=== PATIENT | female | born 1935 | race Caucasian/White ===

== ENCOUNTER → 2018-05-05 09:14 | Outpatient (POV) | payer MEDICARE, BC, SELFPAY | PROVIDERS: Visit Provider Dermatology | DX: Z00.00 Encounter for general adult medical examination without abnormal findings (principal) ==

== ENCOUNTER → 2018-08-13 15:00 | Outpatient (CLI) | payer MEDICARE, BC, SELFPAY ==
[2018-08-16 11:23] LABS: Occult Blood,Stool Negative (Negative)
== END ==
PROVIDERS: PCP Emergency Medicine; Visit Provider Emergency Medicine
DX: D64.9 Anemia, unspecified (principal)
CPT/HCPCS: 82272; G0328

== ENCOUNTER → 2018-08-14 15:30 | Outpatient (CLI) | payer MEDICARE, BC, SELFPAY ==
[2018-08-16 11:23] LABS: Occult Blood,Stool Negative (Negative)
== END ==
PROVIDERS: PCP Emergency Medicine; Visit Provider Emergency Medicine
DX: D64.9 Anemia, unspecified (principal)
CPT/HCPCS: 82272; G0328

== ENCOUNTER → 2018-08-15 16:00 | Outpatient (CLI) | payer MEDICARE, BC, SELFPAY ==
[2018-08-16 11:23] LABS: Occult Blood,Stool Negative (Negative)
== END ==
PROVIDERS: PCP Emergency Medicine; Visit Provider Emergency Medicine
DX: D64.9 Anemia, unspecified (principal)
CPT/HCPCS: 82272; G0328

== ENCOUNTER → 2018-08-16 09:35 | Outpatient (CLI) | payer MEDICARE, BC, SELFPAY ==
[2018-08-16 09:42] LABS: Microscopic, Urine URINE MICROSCOPIC (MICROSCOPIC)
[2018-08-16 09:57] LABS: Appearance,Urine CLEAR (Clear); Bilirubin,Urine Negative (Negative); Blood, Urine Negative (Negative); Color,Urine YELLOW (Yellow); Glucose,Urine (UA) Negative (Negative); Ketones,Urine Negative (Negative); Leukocyte Esterase,Urine Negative (Negative); Nitrate,Urine Negative (Negative); PH,Urine 7.5 (5.0-8.5); Protein,Urine Negative (Negative); Urobilinogen,Urine 0.2 EU/dl (0.2)
[2018-08-16 10:13] LABS: Bacteria,Urine Trace /lpf
[2018-08-16 10:37] LABS: Basophils % 0.4 % (0.1-2.0); Eosinophils # 0.2 K/mm3 (0.0-0.4); Eosinophils % 4.7 % (0.1-12.0); Hematocrit 38.7 % (37.0-47.0); Hemoglobin 12.5 g/dL (12.2-16.2); Lymphocytes # 2.5 K/mm3 (0.7-4.5); Lymphocytes % 49.3 K/mm3 (10-50); Mean Corpuscular HGB Conc 32.2 g/dL (31.8-35.4); Mean Corpuscular Hemoglobin 29.3 pg (27.0-31.2); Mean Platelet Volume 6.7 fl (7.4-10.4); Monocytes # 0.3 K/mm3 (0.1-1.0); Monocytes % 5.2 % (1.7-9.3); Neutrophils % 40.3 % (37.0-80.0); Platelet Count 249 K/mm3 (142-424); Red Blood Count 4.26 M/mm3 (4.20-5.40); Red Cell Distribution Width 13.4 % (11.5-17.5); Reticulocyte % (Auto) 1.5 % (0.9-3.2)
[2018-08-17 13:56] LABS: Haptoglobin 134 mg/dL (34-200)
== END ==
PROVIDERS: PCP Emergency Medicine; Visit Provider Emergency Medicine
DX: D64.9 Anemia, unspecified (principal)
CPT/HCPCS: 36415; 81001; 83010; 85025; 85044

== ENCOUNTER → 2018-09-20 14:22 | Outpatient (CLI) | payer MEDICARE, BC, SELFPAY ==
--- NOTE | 2018-09-20 14:27 | XR_ITS ---
XR DEXA axial skeleton HISTORY: ITS.REASON: POSTMENOPAUSAL ORDERING PHYSICIAN: Yanick Fowler MD PATIENT AGE: 83 years COMPARISON: 03/16/2014 FINDINGS: The BMD measured at the Left femoral neck is 0.974 g/cm squared with a T score of -0.5. This is considered Normal according to the World Health Organization criteria. Fracture risk is low. The L1 L4 density has a T score of 0.0 which is normal. IMPRESSION: Normal bone density. Low fracture risk. Suggest follow up exam September 2020
--- NOTE | 2018-09-20 14:27 | MM_ITS ---
MM Dig screening mamm BI w/CAD ORDERING PHYSICIAN : Yanick Fowler MD PATIENT AGE: 83 years GENDER: Female COMPARISON: September 2017, August 2016, 2014, 2013 2012 . July 2011 INDICATION: ITS.REASON: SCREENING no hormones. No new complaints.. Family history maternal aunt with breast cancer in her 50s TECHNIQUE: Standard CC and MLO images were obtained. R2 CAD reviewed. Additional repeat right MLO view included FINDINGS: Lower density breast with generalized fatty replacement and minimal residual fibroglandular elements bilaterally. . No new areas of concern. No dominant mass. No suspicious calcifications. There are some scattered benign punctate calcifications some of which reflects benign skin calcifications both breast which are unchanged RIGHT BREAST:No new areas concern. Follow-up in one year LEFT BREAST:No new areas significant concern. Tiny stable area slightly more evident fibroglandular elements at the central left breast appears stable since 2010 IMPRESSION: Stable bilateral mammogram. Follow-up follow-up in one year recommended. BI-RADS Category: 1 Negative RECOMMENDED FOLLOW-UP: 1YR 1 YEAR FOLLOW-UP (A letter has been sent to the patient regarding results of the study.)
== END ==
PROVIDERS: PCP Family Medicine; Visit Provider Family Medicine
DX: Z12.31 Encounter for screening mammogram for malignant neoplasm of breast (principal); Z78.0 Asymptomatic menopausal state
CPT/HCPCS: 77067; 77080

== ENCOUNTER → 2019-04-25 14:19 | Outpatient (POV) | payer MEDICARE, BC, SELFPAY | PROVIDERS: Visit Provider Dermatology | DX: Z00.00 Encounter for general adult medical examination without abnormal findings (principal) ==

== ENCOUNTER → 2019-08-15 09:37 | Outpatient (POV) | payer MEDICARE, BC, SELFPAY | PROVIDERS: Visit Provider Dermatology | DX: Z00.00 Encounter for general adult medical examination without abnormal findings (principal) ==

== ENCOUNTER → 2019-09-12 14:42 | Outpatient (POV) | payer MEDICARE, BC, SELFPAY | PROVIDERS: Visit Provider Dermatology | DX: Z00.00 Encounter for general adult medical examination without abnormal findings (principal) ==

== ENCOUNTER → 2019-10-06 08:43 | Outpatient (CLI) | payer MEDICARE, BC, SELFPAY ==
--- NOTE | 2019-10-06 08:49 | MM_ITS ---
PROCEDURE: MM DIG SCREENING MAMM BI W/CAD CLINICAL INDICATION: SCREENING There is a history of breast cancer patient's maternal aunt. COMPARISON: [facility] DIG MAMM-SCREEN SARITA from 08/31/2016 [facility] DIG MAMM-SCREEN [facility] W/CAD from 09/03/2017 [facility] MM Dig screening mamm BI w/CAD from 09/20/2018 TECHNIQUE: Standard CC and MLO images were obtained. R2 CAD reviewed. FINDINGS: The breasts are composed primarily of fat with scattered fibroglandular densities throughout each breast. There are 2 mole markers right breast and a single mole marker left breast. There are few benign-appearing microcalcifications in each breast. There is no suspicious lesion in either breast and no suspicious microcalcifications. IMPRESSION: Fibrofatty parenchyma with no suspicious lesions seen BI-RAD Category: 2 Benign Finding(s) FOLLOW-UP: 1YR 1 Year Follow-up (A letter has been sent to the patient regarding results of the study.) Dictated by: Dr. Maynor Stahl MD 10/06/2019 14:[address] Maynor Stahl MD in [place] 10/06/2019 14:23
== END ==
PROVIDERS: PCP Family Medicine; Visit Provider Family Medicine
DX: Z12.31 Encounter for screening mammogram for malignant neoplasm of breast (principal)
CPT/HCPCS: 77067

== ENCOUNTER → 2020-04-30 08:54 | Outpatient (POV) | payer MEDICARE, BC, SELFPAY | PROVIDERS: PCP Family Medicine; Visit Provider Physician Assistant | DX: Z00.00 Encounter for general adult medical examination without abnormal findings (principal) ==

== ENCOUNTER → 2020-07-16 08:42 | Outpatient (POV) | payer MEDICARE, BC, SELFPAY | PROVIDERS: Visit Provider Dermatology | DX: Z00.00 Encounter for general adult medical examination without abnormal findings (principal) ==

== ENCOUNTER → 2020-10-10 08:42 | Outpatient (CLI) | payer MEDICARE, BC, SELFPAY ==
--- NOTE | 2020-10-10 08:49 | MM_ITS ---
PROCEDURE: MM DIG SCREENING MAMM BI W/CAD Digital Breast Tomosynthesis Included CLINICAL INDICATION: SCREENING There is a history of breast cancer in the patient's maternal aunt. COMPARISON: MG [facility] DIG MAMM-SCREEN [facility]ITA W/CAD from 09/03/2017 MG [facility] MM Dig screening mamm BI w/CAD from 09/20/2018 MG MM DIG SCREENING MAMM BI W/CAD from 10/06/2019 TECHNIQUE: Standard CC and MLO images and 3D Tomosynthesis was obtained. R2 CAD reviewed. FINDINGS: Mild scattered fibroglandular densities are seen. There is a mole marker right breast. There are few benign-appearing microcalcifications in each breast. There is no suspicious lesion and no suspicious microcalcifications. IMPRESSION: Fibrofatty parenchyma with no suspicious lesions seen BI-RAD Category: 2 Benign Finding(s) FOLLOW-UP: 1YR 1 Year Follow-up (A letter has been sent to the patient regarding results of the study.) Dictated by: Dr. Maynor Stahl MD 10/11/2020 10:04 Dr. Maynor Stahl MD in [place] 10/11/2020 10:04
== END ==
PROVIDERS: PCP Family Medicine; Visit Provider Family Medicine
DX: Z12.31 Encounter for screening mammogram for malignant neoplasm of breast (principal)
CPT/HCPCS: 77063; 77067

== ENCOUNTER → 2021-03-18 10:26 | Outpatient (CLI) | payer MEDICARE, BC, SELFPAY ==
[2021-03-18 11:02] LABS: Chloride 101 mmol/L (98-107)
[2021-03-18 11:03] LABS: Potassium 3.6 mmoL/L (3.5-5.1); Sodium 138 mmol/L (136-145)
[2021-03-18 11:05] LABS: Alanine Aminotransferase 21 U/L (12-78); Aspartate Amino Transferase 30 U/L (14-36); Blood Urea Nitrogen 23 mg/dl (7-17); Estimated Glomerular Filt Rate 68 ml/min (>60); GFR (African American) 83 ML/MIN (>60)
[2021-03-18 11:06] LABS: Albumin Level 4.2 g/dl (3.5-5.0); Albumin/Globulin Ratio 1.4 (1.1-1.8); Alkaline Phosphatase 82 U/L (38-126); Anion Gap 12.6 mEq/L (5-15); Bilirubin,Total 0.5 mg/dl (0.2-1.3); Calcium 9.3 mg/dl (8.4-10.2); Carbon Dioxide 28 mmol/L (22.0-30.0); Chol/HDL Ratio 1.9 (1-3.5); Cholesterol 113 mg/dl (140-200); Globulin 2.9 g/dL (1.3-3.2); Glucose 118 mg/dl (74-100); HDL Cholesterol 58 mg/dl (40-60); Total Protein,Serum 7.1 g/dl (6.3-8.2); Triglycerides 106 mg/dl (30-150); VLDL Cholesterol 21 mg/dL (0-40)
[2021-03-18 11:20] LABS: Direct LDL Cholesterol < 30.00 mg/dL (100-129)
[2021-03-18 11:39] LABS: Thyroid Stimulating Hormone 0.67 uIU/mL (0.465-4.68)
[2021-03-18 11:42] LABS: Hemoglobin A1C 7.4 % (4.0-6.0)
== END ==
PROVIDERS: Visit Provider Family Medicine
DX: E78.5 Hyperlipidemia, unspecified (principal); E11.9 Type 2 diabetes mellitus without complications; Z79.84 Long term (current) use of oral hypoglycemic drugs
CPT/HCPCS: 36415; 80053; 80061; 83036; 84443

== ENCOUNTER → 2021-04-29 14:47 | Outpatient (POV) | payer MEDICARE, BC, SELFPAY | PROVIDERS: Visit Provider Dermatology | DX: Z00.00 Encounter for general adult medical examination without abnormal findings (principal) ==

== ENCOUNTER → 2021-07-08 09:35 | Outpatient (POV) | payer MEDICARE, BC, SELFPAY | PROVIDERS: Visit Provider Dermatology | DX: Z00.00 Encounter for general adult medical examination without abnormal findings (principal) ==

== ENCOUNTER → 2021-09-30 14:42 | Outpatient (POV) | payer MEDICARE, BC, SELFPAY | PROVIDERS: Visit Provider Dermatology | DX: Z00.00 Encounter for general adult medical examination without abnormal findings (principal) ==

== ENCOUNTER → 2021-10-17 14:58 | Outpatient (CLI) | payer MEDICARE, BC, SELFPAY ==
--- NOTE | 2021-10-17 15:02 | MM_ITS ---
PROCEDURE INFORMATION: Exam: MG Bilateral Screening 3D Mammography Exam date and time: 10/17/2021 3:02 PM Age: 86 years old Clinical indication: Screening mammogram TECHNIQUE: Imaging protocol: Bilateral screening tomosynthesis and 2D mammography including computer-aided detection (CAD) when performed. COMPARISON: 1. MG MM DIG SCREENING MAMM BI W/CAD 10/10/2020 8:55 AM 2. MG MM DIG SCREENING MAMM BI W/CAD 10/06/2019 9:06 AM 3. MG [facility] MM Dig screening mamm BI w/CAD 09/20/2018 2:49 PM 4. MG [facility] DIG MAMM-SCREEN [facility]ITA W/CAD 09/03/2017 9:09 AM FINDINGS: MAMMOGRAPHY: Breast composition: There are scattered areas of fibroglandular density. Mass: None. Architectural distortion: No new or suspicious architectural distortion. Calcifications: No new or suspicious calcifications are present Asymmetric density: No new or suspicious asymmetric density is present Skin thickening: None. Axillary adenopathy: None. IMPRESSION: No mammographic evidence of malignancy. Recommend annual screening mammography unless otherwise clinically indicated. ASSESSMENT: BI-RADS category 1: Negative
== END ==
PROVIDERS: PCP Family Medicine; Visit Provider Family Medicine
DX: Z12.31 Encounter for screening mammogram for malignant neoplasm of breast (principal)
CPT/HCPCS: 77063; 77067

== ENCOUNTER → 2022-02-05 08:57 | Outpatient (CLI) | payer MEDICARE, BC, SELFPAY ==
--- NOTE | 2022-02-05 09:05 | XR_ITS ---
FINAL REPORT TECHNIQUE: Bone densitometry calculations of the lumbar spine and left hip were obtained. CLINICAL HISTORY: . post menopausal FINDINGS: Using L1-4, the bone mineral density of the spine is 1.122 g/cm2, corresponding to T-score of 0.7. Using the left hip, the bone mineral density of the femoral neck is 0.820 g/cm2, corresponding to a T-score of -1.0. Using the right hip, the bone mineral density of the femoral neck is 0.845 g/cm2, corresponding to a T-score of 0.0. NOTE: T-score: Standard deviation compared with peak bone mass of young adult mean. *Following the recommendations of the International Society of Bone densitometry, classification of hip BMD is based on the lower of two T-scores; total hip or femoral neck. IMPRESSION: Normal bone mineral density of the lumbar spine and hip. FRAX not recorded due to also course being above -1.0. Reviewed, Interpreted and Dictated by Yanick Collins III, MD Transcribed by Guerda Quezada Authenticated by Yanick Collins III, MD on 02/05/2022 10:51:08 AM [facility]
== END ==
PROVIDERS: PCP Family Medicine; Visit Provider Physician Assistant
DX: Z78.0 Asymptomatic menopausal state (principal)
CPT/HCPCS: 77080

== ENCOUNTER → 2022-04-14 09:18 | Outpatient (POV) | payer MEDICARE, BC, SELFPAY | PROVIDERS: Visit Provider Dermatology | DX: Z00.00 Encounter for general adult medical examination without abnormal findings (principal) ==

== ENCOUNTER → 2022-07-07 10:07 | Outpatient (POV) | payer MEDICARE, BC, SELFPAY | PROVIDERS: Visit Provider Dermatology | DX: Z00.00 Encounter for general adult medical examination without abnormal findings (principal) ==

== ENCOUNTER → 2022-10-29 07:59 | Outpatient (CLI) | payer MEDICARE, BC, SELFPAY ==
--- NOTE | 2022-10-29 08:02 | MM_ITS ---
PROCEDURE INFORMATION: Exam: MG Bilateral Screening 3D Mammography Exam date and time: 10/29/2022 7:55 AM Age: 87 years old Clinical indication: Screening examination TECHNIQUE: Imaging protocol: Bilateral Screening tomosynthesis and 2D mammography including computer-aided detection (CAD) when performed. COMPARISON: 1. MG MM DIG SCREENING MAMM BI W/CAD 10/17/2021 2:57 PM 2. MG MM DIG SCREENING MAMM BI W/CAD 10/10/2020 8:55 AM FINDINGS: MAMMOGRAPHY: Breast composition: There are scattered areas of fibroglandular density. Mass: None. Architectural distortion: None. Calcifications: No suspicious calcifications. Asymmetric density: None. Skin thickening: None. Axillary adenopathy: None. IMPRESSION: No mammographic evidence of malignancy. Annual screening is recommended unless otherwise clinically indicated. ASSESSMENT: BI-RADS Category 1: Negative
== END ==
PROVIDERS: PCP Family Medicine; Visit Provider Family Medicine
DX: Z12.31 Encounter for screening mammogram for malignant neoplasm of breast (principal)
CPT/HCPCS: 77063; 77067

== ENCOUNTER → 2022-11-17 14:54 | Outpatient (CLI) | payer MEDICARE, BC, SELFPAY ==
--- NOTE | 2022-11-17 15:02 | XR_ITS ---
FINAL REPORT CLINICAL HISTORY: PAIN FINDINGS: An AP view of the pelvis and a frog leg views of the right hip were obtained. There is no prior exam for comparison. There is no acute fracture or dislocation. 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 Remaining osseous pelvis is within normal limits. Soft tissues are within normal limits. IMPRESSION: No acute osseous abnormality of the right hip. If pain persists, consider MR. Reviewed, Interpreted and Dictated by Jazmyne Bailey MD Transcribed by Naren Ocampo Authenticated and [facility]
== END ==
PROVIDERS: PCP Nurse Practitioner Family; Visit Provider Nurse Practitioner Family
DX: M25.551 Pain in right hip (principal)
CPT/HCPCS: 73502

== ENCOUNTER → 2022-11-23 10:56 | Outpatient (CLI) | payer MEDICARE, BC, SELFPAY ==
--- NOTE | 2022-11-23 11:01 | XR_ITS ---
FINAL REPORT CLINICAL HISTORY: BACK PAIN FINDINGS: AP and lateral views of the sacrum and coccyx were obtained. There is no prior exam for comparison. There is no acute fracture or other acute osseous abnormality. There is degenerative disease of the SI joints bilaterally with mild sclerosis across the joint, left greater than right. The sacrococcygeal articulation appears within normal limits. No acute soft tissue abnormality is present. IMPRESSION: SI joint degenerative disease. Reviewed, Interpreted and Dictated by Jazmyne Bailey MD Transcribed by Naren Ocampo Authenticated and [facility]
--- NOTE | 2022-11-23 11:01 | XR_ITS ---
FINAL REPORT CLINICAL HISTORY: BACK PAIN FINDINGS: AP, lateral, and oblique views of the lumbar spine were obtained. There is grade 2-3 anterior spondylolisthesis of L5 on S1. There is mild retrolisthesis of L1 on L2 and L2 on L3. There is no acute fracture. There is multilevel degenerative disease most pronounced at L5-S1. No acute paraspinal abnormality is identified. IMPRESSION: Grade 2-3 anterior spondylolisthesis of L5 on S1. Multilevel degenerative disease. Reviewed, Interpreted and Dictated by Jazmyne Bailey MD Transcribed by Naren Ocampo Authenticated and [facility]
== END ==
PROVIDERS: PCP Family Medicine; Visit Provider Nurse Practitioner Family
DX: M54.50 Low back pain, unspecified (principal); M46.1 Sacroiliitis, not elsewhere classified
CPT/HCPCS: 72110; 72220

== ENCOUNTER → 2022-11-27 13:56 | Outpatient (CLI) | payer MEDICARE, BC, SELFPAY ==
--- NOTE | 2022-11-27 13:59 | MR_ITS ---
FINAL REPORT TECHNIQUE: Multiplanar MR without contrast CLINICAL HISTORY: CONSTANT HIP PAIN right hip pain x 1 month pt stated hip wants to give out FINDINGS: The marrow signal pattern is normal. There is no evidence of avascular necrosis. There is mild thinning of the articular cartilage compatible with mild degenerative change. Physiologic joint effusion is seen. Labrum shows a normal MR appearance. Adjacent soft tissues are unremarkable. IMPRESSION: Mild degenerative change. Reviewed, Interpreted and Dictated by Yanick Flores MD Transcribed by Guerda Quezada Authenticated and . [facility]
== END ==
PROVIDERS: PCP Family Medicine; Visit Provider Nurse Practitioner Family
DX: M25.551 Pain in right hip (principal)
CPT/HCPCS: 73721

== ENCOUNTER → 2022-12-24 11:01 | Outpatient (POV) | payer MEDICARE, BC, SELFPAY ==
[2022-12-24 11:53] VITALS: BP 149/94; PULSE 82; RESP 18; O2SAT 98; BMI 25.6
--- NOTE | 2022-12-24 12:26 | EXP.PAIN.OV ---
HPI Data of Consult Patient: new to practice Consult date: 12/24/22 Requesting Physician: Leah Llanos APRN Primary Care Provider: Leonides Haynes MD Consult Narrative Reason for consult: Right hip pain, right buttocks pain, low back pain History of present illness: Ms. Vanessa is a 87 year old female who presents today as a new patient. She is a referral from Femi Llanos's office. Today she rates her pain a 10 out of 10. Patient states that she is experiencing significant pain along her right buttocks into her right hip. Patient states this has been going on since . Patient denies any specific trauma or injury. Patient states the only thing that she can think of was that she was leaning over to get a can in her pantry and felt something pull. Patient does state that it has progressively worsened since that time. Patient does describe this as a aching sensation that is worse with increased activity. Patient has had imaging of her lumbar spine along with her hip and sacrum. Patient states she does typically use Tylenol and ibuprofen with some improvement. Patient states she will also use a heating pad and Salonpas patches for additional relief. Patient does state this helps however it is only temporary. Patient is very active and goes to the wellness center on a daily basis. Patient denies any previous injection history. Patient is currently managed with gabapentin 300 mg twice a day from Dr. Haynes's office. Patient denies any side effects from this medication. Her Ravinder is [phone]. Its been reviewed and appropriate. CC: Leah Llanos APRN [facility] Disclaimer: The information contained in this section may have been updated after the patient was seen, as this information can be updated by other users. Medical History (Updated 12/24/22 @ 12:33 by Leah Llanos APRN) Diabetes HLD (hyperlipidemia) HTN (hypertension) Neuropathy Surgical History (Updated 12/24/22 @ 11:56 by Amber Osborne RN) H/O: hysterectomy Family History (Updated 12/24/22 @ 11:55 by Amber Osborne RN) Other Cancer Diabetes Social History (Updated 12/24/22 @ 11:57 by Amber Osborne RN) Smoking Status: Smoker, status unknown alcohol intake: never current occupational status: retired Travel in the last 8 weeks: None household members: family housing: house caffeine: No Review of Systems Review of Systems Review of systems:: pertinent systems reviewed and negative unless documented below Review of systems (narrative): Review of Systems: General: No recent weight changes, no fever, no sleep disturbances Respiratory: No cough, no shortness of air, no recurring pulmonary infections Cardiovascular/peripheral vascular: No chest pain, no palpitations, no edema, no shortness of breath Gastrointestinal: No new onset incontinence, normal bowel movements reported Genitourinary: No new onset incontinence Musculoskeletal: Right buttocks pain, hip pain, low back pain Psychiatric: [Normal mood/affect] Neurological: [Denies weakness in extremities], [denies balance issues] Meds Home Medications and Allergies Home Medications Medication Instructions Recorded Confirmed Type aspirin 81 mg chewable tablet 81 mg PO DAILY thinner 12/05/18 12/24/22 History furosemide 40 mg tablet 40 mg PO DAILY Fluid 12/05/18 12/24/22 History gabapentin 300 mg capsule 300 mg PO BID neuropathy 12/05/18 12/24/22 History glipizide 5 mg tablet, extended 5 mg PO DAILY diabtes 12/05/18 12/24/22 History release 24 hr hydrochlorothiazide 25 mg tablet 25 mg PO DAILY blood pressure 12/05/18 12/24/22 History lisinopril 10 mg tablet 10 mg PO DAILY blood pressure 12/05/18 12/24/22 History metformin 1,000 mg tablet 1 tab PO BID Diabetes 12/05/18 12/24/22 History potassium chloride 20 mEq 1 tab PO DAILY Supplement 12/05/18 12/24/22 History tablet,extended release(part/cryst) simvastatin 20 mg tablet 20 mg PO DAILY Cholesterol 02
== END ==
PROVIDERS: PCP Family Medicine; Visit Provider Nurse Practitioner Family
DX: M51.16 Intervertebral disc disorders with radiculopathy, lumbar region (principal); M25.551 Pain in right hip; G57.01 Lesion of sciatic nerve, right lower limb; M46.1 Sacroiliitis, not elsewhere classified; M43.17 Spondylolisthesis, lumbosacral region; Z79.899 Other long term (current) drug therapy
CPT/HCPCS: 99202; G0463

== ENCOUNTER 2023-01-05 13:46 | Day surgery (SDC) | payer MEDICARE, BC, SELFPAY ==
[2023-01-05 14:04] VITALS: BP 183/77; PULSE 81; RESP 18; TEMP 36.6; O2SAT 97; BMI 25.6
[2023-01-05 14:08] VITALS: BP 184/88; PULSE 83; RESP 18; O2SAT 97
[2023-01-05 14:09] VITALS: BP 184/88; PULSE 83; RESP 18; O2SAT 98
[2023-01-05 14:13] VITALS: BP 188/75; PULSE 76; RESP 18; O2SAT 97
--- NOTE | 2023-01-05 14:28 | EXP.PAIN.PRO ---
Procedure Date: 01/05/23 Time: 14:28 Anesthesiologist:: Edu Gupta CRNA Complications:: None Pre-procedure Diagnosis:: Right piriformis syndrome. Post-procedure Diagnosis:: Same. Indications for Procedure:: Very pleasant 87-year-old female that comes our clinic today with extreme point tenderness over the right posterior buttock area. This is in fact over the right piriformis. Patient is very active working in the yard mowing grass etc. She rates her pain 7/10 Procedure Details:: Details of the procedure explained to the patient. The patient was taken the procedure room and placed in the prone position. Using fluoroscopy guidance a 22-gauge 3 inch spinal needle was used to access the right piriformis muscle. Needle position was confirmed in the AP and lateral view using contrast dye and a positive spread. At this time after negative aspiration 5 cc of 0.25% Marcaine +40 mg of Depo-Medrol was injected. Patient tolerated procedure without difficulty. There were complications. Plan and Disposition:: Patient was discharged without incident.
== END 2023-01-05 14:13 | disposition home or self-care (01) ==
LOC: SC.PAINP 13:47
PROVIDERS: PCP Family Medicine; Visit Provider Nurse Anesthetist, Certified Registered
DX: G57.01 Lesion of sciatic nerve, right lower limb (principal); M51.16 Intervertebral disc disorders with radiculopathy, lumbar region; M25.551 Pain in right hip
CPT/HCPCS: 20552; J1040; Q9966

== ENCOUNTER → 2023-01-25 13:12 | Outpatient (POV) | payer MEDICARE, BC, SELFPAY ==
--- NOTE | 2023-01-25 13:17 | EXP.PAIN.SOA ---
[facility] Pain Management SOAP Note Subjective:: Ms. Vanessa is a 87 year old female who presents today for follow-up of right piriformis injection on 01/05/2023.? We are currently treating the patient for degenerative disc disease of lumbar spine with lumbar radiculopathy symptoms, right hip pain, right piriformis syndrome, history of sacroiliitis, low back pain. Today she rates her pain a 4 out of 10.? She states she has had at least 70% improvement following this injection and states it still continuing to provide relief. She has had decreased pain symptoms with increased functionality and doing activities as simple as ambulation. She states she will occasionally still have some pain in her low back along the right side and into her buttocks however it is much more manageable following this injection. She states that it is tolerable. She does use a heating pad and extra strength Tylenol as needed however she states that she has not had to do this lately with the decreased pain. Patient is currently managed with gabapentin 300 mg twice a day from Dr. Haynes's office.? Patient denies any side effects from this medication.? Her Ravinder is [phone].? Its been reviewed and appropriate. Review of Systems: General: No recent weight changes, no fever, no sleep disturbances Respiratory: No cough, no shortness of air, no recurring pulmonary infections Cardiovascular/peripheral vascular: No chest pain, no palpitations, no edema, no shortness of breath Gastrointestinal: No new onset incontinence, normal bowel movements reported Genitourinary: No new onset incontinence Musculoskeletal: Buttocks pain right-sided Psychiatric: [Normal mood/affect] Neurological: [Denies weakness in extremities], [denies balance issues] Objective:: Physical Exam: General: Alert and oriented x3, no acute distress, pleasant and cooperative Lungs: Respirations even and unlabored, symmetrical chest expansion Eyes: PERRL Musculoskeletal: Flexion and extension of lumbar [spine] somewhat guarded secondary to pain, [antalgic gait noted] Neurological: Speech clear, no gross sensory deficit Assessment:: degenerative disc disease of lumbar spine with lumbar radiculopathy symptoms, right hip pain, right piriformis syndrome, history of sacroiliitis, low back pain Plan:: Patient has had significant improvement following her right piriformis injection and does not require any additional injective therapy at this time. Patient will return to clinic in 1 month for reevaluation of symptoms and plan of care. Patient has been instructed to contact the clinic with any concerns before the next appointment. Dr. Lynn has reviewed this note and agrees with this plan of care. This note was dictated using voice recognition software and make contain errors or omissions. [facility] Disclaimer: The information contained in this section may have been updated after the patient was seen, as this information can be updated by other users. Medical History Diabetes HLD (hyperlipidemia) HTN (hypertension) Neuropathy Surgical History H/O: hysterectomy Family History Other Cancer Diabetes Social History Smoking Status: Smoker, status unknown alcohol intake: never current occupational status: retired Travel in the last 8 weeks: None household members: family housing: house caffeine: No
[2023-01-25 13:44] VITALS: BP 175/81; PULSE 80; RESP 18; O2SAT 97; BMI 25.6
== END ==
PROVIDERS: PCP Family Medicine; Visit Provider Nurse Practitioner Family
DX: M51.16 Intervertebral disc disorders with radiculopathy, lumbar region (principal); G57.01 Lesion of sciatic nerve, right lower limb; M25.551 Pain in right hip
CPT/HCPCS: 99212; G0463

== ENCOUNTER → 2023-02-08 13:20 | Outpatient (POV) | payer MEDICARE, BC, SELFPAY ==
--- NOTE | 2023-02-08 13:30 | EXP.PAIN.SOA ---
[facility] Pain Management SOAP Note Subjective:: Patient is a pleasant 87-year-old female who presents today for follow-up. We are currently treating the patient for degenerative disc disease of lumbar spine with lumbar radiculopathy symptoms, right hip pain, right piriformis syndrome, history of sacroiliitis, low back pain. Today she rates her pain a 10 out of 10. Patient denies any new trauma or injury. She states she has continued to have significant pain for several months however over the last 2 weeks she has had worsening right low back/buttock/hip pain. She does describe this as a constant aching, throbbing sensation that is worse with increased activity. Patient cannot tolerate even the simplest activities such as ambulation or cooking or cleaning due to her pain. She states it is frequently aggravated by prolonged walking or standing. She states it is unbearable. Patient does use extra strength Tylenol along with a heating pad however she states this is not doing anything for the pain. Patient is also prescribed gabapentin 300 mg twice a day from Dr. Haynes's office. Her Ravinder is [phone]. Its been reviewed and appropriate. Review of Systems: General: No recent weight changes, no fever, no sleep disturbances Respiratory: No cough, no shortness of air, no recurring pulmonary infections Cardiovascular/peripheral vascular: No chest pain, no palpitations, no edema, no shortness of breath Gastrointestinal: No new onset incontinence, normal bowel movements reported Genitourinary: No new onset incontinence Musculoskeletal: Right hip pain Psychiatric: [Normal mood/affect] Neurological: [Denies weakness in extremities], [denies balance issues] Objective:: Physical Exam: General: Alert and oriented x3, no acute distress, pleasant and cooperative Lungs: Respirations even and unlabored, symmetrical chest expansion Eyes: PERRL Musculoskeletal: Flexion and extension of lumbar spine somewhat guarded secondary to pain, [antalgic gait noted] extreme point tenderness at right SI with positive right Pop's, Rusty's, Gaenslen's, compression and distraction exam Neurological: Speech clear, no gross sensory deficit Assessment:: degenerative disc disease of lumbar spine with lumbar radiculopathy symptoms, right hip pain, right piriformis syndrome, history of sacroiliitis, low back pain Plan:: Patient is experiencing significant pain in her low back/right buttocks/right hip with limited range of motion. Patient had extreme point tenderness along her right SI with positive right Pop's, Rusty's, Gaenslen's, compression and distraction exam. Patient does have a longstanding history of chronic sacroiliitis. Patient has been experiencing significant pain for months with worsening pain in the last 2 weeks in this area. I have discussed with the patient that she may benefit from a right SI injection. Risk and benefits were discussed with the patient and she would like to proceed forward with this plan of care. We will schedule her for a right SI injection. Patient has been instructed to contact the clinic with any concerns before the next appointment. Dr. Lynn has reviewed this note and agrees with this plan of care. This note was dictated using voice recognition software and make contain errors or omissions. [facility] Disclaimer: The information contained in this section may have been updated after the patient was seen, as this information can be updated by other users. Medical History Diabetes HLD (hyperlipidemia) HTN (hypertension) Neuropathy Surgical History H/O: hysterectomy Family History Other Cancer Diabetes Social History Smoking Status: Smoker, status unknown alcohol intake: never current occupation
[2023-02-08 14:26] VITALS: BP 155/89; PULSE 80; RESP 18; O2SAT 97; BMI 25.6
== END ==
PROVIDERS: Visit Provider Nurse Practitioner Family
DX: M51.16 Intervertebral disc disorders with radiculopathy, lumbar region (principal); M25.551 Pain in right hip; M46.1 Sacroiliitis, not elsewhere classified; G57.01 Lesion of sciatic nerve, right lower limb
CPT/HCPCS: 99212; G0463

== ENCOUNTER 2023-02-16 08:51 | Day surgery (SDC) | payer MEDICARE, BC, SELFPAY ==
[2023-02-16 09:13] VITALS: BP 188/79; PULSE 75; RESP 18; TEMP 36.2; O2SAT 96; BMI 25.6
[2023-02-16 09:30] VITALS: BP 191/79; PULSE 67; RESP 18; O2SAT 96
--- NOTE | 2023-02-16 09:41 | EXP.PAIN.PRO ---
Procedure Date: 02/16/23 Time: 09:15 Anesthesiologist:: Edu Gupta CRNA Complications:: None Pre-procedure Diagnosis:: Right sacroiliitis Post-procedure Diagnosis:: Same Indications for Procedure:: Very pleasant 87-year-old female comes our clinic today for repeat right sacroiliac joint injection. She has extreme point tenderness over the right sacroiliac joint. She rates her pain 7/10. Patient has difficulty transitioning from sitting to standing. Difficulty with ambulation. Procedure Details:: Procedure: Right sacroliliac joint injection under fluoroscopy Informed consent was obtained and the risk and benefits of the procedure were explained to the patient.~ The patient was taken to the procedure room and noninvasive monitors were placed including noninvasive blood pressure cuff and pulse oximeter.~ The patient was placed prone on the procedure table.~ The~ right hip was cleansed using Betadine as a cleansing solution.~ C-arm fluorosocpy was used to view the right SI joint.~ The skin and subcutaneous tissues were anesthetized using Lidocaine 1.5% and a 25-gauge needle.~ After this, a 22-gauge spinal needle was inserted under fluoroscopic guidance into the inferior aspect of the right SI joint.~ Omnipaque dye was injected and a good spread was seen throughout the joint.~ After this, approximately 5 mL of bupivacaine 0.25% and Depo-Medrol 40 mg was incrementally injected into the sacroiliac joint.~ The patient tolerated the procedure well with no complications.~ The patient was observed in the Pain Clinic, then discharged home neurologically intact.~ Plan and Disposition:: Patient was discharged without incident.
== END 2023-02-16 09:30 | disposition home or self-care (01) ==
PROVIDERS: PCP Family Medicine; Visit Provider Nurse Anesthetist, Certified Registered
DX: M46.1 Sacroiliitis, not elsewhere classified (principal)
CPT/HCPCS: 27096; G0260; J1040

== ENCOUNTER → 2023-03-04 11:29 | Outpatient (POV) | payer MEDICARE, BC, SELFPAY ==
--- NOTE | 2023-03-04 11:47 | EXP.PAIN.SOA ---
[facility] Pain Management SOAP Note Subjective:: Patient is a pleasant 87-year-old female who presents today for follow-up of right SI injection on 02/16/2023. We are currently treating the patient for degenerative disc disease of lumbar spine with lumbar radiculopathy symptoms, right hip pain, right piriformis syndrome, right sacroiliitis, low back pain. Today she rates her pain a 4 out of 10. She states she has had at least 50% improvement following this injection and feels like it still continuing to provide additional relief. Patient states she has been able to increase her activity with less pain symptoms. Patient is currently managed with gabapentin 300 mg twice a day from her primary care doctor. Patient denies any side effects from this medication. Her Ravinder is [phone]. Its been reviewed and appropriate. Review of Systems: General: No recent weight changes, no fever, no sleep disturbances Respiratory: No cough, no shortness of air, no recurring pulmonary infections Cardiovascular/peripheral vascular: No chest pain, no palpitations, no edema, no shortness of breath Gastrointestinal: No new onset incontinence, normal bowel movements reported Genitourinary: No new onset incontinence Musculoskeletal: Low back pain Psychiatric: [Normal mood/affect] Neurological: [Denies weakness in extremities], [denies balance issues] Objective:: Physical Exam: General: Alert and oriented x3, no acute distress, pleasant and cooperative Lungs: Respirations even and unlabored, symmetrical chest expansion Eyes: PERRL Musculoskeletal: Flexion and extension of lumbar [spine] somewhat guarded secondary to pain, [antalgic gait noted] Neurological: Speech clear, no gross sensory deficit Assessment:: Degenerative disc disease of lumbar spine with lumbar radiculopathy symptoms, right hip pain, right piriformis syndrome, right sacroiliitis, low back pain Plan:: Patient has had significant improvement following her right SI injection and does not require any additional injective therapy at this time. Patient will return to clinic in 1 month for reevaluation of symptoms and plan of care. Patient has been instructed to contact the clinic with any concerns before the next appointment. Dr. Lynn has reviewed this note and agrees with this plan of care. This note was dictated using voice recognition software and make contain errors or omissions. [facility] Disclaimer: The information contained in this section may have been updated after the patient was seen, as this information can be updated by other users. Medical History Diabetes HLD (hyperlipidemia) HTN (hypertension) Neuropathy Surgical History H/O: hysterectomy Family History Other Cancer Diabetes Social History Smoking Status: Smoker, status unknown alcohol intake: never current occupational status: retired Travel in the last 8 weeks: None household members: family housing: house caffeine: No
[2023-03-04 12:54] VITALS: BP 144/69; PULSE 70; RESP 18; O2SAT 98; BMI 25.9
== END ==
PROVIDERS: PCP Family Medicine; Visit Provider Nurse Practitioner Family
DX: M51.16 Intervertebral disc disorders with radiculopathy, lumbar region (principal); M46.1 Sacroiliitis, not elsewhere classified; M25.551 Pain in right hip; G57.01 Lesion of sciatic nerve, right lower limb
CPT/HCPCS: 99212; G0463

== ENCOUNTER → 2023-04-05 10:08 | Outpatient (POV) | payer MEDICARE, BC, SELFPAY ==
--- NOTE | 2023-04-05 10:44 | EXP.PAIN.SOA ---
[facility] Pain Management SOAP Note Subjective:: Patient is a pleasant 88-year-old female who presents today for follow-up. We are currently treating the patient for degenerative disc disease of the lumbar spine with lumbar radiculopathy symptoms, right hip pain, right piriformis syndrome, right sacroiliitis, low back pain. Today she rates her pain a 9 out of 10. Patient denies any new trauma or injury. Patient denies any change in location or type of pain she experiences. Patient has had multiple injections for her sacroiliitis with her last 1 back in January. She does state that the pain is still tolerable at this area however she denies have occasional soreness. She does state her pain today is worse around her lower buttocks on the right side. She does describe this as an aching, throbbing sensation that is worse with increased activity. She states that she cannot do activities of daily living such as cooking and cleaning due to the increased pain. Patient states she also has to change positions frequently due to her pain at her lower buttocks. Patient is currently managed with gabapentin 300 mg twice a day from Dr. Haynes's office. Patient denies any side effects from this medication. Her Ravinder is [id number]. It is reviewed and appropriate. Review of Systems: General: No recent weight changes, no fever, no sleep disturbances Respiratory: No cough, no shortness of air, no recurring pulmonary infections Cardiovascular/peripheral vascular: No chest pain, no palpitations, no edema, no shortness of breath Gastrointestinal: No new onset incontinence, normal bowel movements reported Genitourinary: No new onset incontinence Musculoskeletal: Right buttocks pain Psychiatric: [Normal mood/affect] Neurological: [Denies weakness in extremities], [denies balance issues] Objective:: Physical Exam: General: Alert and oriented x3, no acute distress, pleasant and cooperative Lungs: Respirations even and unlabored, symmetrical chest expansion Eyes: PERRL Musculoskeletal: Flexion and extension of lumbar [spine] somewhat guarded secondary to pain, [antalgic gait noted] extreme point tenderness noted along right piriformis muscle Neurological: Speech clear, no gross sensory deficit Assessment:: Degenerative disc disease of lumbar spine with lumbar radiculopathy symptoms, right hip pain, right piriformis syndrome, right sacroiliitis, low back pain Plan:: Patient is experiencing significant pain in her low back along her right buttocks. Patient had limited range of motion and extreme point tenderness along her right piriformis muscle. I have discussed with the patient that she may benefit from a right piriformis injection. Risk and benefits were discussed with the patient and she would like to proceed forward with this plan of care. We will schedule the patient for a right piriformis injection. Patient has been instructed to contact the clinic with any concerns before the next appointment. Dr. Lynn has reviewed this note and agrees with this plan of care. This note was dictated using voice recognition software and make contain errors or omissions. [facility] Disclaimer: The information contained in this section may have been updated after the patient was seen, as this information can be updated by other users. Medical History Diabetes HLD (hyperlipidemia) HTN (hypertension) Neuropathy Surgical History H/O: hysterectomy Family History Other Cancer Diabetes Social History Smoking Status: Smoker, status unknown alcohol intake: never current occupational status: retired Travel in the last 8 weeks: None household members: family housing: house caffeine: No
[2023-04-05 12:27] VITALS: BP 128/69; PULSE 77; RESP 17; O2SAT 97; BMI 25.6
== END ==
PROVIDERS: PCP Family Medicine; Visit Provider Nurse Practitioner Family
DX: M51.16 Intervertebral disc disorders with radiculopathy, lumbar region (principal); M25.551 Pain in right hip; G57.01 Lesion of sciatic nerve, right lower limb; M46.1 Sacroiliitis, not elsewhere classified
CPT/HCPCS: 99212; G0463

== ENCOUNTER → 2023-04-06 11:16 | Outpatient (CLI) | payer MEDICARE, BC, SELFPAY ==
[2023-04-06 12:49] LABS: Hemoglobin A1C 8.9 % (4.0-6.0)
== END ==
PROVIDERS: PCP Nurse Practitioner Family; Visit Provider Nurse Practitioner Family
DX: E11.9 Type 2 diabetes mellitus without complications (principal); Z79.84 Long term (current) use of oral hypoglycemic drugs
CPT/HCPCS: 36415; 83036

== ENCOUNTER 2023-04-13 08:03 | Day surgery (SDC) | payer MEDICARE, BC, SELFPAY ==
[2023-04-13 08:23] VITALS: BP 134/90; PULSE 66; RESP 18; TEMP 36.1; O2SAT 97; BMI 25.6
[2023-04-13 08:56] VITALS: BP 163/82; PULSE 66; RESP 18; O2SAT 97
--- NOTE | 2023-04-13 08:57 | EXP.PAIN.PRO ---
Procedure Date: 04/13/23 Time: 08:40 Anesthesiologist:: Edu Gupta CRNA Complications:: None Pre-procedure Diagnosis:: Pain right buttock. Post-procedure Diagnosis:: Same Indications for Procedure:: Very pleasant 88-year-old female that comes our clinic today with persistent right buttock pain. She describes the pain as constant, dull, aching. She rates the pain 7/10. Procedure Details:: Details of the procedure were explained to the patient. The patient was taken to procedure room placed in the prone position on the fluoroscopy table. The area over the right buttock was cleaned using chlorhexidine as a cleansing solution. Using fluoroscopy guidance a 22-gauge 3 and half inch spinal needle was used to access the right piriformis muscle. Needle position was verified using 0.5 mL of contrast dye and a lateral spread. After negative aspiration 3 cc of 0.25% Marcaine +3 cc of 1% lidocaine and 40 mg of Depo-Medrol was injected. Patient tolerated procedure without difficulty. There are no complications Plan and Disposition:: Patient tolerated procedure without difficulty. There were no complications. Patient was discharged without incident.
== END 2023-04-13 08:56 | disposition home or self-care (01) ==
PROVIDERS: PCP Nurse Practitioner Family; Visit Provider Nurse Anesthetist, Certified Registered
DX: M79.18 Myalgia, other site (principal)
CPT/HCPCS: 20552; 77002; J1040; Q9966

== ENCOUNTER → 2023-04-29 09:19 | Outpatient (POV) | payer MEDICARE, BC, SELFPAY ==
--- NOTE | 2023-04-29 09:28 | EXP.PAIN.SOA ---
[facility] Pain Management SOAP Note Subjective:: Patient is a pleasant 88-year-old female who presents today for follow-up of right piriformis injection on 04/13/2023. We are currently treating the patient for degenerative disc disease of lumbar spine with lumbar radiculopathy symptoms, right piriformis syndrome, right sacroiliitis, low back pain. Today she states she has gotten at least 95% improvement following this injection and that it is continuing to provide relief. She does state that her pain is a 2 out of 10 and really only has pain when she forgets and bends over doing certain activities. Patient states that she will occasionally still use an Aleve or Tylenol and it does take the issue away. She is currently managed with gabapentin 300 mg twice a day from Dr. Haynes's office. Her Ravinder is [id number]. Its been reviewed and appropriate. Review of Systems: General: No recent weight changes, no fever, no sleep disturbances Respiratory: No cough, no shortness of air, no recurring pulmonary infections Cardiovascular/peripheral vascular: No chest pain, no palpitations, no edema, no shortness of breath Gastrointestinal: No new onset incontinence, normal bowel movements reported Genitourinary: No new onset incontinence Musculoskeletal: Low back pain, buttocks pain Psychiatric: [Normal mood/affect] Neurological: [Denies weakness in extremities], [denies balance issues] Objective:: Physical Exam: General: Alert and oriented x3, no acute distress, pleasant and cooperative Lungs: Respirations even and unlabored, symmetrical chest expansion Eyes: PERRL Musculoskeletal: Flexion and extension of lumbar [spine] somewhat guarded secondary to pain, [antalgic gait noted] Neurological: Speech clear, no gross sensory deficit Assessment:: Degenerative disc disease of lumbar spine with lumbar radiculopathy symptoms, right piriformis syndrome, right sacroiliitis, low back pain Plan:: Patient has had significant relief following her piriformis injection and does not require any additional injective therapy. Patient will return to clinic in 1 month for reevaluation of symptoms. Patient has been instructed to contact the clinic with any concerns before the next appointment. Dr. Lynn has reviewed this note and agrees with this plan of care. This note was dictated using voice recognition software and make contain errors or omissions. [facility] Disclaimer: The information contained in this section may have been updated after the patient was seen, as this information can be updated by other users. Medical History Diabetes HLD (hyperlipidemia) HTN (hypertension) Neuropathy Surgical History H/O: hysterectomy Family History Other Cancer Diabetes Social History Smoking Status: Smoker, status unknown alcohol intake: never current occupational status: retired Travel in the last 8 weeks: None household members: family housing: house caffeine: No
[2023-04-29 09:42] VITALS: BP 119/68; PULSE 73; RESP 18; O2SAT 97; BMI 25.5
== END ==
PROVIDERS: Visit Provider Nurse Practitioner Family
DX: M51.16 Intervertebral disc disorders with radiculopathy, lumbar region (principal); G57.01 Lesion of sciatic nerve, right lower limb; M46.1 Sacroiliitis, not elsewhere classified; M54.50 Low back pain, unspecified
CPT/HCPCS: 99212; G0463

== ENCOUNTER → 2023-05-24 09:43 | Outpatient (POV) | payer MEDICARE, BC, SELFPAY ==
[2023-05-24 09:49] VITALS: BP 163/75; PULSE 71; RESP 20; BMI 25.6
--- NOTE | 2023-05-24 09:49 | A.OFFVIS_ITS ---
[facility] Pain Management SOAP Note Subjective:: Patient is a pleasant 88-year-old female who presents today for 1 month follow- up. We are currently treating the patient for degenerative disc disease of lumbar spine with lumbar radiculopathy symptoms, right piriformis syndrome, right sacroiliitis, low back pain. Today she rates her pain a 0 out of 10. Patient states she continues to have significant pain relief following her right piriformis injection that was done back in the middle of April. Patient denies any new trauma or injury. She is currently managed with gabapentin 300 mg twice a day from Dr. Haynes's office. Patient denies any side effects from this medication. Her Ravinder is [phone]. Its been reviewed and appropriate. Review of Systems: General: No recent weight changes, no fever, no sleep disturbances Respiratory: No cough, no shortness of air, no recurring pulmonary infections Cardiovascular/peripheral vascular: No chest pain, no palpitations, no edema, no shortness of breath Gastrointestinal: No new onset incontinence, normal bowel movements reported Genitourinary: No new onset incontinence Musculoskeletal: Low back pain Psychiatric: [Normal mood/affect] Neurological: [Denies weakness in extremities], [denies balance issues] Objective:: Physical Exam: General: Alert and oriented x3, no acute distress, pleasant and cooperative Lungs: Respirations even and unlabored, symmetrical chest expansion Eyes: PERRL Musculoskeletal: Flexion and extension of lumbar [spine] somewhat guarded secondary to pain, [antalgic gait noted] Neurological: Speech clear, no gross sensory deficit Assessment:: Degenerative disc disease of lumbar spine with lumbar radiculopathy symptoms, right piriformis syndrome, right sacroiliitis, low back pain Plan:: Patient continues to have significant improvement following her right piriformis injection and does not require any additional injective therapy at this time. Patient will return to clinic in 3 months for reevaluation of symptoms and plan of care. Patient has been instructed to contact the clinic with any concerns before the next appointment. Dr. Lynn has reviewed this note and agrees with this plan of care. This note was dictated using voice recognition software and make contain errors or omissions. [facility] Disclaimer: The information contained in this section may have been updated after the patient was seen, as this information can be updated by other users. Medical History Diabetes HLD (hyperlipidemia) HTN (hypertension) Neuropathy Surgical History H/O: hysterectomy Family History Other Cancer Diabetes Social History Smoking Status: Smoker, status unknown alcohol intake: never current occupational status: other Travel in the last 8 weeks: None household members: family housing: house caffeine: No
== END ==
PROVIDERS: PCP Family Medicine; Visit Provider Nurse Practitioner Family
DX: M51.16 Intervertebral disc disorders with radiculopathy, lumbar region (principal); G57.01 Lesion of sciatic nerve, right lower limb; M46.1 Sacroiliitis, not elsewhere classified; M54.50 Low back pain, unspecified
CPT/HCPCS: 99212; G0463

== ENCOUNTER → 2023-08-23 09:07 | Outpatient (POV) | payer MEDICARE, BC, SELFPAY ==
[2023-08-23 10:32] VITALS: BP 171/81; PULSE 67; RESP 18; O2SAT 96; BMI 25.2
--- NOTE | 2023-09-10 12:21 | EXP.PAIN.SOA ---
[facility] Pain Management SOAP Note Subjective:: This patient is a very pleasant 88-year-old female that comes to our clinic today for follow-up visit. We have been treating the patient for chronic low back pain as well as bilateral hip and leg radicular symptoms secondary to degenerative disc disease lumbar spine multiple levels. Bilateral sacroiliitis. She rates her pain today 2/10. Patient is currently being managed with gabapentin 300 mg 1 p.o. twice daily from her PCP. Patient denies any side effects from the medication. Patient reports medication does help especially at night with sleep. Patient's Ravinder and UDS have been appropriate. Objective:: Patient is awake alert [place] x3. In no acute distress. Flexion-extension cervical lumbar spine guarded secondary to pain. Deep tendon reflexes upper and lower extremities normal. Motor strength upper lower extremities normal. There is no gross sensory deficit. Gait is normal. Assessment:: Degenerative disc lumbar spine multilevels. Lumbar radiculopathy. Right piriformis syndrome. Right sacroiliitis. Plan:: Patient will return to see us in 2 months. [facility] Disclaimer: The information contained in this section may have been updated after the patient was seen, as this information can be updated by other users. Medical History Diabetes HLD (hyperlipidemia) HTN (hypertension) Neuropathy Surgical History H/O: hysterectomy Family History Other Cancer Diabetes Social History Smoking Status: Smoker, status unknown alcohol intake: never substance use type: denies use current occupational status: retired Travel in the last 8 weeks: None household members: family housing: house caffeine: No
== END ==
PROVIDERS: PCP Family Medicine; Visit Provider Nurse Anesthetist, Certified Registered
DX: M51.16 Intervertebral disc disorders with radiculopathy, lumbar region (principal); G57.01 Lesion of sciatic nerve, right lower limb; M46.1 Sacroiliitis, not elsewhere classified
CPT/HCPCS: 99212; G0463

== ENCOUNTER → 2023-08-31 10:43 | Outpatient (POV) | payer MEDICARE, BC, SELFPAY | PROVIDERS: Visit Provider Dermatology | DX: Z00.00 Encounter for general adult medical examination without abnormal findings (principal) ==

== ENCOUNTER 2023-11-08 09:53 | Outpatient (CLI) | payer MEDICARE, BC, SELFPAY ==
--- NOTE | 2023-11-08 09:57 | MM_ITS ---
PROCEDURE INFORMATION: Exam: MG Bilateral Screening 3D Mammography Exam date and time: 11/08/2023 9:52 AM Age: 88 years old Clinical indication: Screening examination. Her maternal aunt had breast cancer. TECHNIQUE: Imaging protocol: Bilateral Screening tomosynthesis and 2D mammography including computer-aided detection (CAD) when performed. COMPARISON: 1. MG MM DIG SCREENING MAMM BI W/CAD 10/29/2022 7:55 AM 2. MG MM DIG SCREENING MAMM BI W/CAD 10/17/2021 2:57 PM 3. MG MM DIG SCREENING MAMM BI W/CAD 10/10/2020 8:55 AM 4. MG MM DIG SCREENING MAMM BI W/CAD 10/06/2019 9:06 AM FINDINGS: MAMMOGRAPHY: Breast composition: There are scattered areas of fibroglandular density. Mass: No suspicious mass. Architectural distortion: None. Calcifications: No suspicious calcifications. Asymmetric density: None. Skin thickening: None. Axillary adenopathy: None. IMPRESSION: No mammographic evidence of malignancy. Annual screening is recommended unless otherwise clinically indicated. ASSESSMENT: BI-RADS Category 1: Negative
== END 2023-11-08 23:59 ==
LOC: RAD 09:53
PROVIDERS: PCP Family Medicine; Visit Provider Family Medicine
DX: Z12.31 Encounter for screening mammogram for malignant neoplasm of breast (principal)
CPT/HCPCS: 77063; 77067

== ENCOUNTER 2024-10-03 14:50 | Outpatient (POV) | payer MEDICARE, BC, SELFPAY | END 2024-10-03 23:59 | disposition home or self-care (01) | LOC: SC 10-04 07:08 | PROVIDERS: Visit Provider Dermatology | DX: Z00.00 Encounter for general adult medical examination without abnormal findings (principal) ==

== ENCOUNTER 2024-11-16 10:08 | Outpatient (CLI) | payer MEDICARE, BC, SELFPAY ==
--- NOTE | 2024-11-16 10:16 | MM_ITS ---
PROCEDURE INFORMATION: Exam: MG Bilateral Screening 3D Mammography Exam date and time: 11/16/2024 10:01 AM Age: 89 years old Clinical indication: Screening examination TECHNIQUE: Imaging protocol: Bilateral Screening tomosynthesis and 2D mammography including computer-aided detection (CAD) when performed. COMPARISON: 1. MG MM DIG SCREENING MAMM BI W/CAD 11/08/2023 9:52 AM 2. MG MM DIG SCREENING MAMM BI W/CAD 10/29/2022 7:55 AM FINDINGS: MAMMOGRAPHY: Breast composition: There are scattered areas of fibroglandular density. Mass: None. Architectural distortion: None. Calcifications: No suspicious calcifications. Asymmetric density: None. Skin thickening: None. Axillary adenopathy: None. IMPRESSION: No mammographic evidence of malignancy. Annual screening is recommended unless otherwise clinically indicated. ASSESSMENT: BI-RADS Category 1: Negative.
== END 2024-11-16 23:59 | disposition home or self-care (01) ==
LOC: RAD 10:10
PROVIDERS: PCP Family Medicine; Visit Provider Family Medicine
DX: Z12.31 Encounter for screening mammogram for malignant neoplasm of breast (principal)
CPT/HCPCS: 77063; 77067

== ENCOUNTER 2025-03-13 13:35 | Observation (INO) | payer MEDICARE, BC, SELFPAY ==
[2025-03-13] VITALS (10 sets, daily range): BP systolic 147–221; BP diastolic 75–111; PULSE 59–78; RESP 14–20; TEMP 36.4–37; O2SAT 93–98; BMI 27.4
--- NOTE | 2025-03-13 13:45 | ECG_ITS ---
APPROVED REPORT Exam: Resting ECG HR:71 bpm ECG Measurements Heart Rate 71 AXES KS 156 P 46 QRSd 117 QRS -1 QT 423 T 63 QTc 446 Conclusion Sinus rhythm No acute ischemic change Electronically signed by : MAYRA BURT, 03/15/2025 11:42:37
--- NOTE | 2025-03-13 13:48 | CT_ITS ---
PROCEDURE INFORMATION: Exam: CTA Neck With Contrast Exam date and time: 03/13/2025 1:59 PM Age: 89 years old Clinical indication: Stroke-like symptoms; Altered mental status/memory loss; RT upper extremity weakness; Additional info: Falliing to right, rue drift, head trauma TECHNIQUE: Imaging protocol: Computed tomographic angiography of the neck with contrast. Exam focused on the cervical segments of the vasculature. 3D rendering (Not supervised by radiologist): MIP and/or 3D reconstructed images were created by the technologist. Radiation optimization: All CT scans at this facility use at least one of these dose optimization techniques: automated exposure control; mA and/or kV adjustment per patient size (includes targeted exams where dose is matched to clinical indication); or iterative reconstruction. Contrast material: ISOVUE 370; Contrast volume: 80 ml; Contrast route: INTRAVENOUS (IV); COMPARISON: CT CERVICAL SPINE WO CON 03/13/2025 1:57 PM FINDINGS: Right common carotid artery: No stenosis. No dissection or occlusion. Right internal carotid artery: No stenosis of the extracranial segment. No dissection or occlusion. Right external carotid artery: No occlusion or stenosis of the origin. Left common carotid artery: No stenosis. No dissection or occlusion. Left internal carotid artery: No stenosis of the extracranial segment. No dissection or occlusion. Left external carotid artery: No occlusion or stenosis of the origin. Right vertebral artery: No stenosis. No dissection or occlusion. Left vertebral artery: No stenosis. No dissection or occlusion. Thyroid: Multiple thyroid masses bilaterally the largest of which is in the isthmus measuring 26 x 17 mm. Soft tissues: Normal. No significant soft tissue swelling. Bones/joints: No acute fracture. Lungs: Slight heterogeneously the lung sosa. IMPRESSION: 1. No stenosis or occlusion. 2. Thyroid masses. COMMENTS: Consistent with the [employer]'s Incidental Findings Committee white paper (J Am Inessa Radiol 2015): In patients aged 35 years and older with an incidental thyroid nodule equal to or greater than 1.[address], MRI or extrathyroidal US, further evaluation with dedicated thyroid US is recommended for patients with normal life expectancy and without comorbidities. For smaller nodules without suspicious features, no further evaluation or follow up is recommended. REFERENCES: NASCET CRITERIA. The degree of stenosis in the cervical segment of the internal carotid artery is based on NASCET criteria. Normal is no stenosis. Mild is less than 50% stenosis. Moderate is 50-69% stenosis. Severe is 70% to 99% stenosis. Total occlusion is no detectable patent lumen.
--- NOTE | 2025-03-13 13:48 | CT_ITS ---
PROCEDURE INFORMATION: Exam: CT Head Without Contrast Exam date and time: 03/13/2025 1:52 PM Age: 89 years old Clinical indication: Injury or trauma; Fall; Additional info: Falliing to right, rue drift, head trauma TECHNIQUE: Imaging protocol: Computed tomography of the head without contrast. Radiation optimization: All CT scans at this facility use at least one of these dose optimization techniques: automated exposure control; mA and/or kV adjustment per patient size (includes targeted exams where dose is matched to clinical indication); or iterative reconstruction. COMPARISON: No relevant prior studies available. FINDINGS: Brain: Moderate chronic microvascular ischemic changes are noted in the periventricular areas. Moderate diffuse cerebral atrophy is seen. Cerebral ventricles: No ventriculomegaly. Paranasal sinuses: Visualized sinuses are unremarkable. No fluid levels. Mastoid air cells: Visualized mastoid air cells are well aerated. Bones: Unremarkable. No acute fracture. Soft tissues: Soft tissue hematoma measuring 1 cm in the posterior parietal soft tissues. IMPRESSION: No acute findings. Moderate chronic microvascular ischemic changes with moderate diffuse cerebral atrophy. Soft tissue hematoma measuring 1 cm in the posterior parietal soft tissues.
--- NOTE | 2025-03-13 13:48 | CT_ITS ---
PROCEDURE INFORMATION: Exam: CT Cervical Spine Without Contrast Exam date and time: 03/13/2025 1:57 PM Age: 89 years old Clinical indication: Injury or trauma; Fall; Sprain or strain, cervical ligaments; Additional info: Falliing to right, rue drift, head trauma TECHNIQUE: Imaging protocol: Computed tomography of the cervical spine without contrast. Radiation optimization: All CT scans at this facility use at least one of these dose optimization techniques: automated exposure control; mA and/or kV adjustment per patient size (includes targeted exams where dose is matched to clinical indication); or iterative reconstruction. COMPARISON: CT HEAD/BRAIN WO CON 03/13/2025 1:52 PM FINDINGS: Bones/joints: Mild anterolisthesis of C7 over T1. Mild anterolisthesis of C2 over C3 and C3 over C4. C2-C3: No significant disc bulge or herniation. No severe spinal canal stenosis. Multilevel neural foraminal narrowing. Thyroid: Nodule measuring 8 mm in the right thyroid gland. Large nodule with coarse calcifications measuring 3 cm is seen in the left lobe of the thyroid gland. Lungs: Lung apices are normal. Soft tissues: Unremarkable. IMPRESSION: No acute findings. Mild anterolisthesis of C7 over T1. Mild anterolisthesis of C2 over C3 and C3 over C4. Nodule measuring 8 mm in the right thyroid gland. Large nodule with coarse calcifications measuring 3 cm is seen in the left lobe of the thyroid gland. Ultrasound is recommended for further evaluation. COMMENTS: Consistent with the [employer]'s Incidental Findings Committee white paper (J Am Inessa Radiol 2015): In patients aged 35 years and older with an incidental thyroid nodule equal to or greater than 1.[address], MRI or extrathyroidal US, further evaluation with dedicated thyroid US is recommended for patients with normal life expectancy and without comorbidities. For smaller nodules without suspicious features, no further evaluation or follow up is recommended.
--- NOTE | 2025-03-13 13:48 | CT_ITS ---
PROCEDURE INFORMATION: Exam: CTA Head With Contrast, Arteriography Exam date and time: 03/13/2025 1:59 PM Age: 89 years old Clinical indication: Stroke-like symptoms; Altered mental status/memory loss and headache and vomiting; RT upper extremity weakness; Additional info: Falliing to right, rue drift, head trauma TECHNIQUE: Imaging protocol: Computed tomographic angiography of the head with contrast. Exam focused on the arteries. 3D rendering (Not supervised by radiologist): MIP and/or 3D reconstructed images were created by the technologist. Radiation optimization: All CT scans at this facility use at least one of these dose optimization techniques: automated exposure control; mA and/or kV adjustment per patient size (includes targeted exams where dose is matched to clinical indication); or iterative reconstruction. Contrast material: ISOVUE 370; Contrast volume: 80 ml; Contrast route: INTRAVENOUS (IV); COMPARISON: CT HEAD/BRAIN WO CON 03/13/2025 1:52 PM FINDINGS: ANTERIOR CIRCULATION: Right internal carotid artery: Intracranial segment is patent with no significant stenosis. No aneurysm. Right middle cerebral artery: No occlusion or significant stenosis. No aneurysm. Right anterior cerebral artery: No occlusion or significant stenosis. No aneurysm. Left internal carotid artery: Intracranial segment is patent with no significant stenosis. No aneurysm. Left middle cerebral artery: No occlusion or significant stenosis. No aneurysm. Left anterior cerebral artery: No occlusion or significant stenosis. No aneurysm. POSTERIOR CIRCULATION: Right vertebral artery: No occlusion or significant stenosis. No aneurysm. Left vertebral artery: No occlusion or significant stenosis. No aneurysm. Basilar artery: No occlusion or significant stenosis. No aneurysm. Right posterior cerebral artery: No occlusion or significant stenosis. No aneurysm. Left posterior cerebral artery: No occlusion or significant stenosis. No aneurysm. Brain: Please see the head CT. Cerebral ventricles: No ventriculomegaly. Bones/joints: Unremarkable. No acute fracture. Soft tissues: Posterior scalp hematoma. Other findings: Thin section images are in the CT angiography head folder. IMPRESSION: No large vessel stenosis or occlusion.
--- NOTE | 2025-03-13 13:48 | XR_ITS ---
PROCEDURE INFORMATION: Exam: XR Chest Exam date and time: 03/13/2025 2:32 PM Age: 89 years old Clinical indication: Injury or trauma; Fall; Blunt trauma (contusions or hematomas); Additional info: Fall, stroke symptoms TECHNIQUE: Imaging protocol: Radiologic exam of the chest. Views: 1 view. COMPARISON: CT ANGIO NECK 03/13/2025 1:59 PM FINDINGS: Lungs: Unremarkable. No consolidation. Pleural spaces: Unremarkable. No pleural effusion. No pneumothorax. Heart/Mediastinum: Unremarkable. No cardiomegaly. Bones/joints: Unremarkable. IMPRESSION: No acute findings.
--- NOTE | 2025-03-13 13:51 | PC.NURSE ---
Patients FSBS is 223.
--- NOTE | 2025-03-13 13:53 | HMH.EDGENADL ---
Discharge Plan Disposition Patient Disposition: Home, Self-Care Chief Complaint: Fall Prescriptions Prescriptions: No Action furosemide 40 MG tablet 40 mg PO DAILY glipizide 5 MG tablet extended release 24hr 5 mg PO DAILY potassium chloride 20 MEQ tablet 1 tab PO DAILY simvastatin 20 MG tablet 20 mg PO DAILY metformin 1,000 MG tablet 1 tab PO BID lisinopril 10 MG tablet 10 mg PO DAILY Patient Comments: take 1 tablet by mouth once daily gabapentin 300 MG capsule 300 mg PO BID aspirin 81 MG tablet,chewable 81 mg PO DAILY hydrochlorothiazide 25 MG tablet 25 mg PO DAILY Referrals Follow up/Referrals: Provider,Referral, MD [Referring] - See instructions Clinical Impressions Clinical Impression: Hematoma of occipital region of scalp, Concussion Fall Qualifiers: Encounter type: initial encounter Qualified Code(s): W19.XXXA - Unspecified fall, initial encounter Print Language Print Language: Albanian Discharge ED Provider: Farhad Jones General Adult HPI General Chief complaint: Fall Stated complaint: A0 fall hit back of head nausea confussion Time Seen by Provider: 03/13/25 13:40 History of Present Illness HPI narrative: Please note that above description of symptoms, in this electronic medical record under categorization of recalled from ER triage doctor by RN are reflective of an initial nursing assessment, however, is not reflective of my full history and physical exam that was personally taken and clarified. Consequentially, this preceding description of symptoms, which may include the patient's categorized chief complaint in the EMR, do not reflect my personal clinical impression, and the ultimate description of history of present illness and patient stated complaints should be deferred to this section of the note. Unless stated otherwise or congruent with this section of the note, additional signs, symptoms, or incongruence should be interpreted as inaccurate with my clinical impression. Related Data Home Medications ?Medication ?Instructions ?Recorded ?Confirmed aspirin 81 mg chewable tablet 81 mg PO DAILY thinner 12/05/18 08/23/23 furosemide 40 mg tablet 40 mg PO DAILY Fluid 12/05/18 08/23/23 gabapentin 300 mg capsule 300 mg PO BID neuropathy 12/05/18 08/23/23 glipizide 5 mg tablet, extended 5 mg PO DAILY diabtes 12/05/18 08/23/23 release 24 hr hydrochlorothiazide 25 mg tablet 25 mg PO DAILY blood pressure 12/05/18 08/23/23 lisinopril 10 mg tablet 10 mg PO DAILY blood pressure 12/05/18 08/23/23 metformin 1,000 mg tablet 1 tab PO BID Diabetes 12/05/18 08/23/23 potassium chloride 20 mEq 1 tab PO DAILY Supplement 12/05/18 08/23/23 tablet,extended release(part/cryst) simvastatin 20 mg tablet 20 mg PO DAILY Cholesterol 12/05/18 08/23/23 Allergies Allergy/AdvReac Type Severity Reaction Status Date / Time No Known Allergies Allergy Verified 04/13/23 08:24 [facility] Disclaimer: The information contained in this section may have been updated after the patient was seen, as this information can be updated by other users. Medical History (Updated 03/13/25 @ 15:04 by Farhad Jones MD) HLD (hyperlipidemia) HTN (hypertension) Diabetes Neuropathy Surgical History H/O: hysterectomy Family History Other Cancer Diabetes Social History (Updated 09/10/23 @ 12:23 by Edu Gupta CRNA) Smoking Status: Never smoker alcohol intake: never substance use type: denies use current occupational status: retired Travel in the last 8 weeks?: None household members: family housing: house caffeine: No Have you lived/traveled outside [place] in past 30 days?: No Contact w/someone who lives/traveled outside US past 30 days?: No Exposure to someone with infectious disease in past 14 days?: No Do you have a fever (greater than 100.4 F or 38 C)?: No Have you tested positive for COVID-19?: No Exposed to someone with COVID-19 in past 14 days?: No Do you have a sore throat?: No Do you have a cough?: No Do you have any weakness?: No Do you have any diarrhea?: No Are you experiencing any unusual bleeding?: No Do you have any muscle aches/pain?: No Do you have any abdominal pain?: No Are you experiencing loss of taste or smell?: No Other Medical History Have you received the Flu Vaccine for this season: Yes Have you received the Pneumonia Vaccine: Yes ROS Obtained: Yes All systems reviewed & no additional complaints except as documented Physical Exam General General appearance: alert Head Head exam: normocephalic and other (Large hematoma on occiput) Eye Eye exam: Present normal appearance, PERRL and EOMI Neck Neck exam: Present normal inspection, full ROM and trachea midline Respiratory Respiratory exam: Absent respiratory distress, wheezes, stridor, accessory muscle use or prolonged expiratory phase Cardiovascular Cardiovascular exam: Present regular rate, normal rhythm and other (Pulses equal symmetric in upper and lower extremities) Abdominal Exam Abdominal exam: Present soft; Absent distention, tenderness or pulsatile mass Extremities Exam Extremities exam: Absent edema Neurological Exam Neurological exam: Present alert, oriented X3 and CN II-XII intact; Absent motor sensory deficit Skin Skin exam: Present warm and dry; Absent diaphoresis or erythema Medical Decision Making Medical Records Medical records reviewed: Yes I reviewed the patient's medical records. Screening: Per USPSTF and CDC recommendations, given the prevalence of disease in our region, it is our hospital?s policy to screen for HIV and viral Hepatitis for all patients aged 18 and over and those with ongoing risk factors. Ravinder Inquiry Pt receiving controlled substance: No Ravinder was queried for this patient: No Vital Signs: 03/13/25 13:55 03/13/25 14:23 03/13/25 14:31 Temperature 97.9 F Temperature Source Oral Pulse Rate 62 59 L Pulse Rate [Left Radial] 68 Respiratory Rate 19 14 Blood Pressure 192/83 H 192/75 H Blood Pressure [Right Arm] 221/111 H Blood Pressure Mean [Right Arm] 147 02 Sat by Pulse Oximetry 95 98 97 Oxygen Delivery Method Room Air Nasal Cannula Nasal Cannula Oxygen Flow Rate (LPM) 3 3 Lab Data Lab Results 03/13/25 13:50: WBC 6.5, RBC 4.24, Hgb 12.5, Hct 37.1, MCV 87.5, MCH 29.5, MCHC 33.7, RDW 13.0, Plt Count 240, MPV 9.4, Neut % (Auto) 44.7, Lymph % (Auto) 45.6, [place] % (Auto) 6.3, Eos % (Auto) 2.6, Baso % (Auto) 0.6, Neut # (Auto) 2.9, Lymph # (Auto) 3.0, [place] # (Auto) 0.4, Eos # (Auto) 0.2, Baso # (Auto) 0.0, PT 10.9, INR 0.97, APTT 21.1 L, Sodium 135 L, Potassium 2.9 L*, Chloride 100, Carbon Dioxide 27, Anion Gap 10.9, BUN 11, Creatinine 0.70, Estimated Creat Clear 46, Estimated GFR 79, Est GFR ( Amer) 96, Glucose 264 H, Calcium 8.8, Total Bilirubin 0.2, AST 28, ALT 22, Alkaline Phosphatase 97, Troponin I < 0.01, Total Protein 7.3, Albumin 4.3, Globulin 3.0, Albumin/Globulin Ratio 1.4 03/13/25 13:50 03/13/25 13:50 Orders (Tests/Meds): ED MEDICATIONS Generic Name Dose Route Start Last Admin Trade Name Freq PRN Reason Stop Dose Admin Potassium Chloride/Water 100 mls @ 50 mls/hr 03/13/25 14:18 03/13/25 14:53 Potassium Chloride 20meq/100ml Ivpb IV 03/13/25 20:17 50 mls/hr Q2H ALIYA Administration Sodium Chloride 1,000 mls @ 999 mls/hr 03/13/25 14:48 03/13/25 14:53 Sod Chlor 0.9% 1000ml Bag IV 03/13/25 15:48 999 mls/hr .Q1H1M ONE Administration Discontinued Medications Generic Name Dose Route Start Last Admin Trade Name Freq PRN Reason Stop Dose Admin Acetaminophen 1,000 mg 03/13/25 14:19 03/13/25 14:23 Acetaminophen 1,000mg/100ml Vial IV 03/13/25 14:20 1,000 mg ONCE ONE Administration Droperidol 2.5 mg 03/13/25 14:42 03/13/25 14:53 Droperidol 5mg/2ml Vial IV 03/13/25 14:43 2.5 mg ONCE ONE Administration Iopamidol 80 ml 03/13/25 14:05 03/13/25 14:06 Iopamidol-370 (76%);100ml Bottle IV 03/13/25 14:06 80 ml ONCE ONE Administration Ondansetron HCl 4 mg 03/13/25 13:47 03/13/25 13:59 Ondansetron 4mg/2ml Vial IV 03/13/25 13:48 4 mg ONCE ONE Administration Promethazine HCl 12.5 mg 03/13/25 14:06 03/13/25 14:12 Promethazine Hcl 25mg/Ml 1ml Vial IV 03/13/25 14:07 12.5 mg ONCE ONE Administration Sodium Chloride 50 ml 03/13/25 14:05 03/13/25 14:06 0.9 % Sodium Chloride 50 Ml Vial IV 03/13/25 14:06 50 ml ONCE ONE Administration Sodium Chloride 10 ml 03/13/25 14:05 03/13/25 14:06 Sodium Chloride 0.9% 10ml Syr (Rad Only) IV 03/13/25 14:06 10 ml ONCE ONE Administration Sodium Chloride 25 ml 03/13/25 14:06 03/13/25 14:12 Sodium Chloride 0.9% 25ml Bag IV 03/13/25 14:07 25 ml ONCE ONE Administration ORDERS Category Date Time Status CT angio head Stat Cat Scan 03/13/25 13:[address] angio neck Stat Cat Scan 03/13/25 13:[address] cervical spine wo con Stat Cat Scan 03/13/25 13:[address] head/brain wo con Stat Cat Scan 03/13/25 13:48 Completed XR chest portable Stat Exams 03/13/25 13:48 Taken Complete Blood Count Auto Diff Stat Lab 03/13/25 13:50 Completed Comprehensive Metabolic Panel Stat Lab 03/13/25 13:50 Completed HIV Combo Stat Lab 03/13/25 13:50 Received Hepatitis C Ab Qual. W/ RFX Stat Lab 03/13/25 13:50 Received PT INR [Prothrombin Time INR] Stat Lab 03/13/25 13:50 Completed PTT [Activated Partial Thrombo Time] Stat Lab 03/13/25 13:50 Completed Troponin I Q3H Lab 03/13/25 17:00 Ordered Troponin I Q3H Lab 03/13/25 20:00 Ordered Troponin I Stat Lab 03/13/25 13:50 Completed HEART Score History (anamnesis): Slightly suspicious ECG: Normal Age: >65 years Risk factors: 3 or more risk factors Troponin: </= normal limit HEART Score: 4 Medical Decision Narrative: 89-year-old female presenting with fall. Family was with her when she had this fall. They state that she started leaning toward her right, falling toward her right and tried to catch herself on the dresser. Unable to support her self, so she fell backward and hit the back of her head. Loss of consciousness. She was unconscious for just a few seconds, reportedly. Patient complained of headache, was brought to the emergency department by family shortly thereafter. Patient not on any anticoagulation. Patient does not remember the fall, states that her head hurts, but has no other complaints including neck pain, back pain, vision changes. On arrival, she is vomiting, nonbloody, nonbilious emesis. History was obtained via conversation with patient. On arrival, patient hemodynamically stable, alert, oriented to person and place, situation appropriate, GCS 15, moving all extremities spontaneously, pupils equal and reactive to light. Full physical exam performed and significant for large hematoma on occiput. She does have right upper extremity drift without hitting bed, right lower extremity weakness as compared to the left. No evidence of facial droop or cranial nerve deficits. Lungs are clear, cardiac exam without murmurs gallops or rubs. Differential includes ischemic stroke, hemorrhagic stroke, subarachnoid hemorrhage, concussion, neurologic abnormality, endocrinologic abnormality, metabolic abnormality, ACS, VT, among others Patient placed on continuous cardiac monitoring and continuous pulse ox with initial blood pressure 221/111, heart rate 59, saturation 97% on room air. Patient was given Zofran for symptomatic management and correction of underlying abnormalities. Workup independently interpreted and significant for nonactionable CBC. Chemistry with hypokalemia 2.9, this was repleted IV. On independent interpretation of imaging, no acute intracranial hemorrhage. No large vessel occlusion on CTA's. See radiology read for full review of final results. Heart score 4. On reevaluation, patient cannot stop vomiting. Given 2.5 droperidol as well as IV potassium. I talked patient's primary care provider for admission for concussion and intractable nausea and vomiting. He stated he would need to call back. Called back and agreeable to admission. Because patient high risk for clinical decompensation, deemed appropriate for inpatient admission. Results were relayed to patient who voiced understanding and patient was agreeable to inpatient admission and management. Patient was admitted to the hospital for further definitive management. Maxillofacial Prosthodontist disclaimer Much of this encounter note is an electronic facing baster jumpbasting spoken language to printed text. Electronic facing baster jumpbasting of the spoken language may permit errors. Although I have reviewed the note, some errors may still exist. Critical Care Critical Care Time Critical Care Time: No
[2025-03-13 13:58] LABS: Basophils % 0.6 % (0.1-2.0); Eosinophils # 0.2 Kmm3 (0.0-0.4); Eosinophils % 2.6 % (0.1-12.0); Hematocrit 37.1 % (37.0-47.0); Hemoglobin 12.5 g/dL (12.2-16.2); Immature Granulocytes # 0.01 10^3uL; Immature Granulocytes % 0.2 %; Lymphocytes % 45.6 % (10-50); Mean Corpuscular HGB Conc 33.7 g/dL (31.8-35.4); Mean Corpuscular Hemoglobin 29.5 pg (27.0-31.2); Mean Corpuscular Volume 87.5 fl (81-99); Mean Platelet Volume 9.4 fl (7.4-10.4); Monocytes # 0.4 K/mm3 (0.1-1.0); Monocytes % 6.3 % (1.7-9.3); Neutrophils # 2.9 K/mm3 (1.8-7.8); Neutrophils % 44.7 % (37.0-80.0); Nucleated Red Blood Cells # 0 10^3/uL; Nucleated Red Blood Cells % 0 %; Platelet Count 240 K/mm3 (142-424); Red Blood Count 4.24 M/mm3 (4.20-5.40); Red Cell Distribution Width-SD 41.6 fL; White Blood Count 6.5 K/mm3 (4.8-10.8)
[2025-03-13] MEDS: ONDANSETRON 4MG/2ML VIAL 4 MG IV (13:59)
[2025-03-13 14:06] LABS: Albumin Level 4.3 g/dl (3.5-5.0); Chloride 100 mmol/L (98-107); Sodium 135 mmol/L (136-145)
[2025-03-13] MEDS: 0.9 % SODIUM CHLORIDE 50 ML VIAL IV (14:06)
[2025-03-13] MEDS: SODIUM CHLORIDE 0.9% 10ML SYR (RAD ONLY) 10 ML IV (14:06)
[2025-03-13] MEDS: IOPAMIDOL-370 (76%);100ML BOTTLE 80 ML IV (14:06)
[2025-03-13 14:09] LABS: Alanine Aminotransferase 22 U/L (12-78); Albumin/Globulin Ratio 1.4 (1.1-1.8); Alkaline Phosphatase 97 U/L (38-126); Anion Gap 10.9 mEq/L (5-15); Aspartate Amino Transferase 28 U/L (14-36); Bilirubin,Total 0.2 mg/dl (0.2-1.3); Blood Urea Nitrogen 11 mg/dl (7-17); Calcium 8.8 mg/dl (8.4-10.2); Carbon Dioxide 27 mmol/L (22.0-30.0); Creatinine Clearance Estimated 46 mL/min (50-200); Estimated Glomerular Filt Rate 79 ml/min (>60); GFR (African American) 96 ML/MIN (>60); Glucose 264 mg/dl (74-100); Total Protein,Serum 7.3 g/dl (6.3-8.2)
[2025-03-13 14:12] LABS: Potassium 2.9 mmoL/L (3.5-5.1)
[2025-03-13] MEDS: SODIUM CHLORIDE 0.9% 25ML BAG 25 ML IV (14:12)
[2025-03-13] MEDS: PROMETHAZINE HCL 25MG/ML 1ML VIAL 12.5 MG IV (14:12)
[2025-03-13 14:22] LABS: Troponin I < 0.01 ng/ml (0.00-0.034)
[2025-03-13 14:23] LABS: Activated Partial Thrombo Time 21.1 seconds (22.8-30.6); INR 0.97 (0.9-1.1); Prothrombin Time 10.9 seconds (10.1-12.5)
[2025-03-13] MEDS: ACETAMINOPHEN 1,000MG/100ML VIAL 1000 MG IV (14:23)
--- NOTE | 2025-03-13 14:25 | PC.NURSE ---
family at bedside
[2025-03-13] MEDS: KCl 20mEq/100ml 100 ML 50 MEQ IV (14:53)
[2025-03-13] MEDS: droPERidol 5MG/2ML VIAL 2.5 MG IV (14:53)
[2025-03-13] MEDS: 0.9 % SODIUM CHLORIDE 1000ML 1,000 ML 999 ML IV (14:53)
--- NOTE | 2025-03-13 14:54 | PC.NURSE ---
on the phone with AMY
[2025-03-13 15:09] LABS: HIV Combo NEGATIVE (Negative)
--- NOTE | 2025-03-13 15:12 | PC.NURSE ---
spoke with hospitality housekeeper for bed placement
[2025-03-13 15:17] LABS: Hepatitis C Ab Qual. W/ RFX NEGATIVE (Negative)
--- NOTE | 2025-03-13 15:38 | PC.NURSE ---
report called to jared on second floor
[2025-03-13] MEDS: LORazepam 2MG/ML VIAL 1 MG IV (16:15)
--- NOTE | 2025-03-13 16:37 | EXP.HP ---
History of Present Illness *Admission Date: 03/13/25 *Reason for visit:: fell and hit her head; vomiting *History of present illness: Medical Decision Narrative: 89-year-old female presenting with fall. Family was with her when she had this fall. They state that she started leaning toward her right, falling toward her right and tried to catch herself on the dresser. Unable to support her self, so she fell backward and hit the back of her head. Loss of consciousness. She was unconscious for just a few seconds, reportedly. Patient complained of headache, was brought to the emergency department by family shortly thereafter. Patient not on any anticoagulation. Patient does not remember the fall, states that her head hurts, but has no other complaints including neck pain, back pain, vision changes. On arrival, she is vomiting, nonbloody, nonbilious emesis. History was obtained via conversation with patient. On arrival, patient hemodynamically stable, alert, oriented to person and place, situation appropriate, GCS 15, moving all extremities spontaneously, pupils equal and reactive to light. Full physical exam performed and significant for large hematoma on occiput. She does have right upper extremity drift without hitting bed, right lower extremity weakness as compared to the left. No evidence of facial droop or cranial nerve deficits. Lungs are clear, cardiac exam without murmurs gallops or rubs. Differential includes ischemic stroke, hemorrhagic stroke, subarachnoid hemorrhage, concussion, neurologic abnormality, endocrinologic abnormality, metabolic abnormality, ACS, IA, among others Patient placed on continuous cardiac monitoring and continuous pulse ox with initial blood pressure 221/111, heart rate 59, saturation 97% on room air. Patient was given Zofran for symptomatic management and correction of underlying abnormalities. Workup independently interpreted and significant for nonactionable CBC. Chemistry with hypokalemia 2.9, this was repleted IV. On independent interpretation of imaging, no acute intracranial hemorrhage. No large vessel occlusion on CTA's. See radiology read for full review of final results. Heart score 4. On reevaluation, patient cannot stop vomiting. Given 2.5 droperidol as well as IV potassium. I talked patient's primary care provider for admission for concussion and intractable nausea and vomiting. He stated he would need to call back. Called back and agreeable to admission. Because patient high risk for clinical decompensation, deemed appropriate for inpatient admission. Results were relayed to patient who voiced understanding and patient was agreeable to inpatient admission and management. Patient was admitted to the hospital for further definitive management. The above as per [facility] ER note. Ms. Vanessa is an 85-year-old female with a history of COPD, back pain, insomnia, GERD, who presented to [facility] emergency room after a fall. Her daughter is present and gives the history. Her witnessed the fall and states she experienced dizziness and then fell landing flat on her back hitting her head. The above is the ER note after arrival. Initially patient was alert and then she became nauseated and was vomiting. She was given IV Zofran, promethazine, and droperidol for her nausea and vomiting in the ER. She became very restless and confused and was given 2 doses of Ativan as well. After arrival to the [facility] floor she continued to be confused and insisted on being up to the bedside commode because she felt like she needed to void. Nursing did assist her. She then began to relax and at present is lying and sleeping in the bed. Information is obtained from the daughter who states she had been doing very well. She is very active. She had been gardening. She had a democrat and went to congregational on Wednesday. She was cleaning the bathroom today when she became dizzy. She has been eating and drinking without issues. She has had no fever or upper respiratory issues. [facility] Disclaimer: The information contained in this section may have been updated after the patient was seen, as this information can be updated by other users. Medical History (Updated 03/13/25 @ 17:23 by Guerda Sosa APRN) HLD (hyperlipidemia) HTN (hypertension) Diabetes Neuropathy Surgical History H/O: hysterectomy Family History Diabetes Cancer Social History (Updated 03/13/25 @ 17:07 by Lia Batista RN) Smoking Status: Never smoker alcohol intake: never substance use type: denies use current occupational status: retired Travel in the last 8 weeks?: None household members: family housing: house caffeine: No Have you lived/traveled outside US in past 30 days?: No Contact w/someone who lives/traveled outside US past 30 days?: No Exposure to someone with infectious disease in past 14 days?: No Do you have a fever (greater than 100.4 F or 38 C)?: No Have you tested positive for COVID-19?: No Exposed to someone with COVID-19 in past 14 days?: No Do you have a sore throat?: No Do you have a cough?: No Do you have any weakness?: No Do you have any diarrhea?: No Are you experiencing any unusual bleeding?: No Do you have any muscle aches/pain?: No Do you have any abdominal pain?: No Are you experiencing loss of taste or smell?: No Other Medical History Have you received the Flu Vaccine for this season: Yes Have you received the Pneumonia Vaccine: Yes Review of Systems Constitutional Constitutional: Denies fever(s), Denies frequent falls and Denies headache(s) Eyes Comments: Patient would not open her eyes for evaluation ENT Ears, Nose, Mouth, and Throat: Reports dizziness (She does have periodic dizzy spells) and Denies headache(s) Comments: No upper respiratory signs or symptoms *Cardiovascular Cardiovascular: Denies chest pain and Denies dyspnea *Respiratory Respiratory: Denies cough and Denies dyspnea *Gastrointestinal Gastrointestinal: Denies loose stools and Reports vomiting *Genitourinary Genitourinary: Denies difficulty voiding *Musculoskeletal Comments: She normally ambulates without difficulty *Neurologic Neurologic: Reports dizziness (She does have periodic dizzy spells), Denies frequent falls and Denies headache(s) Meds Home Medications and Allergies Home Medications ?Medication ?Instructions ?Recorded ?Confirmed ?Type aspirin 81 mg chewable tablet 81 mg PO DAILY thinner 12/05/18 03/13/25 History furosemide 40 mg tablet 40 mg PO DAILY Fluid 12/05/18 03/13/25 History gabapentin 300 mg capsule 300 mg PO BID neuropathy 12/05/18 03/13/25 History glipizide 5 mg tablet, extended 5 mg PO DAILY diabtes 12/05/18 03/13/25 History release 24 hr hydrochlorothiazide 25 mg tablet 25 mg PO DAILY blood pressure 12/05/18 03/13/25 History lisinopril 10 mg tablet 10 mg PO DAILY blood pressure 12/05/18 03/13/25 History metformin 1,000 mg tablet 1 tab PO BID Diabetes 12/05/18 03/13/25 History potassium chloride 20 mEq 1 tab PO DAILY Supplement 12/05/18 03/13/25 History tablet,extended release(part/cryst) simvastatin 20 mg tablet 20 mg PO DAILY Cholesterol 12/05/18 03/13/25 History calcium carbonate-vitamin D3 500 1 tab PO DAILY 03/13/25 03/13/25 History mg(1,250 mg)-600 unit chewable tablet cyanocobalamin (vitamin B-12) 500 500 mcg PO DAILY 03/13/25 03/13/25 History mcg tablet hydralazine 25 mg tablet 25 mg PO DAILY 03/13/25 03/13/25 History aksnidzcbeud-gfzqyyup-hsovma tablet 1 tab PO DAILY 03/13/25 03/13/25 History zinc 50 mg capsule 50 mg PO DAILY 03/13/25 03/13/25 History New Prescriptions to Start Prescriptions: Allergies Allergy/AdvReac Type Severity Reaction Status Date / Time No Known Allergies Allergy Verified 04/13/23 08:24 Exam Data for Last 24 hours Vital signs and Labs for Last 24 Hours: Temp Pulse Resp BP Pulse Ox O2 Del Method O2 Flow Rate 98.2 F 70 20 194/81 H 94 L Room Air 3 03/13/25 16:28 03/13/25 16:28 03/13/25 16:28 03/13/25 16:28 03/13/25 15:02 03/13/25 16:28 03/13/25 14:31 Laboratory Results - last 24 hr 03/13/25 13:50: WBC 6.5, RBC 4.24, Hgb 12.5, Hct 37.1, MCV 87.5, MCH 29.5, MCHC 33.7, RDW 13.0, Plt Count 240, MPV 9.4, Neut % (Auto) 44.7, Lymph % (Auto) 45.6, [place] % (Auto) 6.3, Eos % (Auto) 2.6, Baso % (Auto) 0.6, Neut # (Auto) 2.9, Lymph # (Auto) 3.0, [place] # (Auto) 0.4, Eos # (Auto) 0.2, Baso # (Auto) 0.0, PT 10.9, INR 0.97, APTT 21.1 L, Sodium 135 L, Potassium 2.9 L*, Chloride 100, Carbon Dioxide 27, Anion Gap 10.9, BUN 11, Creatinine 0.70, Estimated Creat Clear 46, Estimated GFR 79, Est GFR ( Amer) 96, Glucose 264 H, Calcium 8.8, Total Bilirubin 0.2, AST 28, ALT 22, Alkaline Phosphatase 97, Troponin I < 0.01, Total Protein 7.3, Albumin 4.3, Globulin 3.0, Albumin/Globulin Ratio 1.4, HCV Ab HANNA w/Rflx PCR Qn Negative, HIV Ag/Ab Combo Qual Negative I & O for Last 24 hours: Intake & Output 03/11/25 03/12/25 03/13/25 03/14/25 11:59 11:59 11:59 11:59 Weight 165 lb Constitutional Constitutional: no acute distress Comments: Nursing was able to assist patient in the bed and she is now relaxed and appears most comfortable and is sleeping. *Routine HEENT Exam Head: Present normocephalic; Absent atraumatic (Exercise hematoma on the back of her head.) Eye: Present other (Unable to get patient to open her eyes for evaluation) ENT: Present mucous membranes moist *Routine Neck Exam Neck: Absent carotid bruit, lymphadenopathy or thyromegaly *Routine Respiratory Exam Respiratory: Present CTA bilaterally (Anteriorly and posteriorly) *Routine Cardiovascular Exam Cardiovascular: Present RRR Comments: Monitor has shown sinus bradycardia *Routine Abdominal Exam Abdominal: Present soft and normoactive bowel sounds; Absent tenderness *Routine Rectal Exam Rectal:: deferred *Routine Genitalia Exam Genitalia:: deferred *Routine Extremities Exam Extremities: Present clubbing and full ROM; Absent edema *Routine Neurological Exam Neurological: Present altered mental status Assessment and Plan *Assessment and plan (1) Concussion: Status: Acute Category: Medical Code(s): S06.0XAA - Concussion with loss of consciousness status unknown, initial encounter (2) Hematoma of occipital region of scalp: Status: Acute Category: Medical Code(s): S00.03XA - Contusion of scalp, initial encounter (3) Spondylolisthesis at L5-S1 level: Status: Acute Category: Medical Code(s): M43.17 - Spondylolisthesis, lumbosacral region (4) Degenerative joint disease of sacroiliac joint: Status: Acute Category: Medical Code(s): M46.1 - Sacroiliitis, not elsewhere classified (5) Fall: Status: Acute Qualifiers: Encounter type: initial encounter Qualified Code(s): W19.XXXA - Unspecified fall, initial encounter Category: Medical Code(s): W19.XXXA - Unspecified fall, initial encounter (6) Hypokalemia: Status: Acute Category: Medical Code(s): E87.6 - Hypokalemia (7) Altered mental status: Status: Acute Category: Medical Code(s): R41.82 - Altered mental status, unspecified Plan Blood pressure is elevated will need to be monitored. Will restart meds when patient becomes coherent. Currently she is not vomiting. CTA of the neck showed no stenosis or occlusion. 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 CTA of the head revealed no large vessel stenosis or occlusion. head CT revealed no acute findings. CT of the cervical spine revealed no acute findings. To consider MRI. She was given IV potassium in the emergency room.
--- NOTE | 2025-03-13 17:19 | PC.NURSE ---
Ebonie beltran will be sitting with patient and will be placing pt on tele monitor.
--- NOTE | 2025-03-13 17:37 | PC.NURSE ---
Product Safety Head called and asked to page Dr. Fowler who they said was on calld.
[2025-03-13] MEDS: 0.45% NaCl w/20mEq KCL 1,000 ML 100 ML IV (17:53)
[2025-03-13 19:10] LABS: Chloride 98 mmol/L (98-107); Potassium 3.2 mmoL/L (3.5-5.1); Sodium 132 mmol/L (136-145)
[2025-03-13 19:13] LABS: Anion Gap 9.2 mEq/L (5-15); Blood Urea Nitrogen 10 mg/dl (7-17); Calcium 8.3 mg/dl (8.4-10.2); Carbon Dioxide 28 mmol/L (22.0-30.0); Creatinine Clearance Estimated 46 mL/min (50-200); Estimated Glomerular Filt Rate 94 ml/min (>60); GFR (African American) 114 ML/MIN (>60); Glucose 274 mg/dl (74-100)
[2025-03-13 19:28] LABS: Troponin I < 0.01 ng/ml (0.00-0.034)
[2025-03-13 22:58] LABS: Troponin I < 0.01 ng/ml (0.00-0.034)
[2025-03-14] VITALS: BP 150/72; PULSE 70; PULSE 72; RESP 18; TEMP 36.8; O2SAT 88
[2025-03-14 03:47] VITALS: BP 136/61; PULSE 67; RESP 18; TEMP 36.8; O2SAT 96
[2025-03-14 04:00] VITALS: PULSE 65; BMI 25.3
--- NOTE | 2025-03-14 06:26 | PC.NURSE ---
Patient has been sleeping most of the shift. She will respond minimally when spoken to. When patient is ask name, patient mumbles some words but unsure of what she is saying. Family remained at the bedside throughout the night. Patient did get up to the bedside commode. Hematoma in back of head. No bleeding noted. Patient will open eyes when ask to, reactive to light. Room air. Abdomen soft and nontender. Bed alarm on. Call light in reach.
[2025-03-14 06:48] LABS: Basophils % 0.4 % (0.1-2.0); Eosinophils % 0.1 % (0.1-12.0); Hematocrit 34.2 % (37.0-47.0); Hemoglobin 11.5 g/dL (12.2-16.2); Immature Granulocytes # 0.01 10^3uL; Immature Granulocytes % 0.1 %; Lymphocytes # 2.3 K/mm3 (0.7-4.5); Lymphocytes % 32.3 % (10-50); Mean Corpuscular HGB Conc 33.6 g/dL (31.8-35.4); Mean Corpuscular Hemoglobin 29.4 pg (27.0-31.2); Mean Corpuscular Volume 87.5 fl (81-99); Mean Platelet Volume 9.2 fl (7.4-10.4); Monocytes # 0.5 K/mm3 (0.1-1.0); Monocytes % 7.3 % (1.7-9.3); Neutrophils # 4.3 K/mm3 (1.8-7.8); Neutrophils % 59.8 % (37.0-80.0); Nucleated Red Blood Cells # 0 10^3/uL; Nucleated Red Blood Cells % 0 %; Platelet Count 207 K/mm3 (142-424); Red Blood Count 3.91 M/mm3 (4.20-5.40); Red Cell Distribution Width-SD 41.3 fL; White Blood Count 7.2 K/mm3 (4.8-10.8)
[2025-03-14 07:06] LABS: Anion Gap 5.5 mEq/L (5-15); Blood Urea Nitrogen 13 mg/dl (7-17); Calcium 8.3 mg/dl (8.4-10.2); Carbon Dioxide 30 mmol/L (22.0-30.0); Chloride 101 mmol/L (98-107); Creatinine Clearance Estimated 37 mL/min (50-200); Estimated Glomerular Filt Rate 79 ml/min (>60); GFR (African American) 96 ML/MIN (>60); Glucose 188 mg/dl (74-100); Potassium 3.5 mmoL/L (3.5-5.1); Sodium 133 mmol/L (136-145)
[2025-03-14 08:00] VITALS: BP 137/61; PULSE 60; PULSE 67; RESP 16; TEMP 36.7; O2SAT 92
--- NOTE | 2025-03-14 08:08 | P.PN_ITS ---
Subjective *Date: 03/14/25 *Time: 08:08 Interval history: Patient has a headache this am. Still with a little dizziness. She was able to sleep last night. Denies any other pain. Medical Exam Vital signs and Labs for Last 24 Hours: Vital Signs Temp Pulse Pulse Resp BP BP Pulse Ox 03/14/25 07:41 03/14/25 06:55 03/14/25 05:00 03/14/25 04:00 65 03/14/25 03:47 98.3 F 67 18 136/61 96 03/14/25 03:00 03/14/25 01:00 03/14/25 00:00 70 03/14/25 00:00 98.2 F 72 18 150/72 H 88 L 03/13/25 23:00 03/13/25 21:00 03/13/25 20:00 60 03/13/25 20:00 03/13/25 19:27 97.5 F L 68 17 147/82 H 93 L 03/13/25 17:55 03/13/25 16:28 98.2 F 70 20 194/81 H 03/13/25 16:00 98.6 F 78 20 194/81 H 93 L 03/13/25 15:47 14 194/81 H 03/13/25 15:42 03/13/25 15:31 17 195/94 H 03/13/25 15:30 03/13/25 15:02 66 16 180/84 H 94 L 03/13/25 14:31 59 L 14 192/75 H 97 03/13/25 14:23 62 192/83 H 98 03/13/25 13:55 97.9 F 68 19 221/111 H 95 O2 Del Method O2 Flow Rate 03/14/25 07:41 Room Air 03/14/25 06:55 Room Air 03/14/25 05:00 Room Air 03/14/25 04:00 03/14/25 03:47 Room Air 03/14/25 03:00 Room Air 03/14/25 01:00 Room Air 03/14/25 00:00 03/14/25 00:00 Room Air 03/13/25 23:00 Room Air 03/13/25 21:00 Room Air 03/13/25 20:00 03/13/25 20:00 Room Air 03/13/25 19:27 Room Air 03/13/25 17:55 Room Air 03/13/25 16:28 Room Air 03/13/25 16:00 Room Air 03/13/25 15:47 03/13/25 15:42 Room Air 03/13/25 15:31 03/13/25 15:30 Room Air 03/13/25 15:02 03/13/25 14:31 Nasal Cannula 3 03/13/25 14:23 Nasal Cannula 3 03/13/25 13:55 Room Air Intake and Output 03/13/25 03/14/25 03/14/25 19:59 03:59 11:59 Intake Total 253 / 253 Output Total 0 / 850 600 / 850 250 / 850 Balance 0 / -597 -600 / -597 3 / -597 Intake: Intake, Total IV Amount 253 / 253 0.45% NaCl w/20mEq KCL 1,000 ml 253 / 253 @ 75 mls/hr IV .[id number] [facility] Rx #:[id number] Output: Output, Urine Amount 0 / 850 600 / 850 250 / 850 Other: Number of Unmeasured Voids 1 Weight 165 lb 134 lb Patient Weight 03/14/25 11:59 Weight 134 lb Laboratory Results - last 24 hr 03/13/25 13:50: WBC 6.5, RBC 4.24, Hgb 12.5, Hct 37.1, MCV 87.5, MCH 29.5, MCHC 33.7, RDW 13.0, Plt Count 240, MPV 9.4, Neut % (Auto) 44.7, Lymph % (Auto) 45.6, [place] % (Auto) 6.3, Eos % (Auto) 2.6, Baso % (Auto) 0.6, Neut # (Auto) 2.9, Lymph # (Auto) 3.0, [place] # (Auto) 0.4, Eos # (Auto) 0.2, Baso # (Auto) 0.0, PT 10.9, INR 0.97, APTT 21.1 L, Sodium 135 L, Potassium 2.9 L*, Chloride 100, Carbon Dioxide 27, Anion Gap 10.9, BUN 11, Creatinine 0.70, Estimated Creat Clear 46, Estimated GFR 79, Est GFR ( Amer) 96, Glucose 264 H, Calcium 8.8, Total Bilirubin 0.2, AST 28, ALT 22, Alkaline Phosphatase 97, Troponin I < 0.01, Total Protein 7.3, Albumin 4.3, Globulin 3.0, Albumin/Globulin Ratio 1.4, HCV Ab HANNA w/Rflx PCR Qn Negative, HIV Ag/Ab Combo Qual Negative 03/13/25 18:55: Sodium 132 L, Potassium 3.2 L, Chloride 98, Carbon Dioxide 28, Anion Gap 9.2, BUN 10, Creatinine 0.60, Estimated Creat Clear 46, Estimated GFR 94, Est GFR ( Amer) 114, Glucose 274 H, Calcium 8.3 L, Troponin I < 0.01 03/13/25 22:07: Troponin I < 0.01 03/14/25 06:31: WBC 7.2, RBC 3.91 L, Hgb 11.5 L, Hct 34.2 L, MCV 87.5, MCH 29.4, MCHC 33.6, RDW 13.0, Plt Count 207, MPV 9.2, Neut % (Auto) 59.8, Lymph % (Auto) 32.3, [place] % (Auto) 7.3, Eos % (Auto) 0.1, Baso % (Auto) 0.4, Neut # (Auto) 4.3, Lymph # (Auto) 2.3, [place] # (Auto) 0.5, Eos # (Auto) 0.0, Baso # (Auto) 0.0, Sodium 133 L, Potassium 3.5, Chloride 101, Carbon Dioxide 30, Anion Gap 5.5, BUN 13 D, Creatinine 0.70, Estimated Creat Clear 37, Estimated GFR 79, Est GFR ( Amer) 96, Glucose 188 H D, Calcium 8.3 L I & O for Labs for Last 24 Hours: Intake & Output 03/11/25 03/12/25 03/13/25 03/14/25 11:59 11:59 11:59 11:59 Intake Total 253 / 253 Output Total 850 / 850 Balance -597 / -597 Weight 134 lb Constitutional: Present no acute distress Respiratory: Present CTA bilaterally Cardiac: Present Reg Rate and Rhythm GI: Present soft; Absent distention or tenderness Extremities: Absent edema Skin: Present intact Neuro: Present Motor Function Intact, alert, awake and oriented x 3 Assessment and Plan *Assessment and plan (1) Concussion: Status: Acute Category: Medical Code(s): S06.0XAA - Concussion with loss of consciousness status unknown, initial encounter (2) Hematoma of occipital region of scalp: Status: Acute Category: Medical Code(s): S00.03XA - Contusion of scalp, initial encounter (3) Spondylolisthesis at L5-S1 level: Status: Acute Category: Medical Code(s): M43.17 - Spondylolisthesis, lumbosacral region (4) Degenerative joint disease of sacroiliac joint: Status: Acute Category: Medical Code(s): M46.1 - Sacroiliitis, not elsewhere classified (5) Fall: Status: Acute Qualifiers: Encounter type: initial encounter Qualified Code(s): W19.XXXA - Unspecified fall, initial encounter Category: Medical Code(s): W19.XXXA - Unspecified fall, initial encounter (6) Hypokalemia: Status: Acute Category: Medical Code(s): E87.6 - Hypokalemia (7) Altered mental status: Status: Acute Category: Medical Code(s): R41.82 - Altered mental status, unspecified Plan BP has improved and potassium has normalized. Will order tylenol for headache. Will discuss further care with Dr. Fowler.
--- NOTE | 2025-03-14 08:17 | HMH.PHAINT1 ---
Pharmacy Intervention Comments: HOME MEDICATION LIST COMPLETED USING LIST FROM OUTPATIENT PHARMACY AND PT INTERVIEW WITH GRANDDAUGHTER
[2025-03-14] MEDS: ACETAMINOPHEN 325MG TAB 650 MG PO (08:26)
--- NOTE | 2025-03-14 10:10 | SW/DCPLANNER ---
I spoke w/ patient regarding plans once medically stable for discharge. PT evaluated patient and recommended outpatient PT services. Patient is agreeable to outpatient PT at [facility] at time of discharge. Services will be set up. Patient voiced she has all appropriate DME at home. I will continue to follow up w/ patient until medically stable for discharge.
--- NOTE | 2025-03-14 11:06 | HMH.PTEV ---
Physical Therapy Evaluation Rehab PT IP Evaluation Start: 03/13/25 16:48 Freq: .once Status: Active Protocol: Document 03/14/25 08:20 PHOJERROD (Rec: 03/14/25 11:05 PHORNE [id number]) Subjective/History History History Ms. Vanessa is an 85-year- old female with a history of COPD, back pain, insomnia, GERD, who presented to [facility] emergency room after a fall. They state that she started leaning toward her right, falling toward her right and tried to catch herself on the dresser. She was unconscious for just a few seconds, reportedly. On arrival, she is vomiting, nonbloody, nonbilious emesis. Patient currently lives alone and is independent with all ADLs and mobility at baseline, with 1 step to enter her home. Pt does not currently use an AD. Pt's family member was in the room and stated that she has granddaughters who live close and can help her as needed. Subjective Subjective Patient presents in bed and is alert and oriented x4. Patient states that her headache has improved since last night. Pt is willing to participate with PT this morning and walk to the bathroom. Pt appears nervous to walk due to her recent fall . She returned safely to bedside chair to eat breakfast with call light in reach. [facility] How much help from another person do you currently need... Turning from your back to your side None while in a flat bed without using bedrails? Moving from lying on back to sitting on None the side of a flat bed without using bedrails? Moving to and from a bed to a chair ( None including a wheelchair)? Standing up from a chair using your arms None ? (e.g., wheelchair, bedside chair) Walking in hospital room? None Climbing 3-5 steps with a railing? A little Mobility Score 23 Mobility Level [facility] Mobility Calculator Mobility 7 Walk 25 feet or more Rehab PT IP Eval Objective Appearance Patient Behavior Appropriate,Cooperative Patient Orientation Person,Place,Time Difficulty following instructions none Speech Pattern Clear,Appropriate,Coherent Ambulation Patient Able to Ambulate Yes Ambulation Observation IP General Gait Pattern Observation Shuffling Step,Hips Posterior to JUAN Ambulation Distance (feet) 25 Ambulation Assistive Device None Ambulation Ability Contact Guard/Hand Hold Balance Ability to Arise Able, uses arms to help Sitting Balance Steady, safe Standing Balance Steady, wide stance Dynamic Sitting Balance Ability Normal Dynamic Standing Balance Ability Normal Transfers Bed Transfer Ability Independent Chair Transfer Ability Contact Guard/Hand Hold Sit to Stand Bed Transfer Ability Contact Guard/Hand Hold Sit to Stand Chair Transfer Ability Contact Guard/Hand Hold Rehab PT IP prob,goals,plan Problems Date of Evaluation: 03/14/25 Discharge Plan PT Discharge Plan Patient is currently most appropriate to return home once medically stable for d/c. Recommend outpatient physical therapy to improve LE strength, endurance, and balance to decrease fall risk and improve ability to transfer and ambulate. Pt required [facility] during ambulation , likely due to nervousness of falling. Skilled acute therapy is not currently indicated as patient is near her baseline ability to ambulate and transfer. Eval Complexity Eval Charge Codes 14627 - High Complexity PHYSICIAN CERTIFICATION: I certify the specified therapy services for Joellen Vanessa are required, authorized, and reviewed every 30 days.
--- NOTE | 2025-03-14 11:34 | HMH.OTEV ---
OT Inpatient Evaluation Rehab OT IP Evaluation Start: 03/13/25 17:13 Freq: ONCE Status: Active Protocol: Document 03/14/25 11:31 CHRISTINE (Rec: 03/14/25 11:34 [facility] [id number]) Rehab OT IP Assessment Subjective History Ms. Vanessa is an 85-year- old female with a history of COPD, back pain, insomnia, GERD, who presented to [facility] emergency room after a fall. They state that she started leaning toward her right, falling toward her right and tried to catch herself on the dresser. She was unconscious for just a few seconds, reportedly. On arrival, she is vomiting, nonbloody, nonbilious emesis. Patient currently lives alone and is independent with all ADLs and functional transfers at baseline, with 1 step to enter her home. Pt does not currently use an AD. Pt's family member was in the room and stated that she has granddaughters who live close and can help her as needed. Pt also still drives and is very active overall. Subjective Patient presents in chair and is alert and oriented x4. Patient states that her headache has improved since last night. Pt is willing to participate with OT this morning and walk to the bathroom. Pt appears nervous to walk due to her recent fall . Objective Patient Orientation Person,Place,Birthday Right Upper Extremity Gross ROM WFL Left Upper Extremity Gross ROM WFL Transfer Training Sit/Stand Transfer Assist Level Contact Guard/Hand Hold Chair Transfer Ability Contact Guard/Hand Hold Chair Transfer Technique Sit to/from Ambulatory Lower Body Dressing Ability Standby Assistance Performing Toilet Hygiene Ability Standby Assistance Overall Commode/Toilet Transfer Ability Contact Guard Commode/Toilet Transfer Technique Sit to/from Ambulatory Commode/Toilet Transfer Assistive Grab Bars Devices Rehab OT IP prob,goals,plan Problems Date of Evaluation: 03/14/25 Rehab Potential Rehab Potential Innapropriate for Skilled Therapy Discharge Plan OT Discharge Plan Pt appears to be at her baseline with functional transfers and ADL independence . Pt can return home with family assistance once she is medically stable per physician . Therapist does recommend outpatient PT evaluation to continue addressing balance and safety. Pt agreeable with this plan. Eval Complexity Eval Charge Codes 38857 - Moderate Complexity PHYSICIAN CERTIFICATION: I certify the specified therapy services for Joellen Vanessa are required, authorized, and reviewed every 30 days.
[2025-03-14 12:00] VITALS: BP 146/79; PULSE 67; PULSE 70; RESP 18; TEMP 36.6; O2SAT 96
--- NOTE | 2025-03-15 10:11 | SW/DCPLANNER ---
Spoke with patient on the phone. Patient stated that she is doing well. Patient stated that she is aware of her upcoming appointments. Patient stated that she was not prescribed any new medicine. Patient stated that she has no concerns or questions at this time. Patient stated that the staff treated her very good. Charisma Brooks
--- NOTE | 2025-03-18 23:41 | EXP.DC.SUM ---
General Admission date:: 03/13/25 Discharge date: 03/14/25 HPI HPI HPI: Medical Decision Narrative: 89-year-old female presenting with fall. Family was with her when she had this fall. They state that she started leaning toward her right, falling toward her right and tried to catch herself on the dresser. Unable to support her self, so she fell backward and hit the back of her head. Loss of consciousness. She was unconscious for just a few seconds, reportedly. Patient complained of headache, was brought to the emergency department by family shortly thereafter. Patient not on any anticoagulation. Patient does not remember the fall, states that her head hurts, but has no other complaints including neck pain, back pain, vision changes. On arrival, she is vomiting, nonbloody, nonbilious emesis. History was obtained via conversation with patient. On arrival, patient hemodynamically stable, alert, oriented to person and place, situation appropriate, GCS 15, moving all extremities spontaneously, pupils equal and reactive to light. Full physical exam performed and significant for large hematoma on occiput. She does have right upper extremity drift without hitting bed, right lower extremity weakness as compared to the left. No evidence of facial droop or cranial nerve deficits. Lungs are clear, cardiac exam without murmurs gallops or rubs. Differential includes ischemic stroke, hemorrhagic stroke, subarachnoid hemorrhage, concussion, neurologic abnormality, endocrinologic abnormality, metabolic abnormality, ACS, AR, among others Patient placed on continuous cardiac monitoring and continuous pulse ox with initial blood pressure 221/111, heart rate 59, saturation 97% on room air. Patient was given Zofran for symptomatic management and correction of underlying abnormalities. Workup independently interpreted and significant for nonactionable CBC. Chemistry with hypokalemia 2.9, this was repleted IV. On independent interpretation of imaging, no acute intracranial hemorrhage. No large vessel occlusion on CTA's. See radiology read for full review of final results. Heart score 4. On reevaluation, patient cannot stop vomiting. Given 2.5 droperidol as well as IV potassium. I talked patient's primary care provider for admission for concussion and intractable nausea and vomiting. He stated he would need to call back. Called back and agreeable to admission. Because patient high risk for clinical decompensation, deemed appropriate for inpatient admission. Results were relayed to patient who voiced understanding and patient was agreeable to inpatient admission and management. Patient was admitted to the hospital for further definitive management. The above as per [facility] ER note. Ms. Vanessa is an 85-year-old female with a history of COPD, back pain, insomnia, GERD, who presented to [facility] emergency room after a fall. Her daughter is present and gives the history. Her witnessed the fall and states she experienced dizziness and then fell landing flat on her back hitting her head. The above is the ER note after arrival. Initially patient was alert and then she became nauseated and was vomiting. She was given IV Zofran, promethazine, and droperidol for her nausea and vomiting in the ER. She became very restless and confused and was given 2 doses of Ativan as well. After arrival to the [facility] floor she continued to be confused and insisted on being up to the bedside commode because she felt like she needed to void. Nursing did assist her. She then began to relax and at present is lying and sleeping in the bed. Information is obtained from the daughter who states she had been doing very well. She is very active. She had been gardening. She had a green party and went to [employer] on Wednesday. She was cleaning the bathroom today when she became dizzy. She has been eating and drinking without issues. She has had no fever or upper respiratory issues. Hospital Course Hospital Course Hospital Course: The patient's blood pressure was elevated and was monitored. The CTA of the neck showed no stenosis or occlusion. She did have thyroid masses. The CTA of the head revealed no large vessel stenosis or occlusion. Her head CT revealed no acute findings the CT of her cervical spine revealed nothing acute. She was given IV potassium in the emergency room due to the hypokalemia. by 03/14/2025, she was feeling much better and was awake and alert. She still had a headache and some light dizziness. Her blood pressure and potassium had improved. Tylenol was ordered for her headache a diet was also ordered. She was stable to be discharged home with a Holter monitor Exam Data for Last 24 hours Vital signs and Labs for Last 24 Hours: Temp Pulse Resp BP Pulse Ox O2 Del Method O2 Flow Rate 97.8 F 67 18 146/79 H 96 Room Air 3 03/14/25 12:00 03/14/25 12:00 03/14/25 12:00 03/14/25 12:00 03/14/25 12:00 03/14/25 13:00 03/13/25 14:31 Narrative: Constitutional Constitutional: no acute distress Comments: Nursing was able to assist patient in the bed and she is now relaxed and appears most comfortable and is sleeping. *Routine HEENT Exam Head: Present normocephalic; Absent atraumatic (Exercise hematoma on the back of her head.) Eye: Present other (Unable to get patient to open her eyes for evaluation) ENT: Present mucous membranes moist *Routine Neck Exam Neck: Absent carotid bruit, lymphadenopathy or thyromegaly *Routine Respiratory Exam Respiratory: Present CTA bilaterally (Anteriorly and posteriorly) *Routine Cardiovascular Exam Cardiovascular: Present RRR Comments: Monitor has shown sinus bradycardia *Routine Abdominal Exam Abdominal: Present soft and normoactive bowel sounds; Absent tenderness *Routine Rectal Exam Rectal:: deferred *Routine Genitalia Exam Genitalia:: deferred *Routine Extremities Exam Extremities: Present clubbing and full ROM; Absent edema *Routine Neurological Exam Neurological: Present altered mental status DS: Diagnosis Discharge Diagnosis (1) Concussion: Status: Acute Code(s): S06.0XAA - Concussion with loss of consciousness status unknown, initial encounter (2) Hematoma of occipital region of scalp: Status: Acute Code(s): S00.03XA - Contusion of scalp, initial encounter (3) Spondylolisthesis at L5-S1 level: Status: Acute Code(s): M43.17 - Spondylolisthesis, lumbosacral region (4) Degenerative joint disease of sacroiliac joint: Status: Acute Code(s): M46.1 - Sacroiliitis, not elsewhere classified (5) Fall: Status: Acute Code(s): W19.XXXA - Unspecified fall, initial encounter Qualifiers: Encounter type: initial encounter Qualified Code(s): W19.XXXA - Unspecified fall, initial encounter (6) Hypokalemia: Status: Acute Code(s): E87.6 - Hypokalemia (7) Altered mental status: Status: Acute Code(s): R41.82 - Altered mental status, unspecified Meds Home Medications and Allergies Home Medications ?Medication ?Instructions ?Recorded ?Confirmed ?Type aspirin 81 mg chewable tablet 81 mg PO DAILY 12/05/18 03/13/25 History gabapentin 300 mg capsule 300 mg PO BID 12/05/18 03/13/25 History glipizide 5 mg tablet, extended 5 mg PO BID 12/05/18 03/14/25 History release 24 hr hydrochlorothiazide 25 mg tablet 25 mg PO DAILY 12/05/18 03/13/25 History lisinopril 10 mg tablet 10 mg PO DAILY 12/05/18 03/13/25 History metformin 1,000 mg tablet 1,000 mg PO BID 12/05/18 03/14/25 History potassium chloride 20 mEq 20 meq PO DAILY 12/05/18 03/14/25 History tablet,extended release(part/cryst) simvastatin 20 mg tablet 20 mg PO HS 12/05/18 03/14/25 History calcium carbonate-vitamin D3 500 1 tab PO DAILY 03/13/25 03/13/25 History mg(1,250 mg)-600 unit chewable tablet cyanocobalamin (vitamin B-12) 500 500 mcg PO DAILY 03/13/25 03/13/25 History mcg tablet hydralazine 25 mg tablet 25 mg PO DAILY 03/13/25 03/13/25 History ipiccxfweamh-ccqqckyp-izgecv tablet 1 tab PO DAILY 03/13/25 03/13/25 History zinc 50 mg capsule 50 mg PO DAILY 03/13/25 03/13/25 History furosemide 20 mg tablet 20 mg PO Q48H 03/14/25 03/14/25 History New Prescriptions to Start Prescriptions: Allergies Allergy/AdvReac Type Severity Reaction Status Date / Time No Known Allergies Allergy Verified 04/13/23 08:24 Discharge Plan Disposition Patient Disposition: Home, Self-Care Follow up Plan Follow up with: Seema Lau, BASILIO [Physical Therapist] - 03/27/25 3:00 pm Staci Kunz PA [Physician Accounting Administrative Assistant] - 03/21/25 10:30 am Prescriptions/Medication Reconciliation: Continued hydralazine 25 mg Tablet 25 mg PO DAILY cyanocobalamin (vitamin B-12) 500 mcg Tablet 500 mcg PO DAILY pztftwntwyum-ajfhoisz-txqkok Tablet 1 tab PO DAILY zinc 50 mg Capsule 50 mg PO DAILY calcium carbonate-vitamin D3 500 mg(1,250mg) -600 unit Tablet,Chewable 1 tab PO DAILY furosemide 20 mg tablet 20 mg PO Q48H glipizide 5 MG tablet extended release 24hr 5 mg PO BID potassium chloride 20 MEQ tablet 20 meq PO DAILY simvastatin 20 MG tablet 20 mg PO HS metformin 1,000 MG tablet 1,000 mg PO BID lisinopril 10 MG tablet 10 mg PO DAILY Patient Comments: take 1 tablet by mouth once daily gabapentin 300 MG capsule 300 mg PO BID aspirin 81 MG tablet,chewable 81 mg PO DAILY hydrochlorothiazide 25 MG tablet 25 mg PO DAILY Problem Reconciliation Problems Reviewed?: Yes Patient Discharge Instructions ACTIVITY: Continue current activity DIET: continue same diet Patient Instructions: DI for Concussion, DI for Hypokalemia, DI for Hematoma (Bruise), DI for Altered Mental Status Print Language: Icelandic Providers Primary Care Provider: Leonides Haynes Admit Provider: Yanick Fowler Attending Provider: Yanick Fowler
== END 2025-03-14 14:05 | disposition home or self-care (01) ==
LOC: ER 15:04 → 2ND 15:29
PROVIDERS: Admitting Provider Family Medicine; Emergency Provider Emergency Medicine; PCP Family Medicine; Visit Provider Family Medicine
DX: S06.0X1A Concussion with loss of consciousness of 30 minutes or less, initial encounter (principal); S00.03XA Contusion of scalp, initial encounter; E11.40 Type 2 diabetes mellitus with diabetic neuropathy, unspecified; K21.9 Gastro-esophageal reflux disease without esophagitis; E87.6 Hypokalemia; R11.2 Nausea with vomiting, unspecified; R41.82 Altered mental status, unspecified; R42 Dizziness and giddiness; E78.5 Hyperlipidemia, unspecified; R00.1 Bradycardia, unspecified; W18.39XA Other fall on same level, initial encounter; R45.1 Restlessness and agitation; E04.2 Nontoxic multinodular goiter; I10 Essential (primary) hypertension; Y92.89 Other specified places as the place of occurrence of the external cause; Z79.82 Long term (current) use of aspirin; Z79.84 Long term (current) use of oral hypoglycemic drugs; Z79.899 Other long term (current) drug therapy; Z83.3 Family history of diabetes mellitus; Z80.9 Family history of malignant neoplasm, unspecified
CPT/HCPCS: 36415; 70450; 70496; 70498; 71045; 72125; 80048; 80053; 84484; 85025; 85610; 85730; 86803; 87389; 93005; 93225; 93227; 97163; 97166; 99285; G0378; J0131; J1790; J2060; J2405; J2550; J7030; Q9967

== ENCOUNTER 2025-03-27 13:51 | Outpatient (RCR) | payer MEDICARE, BC, SELFPAY ==
--- NOTE | 2025-03-28 07:45 | HMH.PTOPEV ---
PT Outpatient Evaluation Rehab PT Outpatient Evaluation Start: 03/27/25 14:00 Freq: Status: Active Protocol: Document 03/27/25 14:00 CHAPIN (Rec: 03/27/25 14:45 CHAPIN [id number]) E-signed By Seema Lau, PT Outpatient Therapy Subjective History Subjective History This is an initial PT evaluation for 89 y/o Joellen Vanessa who presents to PT with referral for ?weakness?. Pt recently admitted into [facility] for syncope and fall on 03/13. Pt reports she was about to work on her barn bathroom and she got dizzy, hot, and passed out. Pt remained confused for ~ 24 hours. Pt reports she has returned to her baseline and her PCP is not sure of what caused this syncope. Pt plans to get a cardiac work up soon. Pt had a Holter monitor on for 48 hours and pt reports no significant findings on that or the EKG. Pt's goal is to get back on the treadmill. Pt denies any weakness or difficulty performing daily tasks. Pt is on medication for the dizziness now and reports no episodes since. Pt reports she isn't sure why she is referred to PT but really wishes to get back on the treadmill. Pt reports she has returned to her PLOF. New diagnosis of cancer in past 12 No months? Prior Functional Limitations None Current Functional Limitations None Hip/Knee Eval MMT bilateral Hip Flexion Strength Grade 5 Normal Hip Abduction Strength Grade 5 Normal Hip Adduction Strength Grade 5 Normal Hip Extension Strength Grade 5 Normal Knee Extension Strength Grade 5 Normal Knee Flexion Strength Grade 5 Normal Lower Extremity Functional Index Activities Today, do you or would you have any difficulty at all with: a.Any of your usual work, housework or No difficulty school activities b. Your usual hobbies, recreational or No difficulty sporting activities c. Getting into or out of the bath No difficulty d. Walking between rooms No difficulty e. Putting on your shoes or socks No difficulty f. Squatting No difficulty g. Lifting an object, like a bag of No difficulty groceries from the floor h. Performing light activities around No difficulty your home i. Performing heavy activities around No difficulty your home j. Getting into or out of a car No difficulty k. Walking 2 blocks No difficulty l. Walking a mile No difficulty m. Going up or down 10 stairs (about 1 No difficulty flight of stairs) n. Standing for 1 hour No difficulty o. Sitting for 1 hour No difficulty p. Running on even ground No difficulty q. Running on uneven ground No difficulty r. Making sharp turns while running fast No difficulty s. Hopping No difficulty t. Rolling over in bed No difficulty LEFI Score Lower Extremity Functional Index Score 80 Miscellaneous Dx PT Eval Objective Objective 6 minute walk test: 390 meters Outpatient Therapy Assessment Clinical Impression Additional details: Pt does not report a concern with her daily functioning, mobility, or strength. Pt does not demo any measurable weakness or impaired endurance. PT educated pt on HEP to target general BLE strengthening. PT educated pt to follow up with the science interpreter as planned prior to returning to moderate-high intensity cardiopulmonary exercises. Pt verbalized understanding to all educational topics. Pt not appropriate for skilled OP PT at this time d/t minimal-no strength deficits and no subjective complaints. Outpatient Therapy Plan of Care Addendums This patient is a candidate for social No or vocational rehab? Patient/Guardian verbally acknowledges Yes understanding of treatment program and consents to further treatment? Patient/Guardian verbally acknowledges Yes understanding of diagnosis, prognosis and goals for treatment? Eval Complexity PT Charges 44538 - Moderate Complexity Shoulder/Elbow Eval Shoulder Objective Measurements Elbow Objective Measurements PHYSICIAN CERTIFICATION: I certify the specified therapy services for Joellen Farhana Otf are required, authorized, and reviewed every 30 days.
== END 2025-03-27 23:59 | disposition home or self-care (01) ==
LOC: PT 13:51
PROVIDERS: PCP Family Medicine; Visit Provider Family Medicine
DX: R53.1 Weakness (principal)
CPT/HCPCS: 97163

== ENCOUNTER 2025-03-31 10:08 | Outpatient (CLI) | payer MEDICARE, BC, SELFPAY | END 2025-03-31 23:59 | disposition home or self-care (01) | LOC: LAB.DROPOF 04-02 10:08 | PROVIDERS: PCP Nurse Practitioner; Visit Provider Nurse Practitioner | DX: N39.0 Urinary tract infection, site not specified (principal) | CPT/HCPCS: 87086 ==

== ENCOUNTER 2025-04-09 13:19 | Outpatient (CLI) | payer MEDICARE, BC, SELFPAY ==
--- OUTSIDE RECORDS SUMMARY | 2025-01-01 11:30 | XMS_ITS ---
[facility] Address [address] [facility] [address] [place] [id number] Care Team Providers Care Infrastructure Analyst Name Role Phone Maicol Haynes Primary Care Provider Pipo Fowler Unavailable [phone] Allergies No Known Allergies REASON FOR VISIT Discuss Possible Procedure to Remove Skin Cancer Medications Medication SIG (Take, Route, Frequency, Duration) Notes Start Date End Date Status Gabapentin 300 MG 1 cap(s) orally 2 times a day for 30 days 10/31/2024 Active Potassium Chloride Camille ER 2 0 MEQ 1 tab(s) Orally Once a day for 90 days Active Furosemide 20 MG TAKE 1 TABLET BY MOUTH EVERY OTHER DAY for 90 Active metFORMIN HCl 1000 MG TAKE 1 TABLET BY MOUTH TWICE DAILY for 90 Active hydroCHLOROthiazide 25 MG TAKE 1 TABLET BY MOUTH DAILY for 90 Active Simvastatin 20 MG 1 tab(s) orally once a day (at bedtime) for 90 days Active Lisinopril 10 MG TAKE 1 TABLET BY MOUTH EVERY DAY for 90 Active glipiZIDE 5 MG TAKE 1 TABLET BY MOUTH TWICE DAILY for 90 days Active Valsartan-hydroCHLOROthiazid e 320-25 MG 1 tab(s) orally once a day for 30 days Active Blood Glucose Test Strips 333 - 1 strip In Vitro once a day or as directed 07/18/2024 Active Aspirin 81 MG 1 tablet Orally Once a day for 30 day(s) Active Os-Barron Calcium + D3 500-5 MG-MCG 1 tablet with meals Orally once a day Active OneTouch Ultra DIRECTED ONCE A DAY OR DIRECTED 02/13/2013 Active Meclizine HCl 25 MG 1 tab(s) orally ac and hs prn for inner ear Active Vital Signs Blood pressure systolic 180 mm Hg 01/02/20 25 Blood pressure diastolic 80 mm Hg 025 Heart Rate 62 /min 01/01/2025 Height 62 in 01/01/2025 Weight 135.6 lbs 01/01/2025 BMI 24.80 kg/m2 01/01/2025 Encounters Encounter Location Date Provider Diagnosis [facility] [address] [place], [place] [id number] 01/01/2025 Pipo Fowler Actinic keratoses L57.0 Assessments Encounter Date Diagnosis (ICD Code) Assessment Notes Treatment Notes Treatment Clinical Notes Section Notes 01/01/2025 Actinic keratoses (ICD-10 - L57.0) Plan Of Treatment Next Appt Details Follow Up: prn, Reason: Provider Name:Staci walls, 05/10/2025 09:30:00 AM, [address], [address], [place], [id number], Procedure Notes * Category Sub-Category Detail Notes Cryotherapy Actinic Keratosis Number of lesions treated: 2, chest, hand Method: Ella LL-100 used to freeze and refreeze the lesions, The patient tolerated the procedure well. Post Op instruction: Wash with vinegar w ater twice a day, Apply Vaseline twice a day Progress Notes * MARILYN MCMULLENDOB:[birth year] (89 yo F)Acc No.[id number]:01/01/2025 Progress Notes Patient: MARILYN SLADE Provider: Pipo Fowler M.D. :1935 A ge:89 Y S ex:Female Date:01/01/2025 Address:[address] [place] [address], [id number] Pcp:Maicol Haynes Subjective: * Chief Complaints: * 1 . Discuss Possible Procedure to Remove Skin Cancer. * HPI: D ermatology: The patient is here today with c/o suspicious skin lesion of the chest. Pt states the lesion is sore to touch. 89 year old female presents with c/o skin lesion. * ROS: C ARDIOLOGY: no C hest pain. n o S hortness of breath. ? G ASTROENTEROLOGY: no N ausea. n o V omiting. n o D iarrhea.? U ROLOGY: no D ifficulty urinating. n o B lood in urine. * Medical History: D iabetes mellitis, Hypertension. * Family History: F ather: . M other: . 2 son(s) , 1 daughter(s) . . no female or colon cancer. * Social History: C URRENT TOBACCO USE S moking Status: Patient does NOT smoke. M arital Status: Single, 2006. Past smoking status: no. Alcohol: no. * Medications: T aking Os-Barron Calcium + D3 500-5 MG-MCG Tablet 1 tablet with meals Orally once a day , Taking Aspirin 81 MG Tablet Delayed Release 1 tablet Orally Once a day , Taking Meclizine HCl 25 MG Tablet 1 tab(s) orally ac and hs prn for inner ear , Taking OneTouch Ultra DIRECTED ONCE A DAY OR DIRECTED , Taking Valsartan-hydroCHLOROthiazide 320-25 MG Tablet 1 tab(s) orally once a day , Taking glipiZIDE 5 MG Tablet TAKE 1 TABLET BY MOUTH TWICE DAILY , Taking Blood Glucose Test Strips 333 - Strip 1 strip In Vitro once a day or as directed , Taking Lisinopril 10 MG Tablet TAKE 1 TABLET BY MOUTH EVERY DAY , Taking Simvastatin 20 MG Tablet 1 tab(s) orally once a day (at bedtime) , Taking Potassium Chloride Camille ER 20 MEQ Tablet Extended Release 1 tab(s) Orally Once a day , Taking Gabapentin 300 MG Capsule 1 cap(s) orally 2 times a day , Taking metFORMIN HCl 1000 MG Tablet TAKE 1 TABLET BY MOUTH TWICE DAILY , Taking Furosemide 20 MG Tablet TAKE 1 TABLET BY MOUTH EVERY OTHER DAY , Taking hydroCHLOROthiazide 25 MG Tablet TAKE 1 TABLET BY MOUTH DAILY , Medication List reviewed and reconciled with the patient * Allergies: N .K.D.A. Objective: * Vitals: W t:135.6, Temp:97.8, BP:180/80, HR:62, Nurse:MARTINE, Ht: 62, BMI:24.80. * Examination: G eneral Examination: Chest: raised 7mm lesion of the midchest with a small eschar. . Extremities: dorsum of left hand at 4th MP joint, small cutaneous horn . Assessment: * Assessment: 1. A ctinic keratoses - L57.0 (Primary) Plan: * Treatment: * Procedures: C ryotherapy Actinic Keratosis: Number of lesions treated: 2 , chest, hand. M ethod:?Ella LL-100 used to freeze and refreeze the lesions, The patient tolerated the procedure well.. P ost Op instruction: W smita with vinegar water twice a day, Apply Vaseline twice a day.? * Procedure Codes: 1 7000 DESTRUCTION BENIGN LESION, CRYOSURGERY,ELECTROSURGERY FIRST LESION, 83365 DESTRUCTION BENIGN LESION,CRYO, ELECTRO, 2-14 LESIONS * Follow Up: p rn * Billing Information: * Visit Code: 90481 Office Visit, Est Pt., Level 3. Modifiers: 25 * Procedure Codes: 63353 DESTRUCTION BENIGN LESION, CRYOSURGERY,ELECTROSURGERY FIRST LESION. 95627 DESTRUCTION BENIGN LESION,CRYO, ELECTRO, 2-14 LESIONS. * Electronic signature of Pipo Fowler MD on 04/09/2025 at 01:44 PM EDT Sign off status: Pending * Provider: Pipo Fowler M.D. Date: 0 01/01/2025 Generated for Leroy guzman/Marisa/Ignacioitting on: 0 04/09/2025 01:44 PM EDT History and Physical Notes * HPI (History of Present Illness) Category Sub-Category Detail Notes Category Not es Dermatology skin lesion Examination Category Sub-Category Detail Notes Category Not es General Examination Extremities: dorsum of le ft hand at 4th MP joint, small cutaneous horn Chest: raised 7mm lesion of the midchest with a small eschar.
--- OUTSIDE RECORDS SUMMARY | 2025-01-26 06:15 | XMS_ITS ---
Author Organization [facility] Address 1210 [facility] [address] [place] [id number] Care Team Providers Care Tower Truck Driver Name Role Phone Maicol Haynes Primary Care Provider Carlos AlbertoRyan arguelloa Unavailable [phone] Allergies No Known Allergies Results Component Value [...] 120 Performing Lab: Notes/Report: Test performed by [facility] [address] [place] [address] , [address], [place] [address] Aristeo Reddy MD, Travel Agency Manager CLIA: [id number] Sodium 141 135-145 mmol/L Potassium 3.5 3.5-5.3 [...] Normal Performing Lab: Notes/Report: Test performed by [facility] [address] [place] [address] , [address], [place] [address] Aristeo Reddy MD, Travel Agency Manager CLIA: [id number] Cholesterol 106 <200 mg/dL Triglycerides 108 <150 [...] Normal Performing Lab: Notes/Report: Test performed by [facility] [address] [place] [address] [place] [address] Aristeo Reddy MD, Travel Agency Manager CLIA: [id number] TSH reflex to FT4 1.03 0.43-5.25 mU/L P-Microalbumin/Creatinine, R andom Urine Sample Reviewed date:02/01/2025 02:38:31 PM Interpretation: Normal Performing Lab: Notes/Report: Test performed by [facility] [address] [place] [address] , [place] [address] Aristeo Reddy MD, Travel Agency Manager CLIA: [id number] Albumin/Creatinine Ratio, Urine 9 0-30 ug/m g [...] TWICE DAILY for 90 Active Vital Signs Blood pressure systolic 150 mm Hg 01/27/20 25 Blood pressure diastolic 66 mm Hg 025 Heart Rate 67 /min 01/26/2025 Height 62 in 01/26/2025 Weight 136.0 lbs 01/26/2025 BMI 24.87 kg/m2 01/26/2025 Encounters Encounter Location Date Provider Diagnosis [facility] [address] [facility] [address] [place], [place] [id number] 01/26/2025 Staci Kunz Essential hypertensi on I10 [...] [address], [address] , [place], [place], [id number], Progress Notes * MARILYN MCMULLENDOB:[birth year] (89 yo F)Acc No.[id number]:01/26/2025 Progress Notes Patient: NATAN SLADETIE Provider: CORNELIUS Liz :1935 A ge:89 Y S ex:Female Date:01/26/2025 Address:[address] [place], [place] [id number] Pcp:Maicol Haynes Subjective: * Chief Complaints: * [...] G 2211 Complex e/[place], [address] GLYCATED HEMOGLOBIN TEST, Modifiers: QW , 86415 CBC WITH AUTO DIFF, 61013 Urinalysis, no micro, 3052F HG A1C>EQUAL 8.0%<EQUAL 9.0%, G8752 MOST RECENT SYSTOLIC BP < 140MM HG, G8754 MOST RECENT DIASTOLIC BP < 90MM HG * Follow Up: v ia phone to report test results * Billing Information: * Visit Code: 81421 Office Visit, Est Pt., Level 4. * Procedure Codes: G2211 Complex e/[place]. [address] GLYCATED HEMOGLOBIN TEST. Modifiers: QW 13477 CBC WITH AUTO DIFF. 49012 Urinalysis, no micro. 3052F HG A1C>EQUAL 8.0%<EQUAL 9.0%. G8752 MOST RECENT SYSTOLIC BP < 140MM HG. G8754 MOST RECENT DIASTOLIC BP < 90MM HG. * Electronic signature of CORNELIUS Chery on 04/09/2025 at 01:43 PM EDT Sign off status: Pending * Provider: CORNELIUS Liz Date: 0 01/26/2025 Generated for Leroy guzman/Marisa/eTransmitting on: 0 04/09/2025 01:43 PM EDT History and Physical Notes * [...]
--- OUTSIDE RECORDS SUMMARY | 2025-03-21 11:15 | XMS_ITS ---
Author Organization [facility] Address [address] [facility] [address] [place], [place] [id number] Care Team Providers Care Scrap Stripper Hand Name Role Phone Maicol Haynes Primary Care Provider Carlos AlbertoRyan arguelloa Unavailable [phone] Allergies No Known Allergies Results Component Value [...] 123 Performing Lab: Notes/Report: Test performed by [facility]0 [facility] , [address], [place] [address] Aristeo Reddy MD, Dump Truck Operator CLIA: [id number] Sodium 137 135-145 mmol/L Potassium 4.2 3.5-5.3 [...] Interpretation: Performing Lab: Notes/Report: Test performed by [employer] [address] , [facility], [place] [address] Aristeo Reddy MD, Dump Truck Operator CLIA: [id number] TSH reflex to FT4 0.90 0.43-5.25 mU/L Reason For Referral Diagnosis 1 Injury of head, subs equent encounter (S09.90XD) Diagnosis 2 Dizziness (R42) Diagnosis 3 Post concussion synd fadi (F07.81) [facility] Referring Provider First Name Staci Referring Provider Last Name Ze Referring Provider Speciality Physician Aerospace Mechanic Referred Provider Specialty Neurology General Notes Staci Kunz 03:33:05 PM >Pt needs an appt with Dr. Allen in [place] 03/21/2025 3:51:42 PM > faxed all documents to Dr. Newsome's office Referral Priority Routine REASON FOR VISIT F/U [facility] Medications Medication SIG (Take, Route, Frequency, Duration) [...] Problem Status W/U Status Risk Notes Problem [id number] Post concussion syndrome (F07.81) Active confirmed Vital Signs Blood pressure systolic 120 mm Hg 03/21/20 25 Blood pressure diastolic 76 mm Hg 025 Heart Rate 70 /min 03/21/2025 Height 62 in 03/21/2025 Weight 132.6 lbs 03/21/2025 BMI 24.25 kg/m2 03/21/2025 Encounters Encounter Location Date Provider Diagnosis [facility] [address] [phone] 03/21/2025 Staci Kunz Dizziness R42 ; Inju [...] calling to make a cardiology appt at [facility]. They would also like a neurology appt. [...] calling to make a cardiology appt at [facility]. They would also like a neurology appt. [...] [address], [address], [place], [place], [id number], Progress Notes * MARILYN MCMULLENDOB:[birth year] (89 yo F)Acc No.[id number]:03/21/2025 Patient: Kamilah MARILYN BRADSHAW Provider: CORNELIUS Liz :1935 A ge:89 Y S ex:Female Date:03/21/2025 Address:[address] [place] [address], [facility] Pcp:Maicol Haynes Subjective: * Chief Complaints: * 1 . F/U [facility]. * HPI: H PI: Patient is here today for a Transition of Care Visit. Discharge from the following Facility: [facility],Discharge date: 03/14/2025,Date of phone contact following [...] Temp: 97.7, BP: 120/76, HR: 70, Nurse: LYIDA, Ht: 62, BMI:24.25. * Examination: G eneral [...] ssential hypertension - I10 6 . B WV 24.0-24.9, adult - Z68.24 Plan: * Treatment: Value Reference Range T SH reflex to FT4 0.90 0.43-5.25 - mU/L * Makayla Brown 03/28/2025 03: 21:54 PM > See phone encounter Notes: Holter monitor results still pending. Patient's granddaughter is calling to make a cardiology appt at [facility]. They would also like a neurology appt.? [...] MERGE, G2211 Complex e/[place] [address] CBC WITH AUTO DIFF, G8420 BMI<30 AND >=22 CALC & DOCU, G8752 MOST RECENT SYSTOLIC BP < 140MM HG, G8754 MOST RECENT DIASTOLIC BP < 90MM HG * Follow Up: v ia phone to report test results * Billing Information: * Visit Code: 54724 Office Visit, Est Pt., Level 4. * Procedure Codes: 73474 TRANS CARE MGMT 14 DAY DISCH. 1111F DSCHR MED/CURENT MED MERGE. G2211 Complex e/[place]. [address] CBC WITH AUTO DIFF. G8420 BMI<30 AND >=22 CALC & DOCU. G8752 MOST RECENT SYSTOLIC BP < 140MM HG. G8754 MOST RECENT DIASTOLIC BP < 90MM HG. * Electronic signature of CORNELIUS Chery on 04/09/2025 at 01:44 PM EDT Sign off status: Pending * Provider: CORNELIUS Liz Date: 0 03/21/2025 Generated for Leroy guzman/Fafransiscag/eTransmitting on: 0 04/09/2025 01:44 PM EDT History and Physical Notes * HPI (History of Present Illness) Category Sub-Category Detail Notes Category Not es HPI Patient is here today for a [facility] sition of Care Visit. Discharge from the following Facility: [facility],Discharge date: 03/14/2025,Date of phone contact following [...]
--- NOTE | 2025-04-09 13:30 | US_ITS ---
FINAL REPORT TECHNIQUE: Real-time grayscale and color ultrasound of the thyroid was performed. CLINICAL HISTORY: abn ekg, htn, syncope COMPARISON: None FINDINGS: The thyroid gland measures 4.4 x 2.0 x 1.7 cm on the right and 5.2 x 1.8 x 1.8 cm on the left. The isthmus measures 1.6 cm. Nodules: There is a multitude of nodules identified throughout both lobes of the thyroid and the isthmus. There is a dominant lesion within the isthmus measuring 3.8 x 2.8 cm, cystic and solid, consistent with a TR 3 nodule. IMPRESSION: Dominant TR 3 nodule in the isthmus measuring up to 3.8 cm. FNA recommended per TI-RADS criteria. Reviewed, Interpreted and Dictated by Paul Padilla MD Transcribed by Vanessa Doe Authenticated and [facility]
--- OUTSIDE RECORDS SUMMARY | 2025-04-09 13:43 | XMS_ITS ---
Author Organization Unknown TREATMENT PLAN Planned [facility] Start Date Provider Encounter for Check-up [phone] [facility]
--- OUTSIDE RECORDS SUMMARY | 2025-04-09 13:44 | XMS_ITS | Data Portability ---
Author Organization [place] - LINDA Mercado [facility] Address [address] [place] [address] Assessment Encounter Date Assessment Date Assessment LastModified by Organization Details LastModified Time 12/02/2021 12/02/2021 Follow up yearly [email or web address] Not available 12/02/2021 07:33:30 12/08/2022 12/08/2022 Follow up yearly [email or web address] Not available 12/08/2022 07:13:39 12/07/2023 12/07/2023 Follow up yearly [email or web address] Not available 12/07/2023 07:09:11 08/29/2024 08/29/2024 Follow up as scheduled [email or web address] Not available 08/29/2024 13:51:09 12/11/2024 12/11/2024 Follow up in 6 months Not available 12/11/2024 10:37:20 Plan of Treatment Reminders Order Date Submit Date Provider Last Modified By Organization Details Last Modified Time Details Appointments DERMATOLO GY VISIT 2025 09:45A Sofia FLORES MD Not available Not available Not available Lab None recorded. Referral None recorded. Procedures None recorded. Surgeries None recorded. Imaging None recorded. Medication Orders None recorded. Patient TargetsNo targets recorded. Patient Instructions Encounter Date Encounter Id Patient Instructions Last Modified By Organization Details Last Modified Time 12/02/2021 [id number] Education: We discussed the potential diagnostic options, options for further evaluation and treatments, and the risks and benefits of each. [email or web address] Not available 12/02/2021 07:33:30 12/08/2022 [id number] Education: We discussed the potential diagnostic options, options for further evaluation and treatments, and the risks and benefits of each. [email or web address] Not available 12/08/2022 07:13:44 12/07/2023 [id number] Education: We discussed the potential diagnostic options, options for further evaluation and treatments, and the risks and benefits of each. [email or web address] Not available 12/07/2023 07:09:16 08/29/2024 [id number] Education: We discussed the potential diagnostic options, options for further evaluation and treatments, and the risks and benefits of each. [email or web address] Not available 08/29/2024 13:31:36 12/11/2024 [id number] Education: We discussed the potential diagnostic options, options for further evaluation and treatments, and the risks and benefits of each. [email or web address] Not available 12/11/2024 10:12:47 Reason for Referral None Reported. Results Created Date Observation Date Name Description Value Unit Range Abnormal Flag Note LastModifiedBy Organization Detail LastModifiedTime Result Notes None recorded. 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 Procedures Surgical History Date Name Laterality Status Provider Name and Address Organization Details Recorded Time 12/11/19 25 Destruction Premalignant Lesion(s) completed [facility] 12/11/2024 10:36:13 12/11/19 25 Destruction BN Lesions completed [facility] 12/11/2024 10:36:11 08/29/20 24 Destruction Premalignant Lesion(s) completed [facility] 08/29/2024 13:50:53 12/07/19 24 Destruction Premalignant Lesion(s) completed Neelima Simpson [facility] 12/07/2023 10:22:35 12/08/19 23 Destruction Premalignant Lesion(s) completed Paola Sullivan [facility] 12/08/2022 10:16:21 12/02/19 22 Destruction Premalignant Lesion(s) completed [facility] 12/02/2021 10:21:10 12/02/19 22 Destruction BN Lesions completed [facility] 12/02/2021 10:21:20 12/03/19 21 Destruction Premalignant Lesion(s) completed [facility] 12/03/2020 09:29:19 12/05/19 20 Destruction Premalignant Lesion(s) completed [facility] 12/05/2019 09:38:23 12/05/19 20 Destruction BN Lesions completed [facility] 12/05/2019 09:37:59 11/29/19 19 Destruction Premalignant Lesion(s) completed [facility] 11/29/2018 09:46:50 11/23/19 18 Destruction Premalignant Lesion(s) completed [facility] 11/23/2017 09:25:47 11/17/19 17 Destruction Premalignant Lesion(s) completed Paola NorahSuleiman [facility] 11/17/2016 09:32:41 Imaging Results None recorded. Procedure Notes None recorded. Medical Equipment None Reported. Allergies No known drug allergies Medications Name Sig Start Date Stop Date Status Note LastModified by Organization Details LastModified Time Multiple Vitamin capsule Daily active Duration: 30 days;Freque ncy: daily;Medic ation Description : multivitami n; Dosage:1; Route:oral; refills:3; Quantity:10 0 capsule Not Available Not Available Not Available glipizide ER 5 mg tablet, extended release 24 hr active Duration: 10 days;Medica tion Description : glipizide; Route:oral; refills:0; Quantity:30 tablet, extended release Not Available Not Available Not Available aspirin 81 mg tablet Daily active Duration: 30 days;Freque ncy: daily;Medic ation Description : aspirin; Dosage:1; Route:oral; refills:0; Quantity:30 Not Available Not Available Not Available Os-Barron 500 + D3 500 mg-5 mcg (200 unit) tablet active Medication Description : calcium and vitamin D combination ; Route:oral; refills:0 Not Available Not Available Not Available metformin active Medication Description : metformin; Route:oral; refills:0 Not Available Not Available Not Available Vitals None Recorded Social History Question Answer Notes LastModified by Organizat ion Details LastModified Time Tobacco Smoking Status Never Smoker Paola Laurie [facility] 11/17/2016 09:10:58 What Was The Date Of Your Most Recent Tobacco Screening? 11/29/2018 Information n ot available 12/19/2019 Sex: Unknown Functional Status None recorded. Mental Status None recorded. Family History Nothing Reported. Medical History No medical history recorded. Gynecological HistoryNo gynecological history recorded. Obstetrics History GPAL:G 0 P 0 0 0 0 Past Encounters Encounter ID Performer Location Encounter Start Date Encounter Closed Date Diagnosis/Indication Diagnosis SNOMED-CT Code Diagnosis ICD10 Code Diagnosis Note [id number] MD ASPEN JIMENEZ [facility] [address] [place], [place] [id number] 11/17/2016 08:45:41 11/17/2016 09:41:24 Actinic keratosis 542335473 L57.0 Education, then cryodestru ction with liquid nitrogen (LN) x 8 on face, chest, and arms. Senile hyperkeratosis 39 6840009 L82.1 Reassuranc e and education regarding the disorder and options. Epidermoid cyst 18837649 6 L72.0 Reassuranc e and education regarding the disorder and options. [id number] MD ASPEN JIMENEZ [facility] [address] [place] [address] 11/23/2017 09:16:16 11/25/2017 09:13:58 Actinic keratosis 240849605 L57.0 LN x 7 Senile hyperkeratosis 39 7783463 L82.1 Reassuranc e [place] 925195764 L81.4 reassuranc e Epidermoid cyst of skin 804452936 L72.0 reassuranc e [id number] MD ASPEN JIMENEZ [facility] [address] [place] [address] 11/29/2018 09:08:32 11/30/2018 08:17:01 Actinic keratosis 502387016 L57.0 LN x 9 Senile hyperkeratosis 39 3138041 L82.1 Reassuranc e [place]ent[place] 201110946 L81.4 reassuranc e Epidermoid cyst of skin 801524754 L72.0 reassuranc e [id number] MD ASPEN JIMENEZ [place] [place] [address] [place] [address] 7 12/05/2019 09:02:00 12/05/2019 13:39:54 Epidermoid cyst of skin 038566811 L72.0 reassuranc e Senile hyperkeratosis 39 7180710 L82.1 Reassuranc e [place] 706345064 L81.4 reassuranc e Actinic keratosis [address] x 17 Inflamed s eborrheic keratosis 576199887 L82.0 LN x 1 [id number] MD ASPEN JIMENEZ [place] [address] [place] [id number] 12/03/2020 08:52:54 12/03/2020 12:31:00 Epidermoid cyst of skin 417086420 L72.0 reassuranc e Senile hyperkeratosis 39 5320346 L82.1 Reassuranc e [place]ent[place] 591698784 L81.4 reassuranc e Actinic keratosis [address] x 14 efudex discussed- -pt declines [id number] MD ASPEN JIMENEZ [place] [address] [place] [address] 7 12/02/2021 09:51:20 12/02/2021 10:32:01 Epidermoid cyst of skin 089760660 L72.0 reassuranc e Senile hyperkeratosis 39 3473311 L82.1 Reassuranc e [place]entigo 570684956 L81.4 reassuranc eRecommend ed Equate Ultra Sunscreen 30+ and sun protecting hats/cloth ing Actinic keratosis [address] x 4 efudex discussed- -pt declines Inflamed s eborrheic keratosis 092892078 L82.0 LN x 9 [id number] MD ASPEN JIMENEZ [facility] [address] [place] [address] 12/08/2022 09:59:47 12/08/2022 10:19:02 Epidermoid cyst of skin 773354210 L72.0 reassuranc e Senile hyperkeratosis 39 5957527 L82.1 Reassuranc e Lentigo 197039139 L81.4 reassuranc eRecommend ed Equate Ultra Sunscreen 30+ and sun protecting hats/cloth ing Actinic keratosis 205902 [address] x 22 [id number] MD ASPEN JIMENEZ [facility] [address] [place] [address] 12/07/2023 09:46:21 12/07/2023 11:08:36 Epidermoid cyst of skin 909279770 L72.0 Reassuranc e Lentigo 926525443 L81.4 Reassuranc eRecommend ed Equate Ultra Sunscreen 30+ and sun protecting hats/cloth ing Actinic keratosis 306887 [address] x 7 Raised avtar orrheic keratosis 0461970406 95834 L82.1 Reassuranc e [id number] MD ASPEN JIMENEZ [facility] [address] [place] [address] 08/29/2024 13:07:15 08/29/2024 14:31:17 Actinic keratosis 644099254 L57.0 LN x 25 History of squamous cell carcinoma of skin 068700851 Z85.828 Lt neck, Lt cheekRevie wed outside path reportNo obvious tumor noted todayDiscu ssed tx optionsWil l proceed w/ close observatio n todayPhoto s todayF/u in 3-4 months for recheck Lentiginosis 960846962 L 81.4 Reassuranc eRecommend ed Equate Ultra Sunscreen 30+ and sun protecting hats/cloth ing Raised avtar orrheic keratosis 4573283532 92249 L82.1 Reassuranc e [id number] MD ASPEN JIMENEZ [facility] [address] [place] [address] 12/11/2024 09:24:42 12/11/2024 10:41:55 History of squamous cell carcinoma of skin 548717122 Z85.828 Lt neck, Lt cheek - untreated, no obvious signs of tumor, photos 08/2024, doing well Lentiginosis 063619130 L 81.4 Reassuranc eRecommend ed Equate Ultra Sunscreen 30+ and sun protecting hats/cloth ing Raised avtar orrheic keratosis 4759201495 82188 L82.1 Reassuranc e Actinic keratosis [address] x 8 Inflamed s eborrheic keratosis 526324760 L82.0 LN x 2 Epidermoid cyst of skin 223344229 L72.0 Reassuranc eDiscussed tx options including observatio n, I&D, excisionPt elects to proceed w/ observatio n d/t not being bothersome at this time Health Concerns Section Related Observation LastModified by Organization Detai ls LastModified Time None Recorded Concern Status LastModified by Organization Details LastModified Time None Recorded Advance Directives Directive None Recorded Payers Insurance Date Sequence Insurance Name Policy Number Policy Shaw Covered Member ID Shaw Member ID Guarantor Name 12/08/2024 2 [place] [id number] Joellen Vanessa [id number] Joellen Vanessa 08/29/2024 1 [place] Joellen Vanessa [id number] Joellen Vanessa 12/11/2024 1 [place] Joellen Vanessa [id number] Joellen Vanessa Notes Date Note Type Note Provider Name and Address Organization Details Recorded Time 12/02/2021 text/html Established lilia ent LOCATION: left lat thigh, hairline, hands, neckDURATION: x monthsSYMPTOMS: rough raisedTREATMENTS: none no issues with scarring, or healingPatient is on ASA Denies any other new, changing, or bleeding lesions, or other rashes, feels well , in a good mood and has no family history of melanoma. ORA FLORES MD [address] [place], [phone], [facility] 12/02/2021 11:07:09 12/08/2022 text/html Established [facility] ent LOCATION: trunkDURATION: x yearsSYMPTOMS: itch roughTREATMENTS: none no issues with scarring, or healingPatient is on ASA Denies any other new, changing, or bleeding lesions, or other rashes, feels well , in a good mood and has no family history of melanoma. ORA FLORES MD [address] [place] [address], [phone], [facility] 12/08/2022 12:14:48 12/07/2023 text/html Established [facility] ent Patient it presents today for annual waist up skin exam. no issues with scarring, or healingPatient is on ASA Denies any other new, changing, or bleeding lesions, or other rashes, feels well , in a good mood and has no family history of melanoma. ORA FLORES MD [address] [place] [address], [phone], [facility] 12/07/2023 11:22:54 08/29/2024 text/html Established [facility] ent - presents for evaluation of bx proven SCC on Lt neck and Lt cheek performed by Dr Amish Fowler in [place]. Pt reports bx sites are healing well, no concerns. LOCATION: Forehead, scalp, hands, arms DURATION: Few months SYMPTOMS: Rough patches TREATMENTS: None, would like cryo today. Patient is on ASANo issues with scarring, or healing Denies any other new, changing, or bleeding lesions, or other rashes, feels well , in a good mood and has no family history of melanoma. ORA FLORES MD [address] [place] [address], [phone], [facility] 08/29/2024 17:40:31 12/11/2024 text/html Established [facility] ent - presents for recheck of bx proven SCC on Lt neck and Lt cheek performed by Dr Amish Fowler in [place] - no obvious tumor noted at previous visit. Pt reports sites healed well, no concerns. LOCATION: Chest DURATION: 2 months SYMPTOMS: Tender to touch TREATMENTS: None Pt presents for annual waist up exam today. Check face, scalp. Patient is on ASANo issues with scarring, or healing Denies any other new, changing, or bleeding lesions, or other rashes, feels well , in a good mood and has no family history of melanoma. ORA FLORES MD [address] [place], [phone], [facility] 12/11/2024 13:01:52 OBGyn Episode No OBEpisode recorded.
--- OUTSIDE RECORDS SUMMARY | 2025-04-09 13:44 | XMS_ITS | Patient Health Record ---
Author Organization [facility] [place] Address [address] [facility] [address] [place] [id number] Care Team Providers Care System Admin Name Role Phone Maicol Haynes Primary Care Provider Pipo Fowler Unavailable [phone] Vikash Victoria Unavailable [phone] Winifred Sosa Unavailable [phone] Staci Kunz Unavailable [phone] Allergies No Known Allergies Results Component Value Reference Range Notes H-BMP Reviewed date:03/16/2025 12:43:50 PM Interpretation: Performing Lab: Notes/Report: HELD OFF ON LAST TROPONIN PER ROLAND, PT WAS DISORIENTED NA 132 136-145 mmol/L K 3.2 3.5-5.1 mmoL/L CL 98 98-107 mmol/L CO2 28 22.0-30.0 mmol/L GAP 9.2 5-15 mEq/L BUN 10 7-17 mg/dl CREATT 0.60 0.52-1.04 mg/dl CRCLE 46 50-200 mL/min GFRAA 114 >60 ML/MIN EGFR 94 >60 ml/min GLU 274 74-100 mg/dl CA 8.3 8.4-10.2 mg/dl H-CBC Reviewed date:03/16/2025 12:43:50 PM Interpretation: Performing Lab: Notes/Report: WBC 7.2 4.8-10.8 K/mm3 RBC 3.91 4.20-5.40 M/mm3 HGB 11.5 12.2-16.2 g/dL HCT 34.2 37.0-47.0 % MCV 87.5 81-99 fl MCH 29.4 27.0-31.2 pg MCHC 33.6 31.8-35.4 g/dL RDW-SD 41.3 RDW 13.0 11.5-17.5 % PLT 207 142-424 K/mm3 MPV 9.2 7.4-10.4 fl NE% 59.8 37.0-80.0 % LY% 32.3 10-50 % MO% 7.3 1.7-9.3 % EO% 0.1 0.1-12.0 % BA% 0.4 0.1-2.0 % NRBC% 0 IG% 0.1 NE# 4.3 1.8-7.8 K/mm3 LY# 2.3 0.7-4.5 K/mm3 MO# 0.5 0.1-1.0 K/mm3 EO# 0.0 0.0-0.4 Kmm3 BA# 0.0 0-0.2 K/mm3 NRBC# 0 IG# 0.01 H-BMP Reviewed date:03/16/2025 12:43:50 PM Interpretation: Performing Lab: Notes/Report: NA 133 136-145 mmol/L K 3.5 3.5-5.1 mmoL/L CL 101 98-107 mmol/L CO2 30 22.0-30.0 mmol/L GAP 5.5 5-15 mEq/L BUN 13 7-17 mg/dl Delta: 10 on 03/13/25-1854 CREATT 0.70 0.52-1.04 mg/dl CRCLE 37 50-200 mL/min GFRAA 96 >60 ML/MIN EGFR 79 >60 ml/min GLU 188 74-100 mg/dl Delta: 274 on 03/13/25-1854 CA 8.3 8.4-10.2 mg/dl P-Microalbumin/Creatinine, R andom Urine Sample Reviewed date:02/01/2025 02:38:31 PM Interpretation: Normal Performing Lab: Notes/Report: Test performed by [facility] [place] , [address], [place] [address] Aristeo Reddy MD, Vice President Of Communications CLIA: [id number] Albumin/Creatinine Ratio, Urine 9 0-30 ug/mg Microalbumin, Urine, Random 0.3 Creatinine, Urine 32.6 P-TSH reflex to FT4 Reviewed date:02/01/2025 02:38:31 PM Interpretation: Normal Performing Lab: Notes/Report: Test performed by [facility] [address] [place] [address] , [address], [place] [address] Aristeo Reddy MD, Vice President Of Communications CLIA: [id number] TSH reflex to FT4 1.03 0.43-5.25 mU/L P-Lipid Panel Reviewed date:02/01/2025 02:38:30 PM Interpretation: Normal Performing Lab: Notes/Report: Test performed by [facility], [address] , [address], [place] [address] Aristeo Reddy MD, Vice President Of Communications CLIA: [id number] Cholesterol 106 <200 mg/dL Triglycerides 108 <150 [...] ATPIII guidelines LDL/HDL Ratio 0.5 <3.3 Ratio _ LDL Cholesterol Patient History _ Test Date: 11/03/2023 LDL Results: 37 Units: mg/dL % Change: - - Test Date: 01/26/2025 LDL Results: 29 Units: mg/dL % Change: -21% _ P-Comprehensive Metabolic Pa geovanny (CMP) Reviewed date:02/01/2025 02:38:30 PM Interpretation:gluc 120 Performing Lab: Notes/Report: Test performed by [facility] [address] [place] [address] , [address], [place] [address] Aristeo Reddy MD, Vice President Of Communications CLIA: [id number] Sodium 141 135-145 mmol/L Potassium 3.5 3.5-5.3 [...] 0.4 <0.2-1.2 mg/dL A/G Ratio 1.4 1.1-2.5 Glycohemoglobin A1c (in hous e) Reviewed date:02/01/2025 02:38:31 PM Interpretation:8.2% Performing Lab: Notes/Report: 8.2% glycohemoglobin 8.2% 5 - 6.5 % CBC Venipuncture (in house) Reviewed date:01/26/2025 01:50:32 [...] - 38 platlet 211 100 - 400 Urinalysis - Inhouse Reviewed date:01/26/2025 01:50:25 PM Interpretation: Performing Lab: Notes/Report: Color/Clarity clear Leuk neg Nitrite neg Urobili 3.2 Protein neg pH 7.0 Blood neg Sp. Gr. 1.010 Ketone neg Bili neg Gluc neg P-Comprehensive Metabolic Pa geovanny (CMP) Reviewed date:07/07/2024 12:20:52 PM Interpretation:gluc 108, satisfactory Performing Lab: Notes/Report: Test performed by [facility] [address] [place] [address] , [address], [place] [address] Aristeo Reddy MD, Vice President Of Communications CLIA: [id number] Sodium 138 135-145 mmol/L Potassium 3.9 3.5-5.3 mmol/L Chloride 101 97-108 mmol/L CO2 29 22-32 mmol/L Glucose 108 65-99 mg/dL BUN 15 8-23 mg/dL Creatinine 0.68 0.50-1.00 mg/dL Calcium 9.6 8.6-10.4 mg/dL eGFR by Creatinine 84 >59 mL/min/1.73m2 Protein 6.6 6.0-8.3 g/dL Albumin 4.0 3.5-5.3 g/dL Alkaline Phosphatase 83 35-121 IU/L ALT (SGPT) 15 <5-47 IU/L AST (SGOT) 18 <5-40 IU/L Bilirubin, Total 0.2 <0.2-1.2 mg/dL A/G Ratio 1.5 1.1-2.5 Glycohemoglobin A1c (in hous e) Reviewed date:06/26/2024 01:32:41 PM Interpretation: Performing Lab: Notes/Report: glycohemoglobin 7.2% 5 - 6.5 % Urinalysis - Inhouse Reviewed date:06/26/2024 01:32:32 PM Interpretation: Performing Lab: Notes/Report: Color/Clarity yellow/cloudy Leuk Neg Nitrite Neg Urobili 3.2 Protein Neg pH 8.5 Blood Neg Sp. Gr. 1.020 Ketone Neg Bili Neg Gluc Neg P-TSH reflex to FT4 Reviewed date:03/28/2025 03:22:01 PM Interpretation: Performing Lab: Notes/Report: Test performed by [facility] [address] [place] [address] , [place] [id number] Aristeo Reddy MD, Vice President Of Communications CLIA: [id number] TSH reflex to FT4 0.90 0.43-5.25 mU/L P-Comprehensive Metabolic Pa geovanny (CMP) Reviewed date:03/28/2025 03:22:01 PM Interpretation:glu 123 Performing Lab: Notes/Report: Test performed by [facility] [address] [place] [address] , [place] [address] Aristeo Reddy MD, Vice President Of Communications CLIA: [id number] Sodium 137 135-145 mmol/L Potassium 4.2 3.5-5.3 [...] 0.3 <0.2-1.2 mg/dL A/G Ratio 1.3 1.1-2.5 CBC Venipuncture (in house) Reviewed date:03/21/2025 10:23:00 [...] - 38 platlet 287 100 - 400 P-Surgical Pathology Reviewed date:07/11/2024 11:19:48 AM Interpretation:Squamous cell carcinoma, well differentiated, acantholytic,Squamous cell carcinoma, 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 Skin, left neck, shave biopsy: Squamous cell carcinoma, well differentiated, acantholytic. 2. 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 Vanessa Soto MD electronically signed 07/10/2024 10:00 AM Gross Description: 1. Received in formalin labeled Nicki Melchor neck and consists of a pale fernandes skin shave measuring 1.2 x 0.7 x 0.2 cm. Eccentrically located on the skin surface is a white-fernandes raised lesion measuring 0.6 cm in greatest dimension. The lesion is at the margin. The base is inked blue. The specimen is sectioned and totally submitted in cassette 1A, 01/30. 2. Received in formalin labeled Nicki Melchor cheek and consists of a white-fernandes skin shave measuring 0.8 x 0.7 x 0.1 cm. Eccentrically located on the skin surface is a fernandes-yellow raised lesion measuring 0.4 x 0.4 cm and extending to 0.2 cm from the skin surface. The lesion is less than 0.1 cm from the nearest margin. The base is inked blue. The specimen is sectioned and totally submitted in cassette 2A, 12/02. (MARCUS,KAR,rosa maria) Grossing services provided by [facility] [address] [place], [address] Donte Norman MD, Vice President Of Communications. Microscopic Description: 1. There are nests of atypical squamous epithelium which arise from the epidermis and extend into the underlying dermis. There is surrounding inflammation and fibrosis present. The lesion has an acantholytic growth pattern which can be associated with more aggressive behavior. The lesion is 2.2 mm thick. No definitive perineural or lymphovascular invasion are identified. 2. The shave biopsy specimen shows full-thickness squamous dysplasia with extension around adnexal structures. The features are those of at least squamous cell carcinoma in-situ, but an associated invasive carcinoma cannot be excluded as the lesion is transected above its base. Clinical History: Neoplasm of uncertain behavior, unspecified (D48.9); suspicious lesions of the left neck and left cheek Time of Collection of Tissue: 08:50 Time of Immersion of Tissue in Fixative: 08:50 Specimen List: 1. Suspicious lesion left neck 2. Suspicious lesion left cheek Unless specified otherwise above, the quality of the H and E and any other stains performed is satisfactory, and any internal or external positive and negative controls react appropriately. End of Report Technical services provided by [facility], [facility], d/b/a [address] , [place] [address] Donte Norman MD, Vice President Of Communications. Case reviewed and diagnosis rendered at [facility], [facility], d/b/a [address] , [place] [address] Donte Norman MD, Vice President Of Communications. CONFIDENTIAL Mammogram Reviewed date:11/20/2024 05:05:43 PM Interpretation:Negative, annual f/u Performing Lab: Notes/Report: Negative, annual f/u result Negative, annual f/u Medications Medication SIG (Take, Route, Frequency, Duration) Notes Start Date End Date Status Aspirin 81 MG 1 tablet Orally Once a day for 30 day(s) Active Lisinopril 10 MG TAKE 1 TABLET BY MOUTH EVERY DAY for 90 Active glipiZIDE 5 MG TAKE 1 TABLET BY MOUTH TWICE DAILY for 90 Active Blood Glucose Test Strips 333 - 1 strip In Vitro once a day or as directed 07/18/2024 Active Ondansetron HCl 4 MG 1 tablet Orally abilio ry 8 hours as needed 03/16/2025 Active Furosemide 20 MG TAKE 1 TABLET BY MOUTH EVERY OTHER DAY for 90 Active OneTouch Ultra DIRECTED ONCE A DAY OR DIRECTED 02/13/2013 Active Meclizine HCl 25 MG 1 tablet as needed Orally every 8 hrs 03/16/2025 Active hydroCHLOROthiazide 25 MG TAKE 1 TABLET BY MOUTH DAILY for 90 Active Gabapentin 300 MG 1 cap(s) orally 2 times a day for 30 days 10/31/2024 Active Potassium Chloride Camille ER 2 0 MEQ 1 tab(s) Orally Once a day for 90 days Active metFORMIN HCl 1000 MG TAKE 1 TABLET BY MOUTH TWICE DAILY for 90 Active Meclizine HCl 25 MG 1 tab(s) orally thre e times a day as needed Active Omeprazole 20 MG TAKE 1 CAPSULE BY MOUTH DAILY 30 MINUTES BEFORE BREAKFAST for 30 Active Os-Barron Calcium + D3 500-5 MG-MCG 1 tablet with meals Orally once a day Active Simvastatin 20 MG TAKE 1 TABLET BY MOUTH DAILY AT BEDTIME for 90 Active Immunizations Vaccine Route Administration Date Status Comme nts COVID 19 Moderna Unknown 11/06/2020 Administered COVID 19 Moderna Unknown 12/06/2020 Administered COVID 19 Moderna Unknown 09/02/2021 Administered COVID 19 Moderna Unknown 02/27/2022 Administered Fluzone High Dose (65yr and older) Unknown 06/28/2019 Administered Fluzone High Dose (65yr and older) IM Intramuscular 07/26/2020 Administered Fluzone High Dose (65yr and older) IM Intramuscular 08/18/2021 Administered Fluzone High Dose (65yr and older) IM Intramuscular 08/18/2022 Administered Fluzone High Dose (65yr and older) IM Intramuscular 08/23/2023 Administered Fluzone High Dose (65yr and older) IM Intramuscular 08/18/2024 Administered PNEUMOVAX 23 VACCINE Unknown 04/28/2008 Administered PNEUMOVAX 23 VACCINE Unknown 10/12/2008 Administered Prevnar (PCV13) Unknown 06/27/2014 Administered Prevnar (PCV20) IM Intramuscular 08/28/2024 Administered Shingrix Unknown 05/19/2018 Administered Shingrix Unknown 07/13/2018 Administered Tetanus Dtap-Daptacel (under 7yrs) IM Intramuscular 11/23/2006 Administered Tetanus Tdap-Adacel (over 7yrs) IM Intramuscular 09/29/2017 Administered Zostavax Unknown 04/02/2009 Administered Problems Problem Type SNOMED Code ICD Code Onset Dates Problem Status W/U Status Risk Notes Problem Essential hypertension (10581949) Essential hypertension (I10) Active confirmed Problem Type 2 diabetes mellitus with other specified complication (E11.69) Active confirmed Problem 059947073 Mixed hyperlipidemia (E78.2) Active confirmed Problem 7380974 Goiter (E04.9) Active confirmed Problem 30576908 Lumbar degenerat breezy disc disease (M51.36) Active confirmed Problem 78459087 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) Active confirmed Problem 93945489 Chronic fatigue (R53.82) Active confirmed Problem 685761719 Actinic keratose s (L57.0) Active confirmed Problem T2DM (type 2 diabetes mellitus) (E11.9) Active confirmed Problem 476064046 Squamous cell carcinoma of skin (C44.92) Active confirmed Problem DM - Diabetes mellitus (60807094) DM (diabetes mellitus) (E11.9) Active confirmed Problem 125416672 Altered mental status, unspecified altered mental status type (R41.82) Active confirmed Problem 916877521 Dyslipidemia (E78.5) Active confirmed Problem 340006597 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 Problem 67312162 Postmenopausal (Z78.0) Active confirmed Problem 75313094 Post concussion syndrome (F07.81) Active confirmed Problem 715860672 Seasonal allergi c rhinitis, unspecified trigger (J30.2) Active confirmed Problem 728782439 Squamous cell carcinoma of skin of hand (C44.621) Active confirmed Vital Signs Heart Rate 70 /min 03/21/2025 Blood pressure diastolic 76 mm Hg 03/21/2025 Height 62 in 03/21/2025 Blood pressure systolic 120 mm Hg 03/21/2025 Weight 132.6 lbs 03/21/2025 BMI 24.25 kg/m2 03/21/2025 Encounters Encounter Location Date Provider Diagnosis [facility] [address] [place], [place] [id number] 06/20/2024 Winifred Sosa Toe pain, right M79. 674 [facility] [address] [place], [place] [id number] 06/26/2024 Pipo Fowler T2DM (type 2 diabete s mellitus) E11.9 ; Essential hypertension I10 ; Actinic keratoses L57.0 and ASCVD (arteriosclerotic cardiovascular disease) I25.10 [facility] [address] [place], [place] [id number] 07/06/2024 Staci Kunz Neoplasm of uncertai n behavior of neck D48.7 [facility] [address] [place], [place] [id number] 07/07/2024 Pipo Fowler Squamous cell carcin ariana of skin C44.92 [facility] [address] [place], [place] [id number] 08/18/2024 Pipo Fowler Squamous cell carcin ariana of skin C44.92 ; 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 ; Essential hypertension I10 and Encounter for immunization Z23 [facility] [address] [place], [place] [id number] 08/28/2024 Staci Kunz Encounter for immunization Z23 [facility] [address] [place], [place] [id number] 01/01/2025 Pipo Fowler Actinic keratoses L5 7.0 [facility] [address] [place], [place] [id number] 01/26/2025 Staci Kunz Essential hypertensi on I10 ; DM (diabetes mellitus) E11.9 ; Lumbar degenerative disc disease M51.36 ; Mixed hyperlipidemia E78.2 ; 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 ; Seasonal allergic rhinitis, unspecified trigger J30.2 and Dysuria R30.0 [facility] [address] [place], [place] [id number] 03/21/2025 Staci Kunz Dizziness R42 ; Inju ry of head, subsequent encounter S09.90XD ; Post concussion syndrome F07.81 ; Hypokalemia E87.6 ; Essential hypertension I10 and BMI 24.0-24.9, adult Z68.24 [facility] [address] [place], [place] [id number] 04/02/2025 Maicol Haynes [facility] [address] [place] [id number] 07/11/2024 Pipo Fowler [facility] [address] [place] [id number] 07/18/2024 R Chaim Ivy [facility] [address] [place] [id number] 08/24/2024 R Chaim Ivy [facility] [address] [place] [id number] 10/31/2024 R Chaim Ivy Right hip pain M25.5 51 [facility] [address] [place], [place] [id number] 02/01/2025 Staci Kunz [facility] [address] [place] [id number] 02/02/2025 R Chaim Ivy [facility] [address] [place] [id number] 03/14/2025 R Chaim Ivy [facility] [address] [place] [id number] 03/16/2025 Vikash Hardy [facility] [address] [place] [id number] 03/28/2025 Staci Kunz Assessments Encounter Date Diagnosis (ICD Code) Assessment Notes Treatment Notes Treatment Clinical Notes Section Notes 06/20/2024 Toe pain, right (ICD-10 - M79.674) no pain with filing; will continue with socks with shoes; bandaide for padding prn 06/26/2024 Essential hypertension (ICD-10 - I10) 06/26/2024 T2DM (type 2 diabetes mellitus) (ICD-10 - E11.9) 07/06/2024 Neoplasm of uncertain behavior of neck (ICD-10 - D48.7) Will discuss moving up her procedure with Dr. Fowler. 07/07/2024 Squamous cell carcinoma of skin (ICD-10 - C44.92) 08/18/2024 Arteriosclerotic cardiovascular disease (ASCVD) (ICD-10 - I25.10) 08/18/2024 Squamous cell carcinoma of skin (ICD-10 - C44.92) She should notify us if lesions try to recur prior to her dermatology appointment. 08/28/2024 Encounter for immunization (ICD-10 - Z23) 10/31/2024 Right hip pain (ICD-10 - M25.551) 01/01/2025 Actinic keratoses (ICD-10 - L57.0) 01/26/2025 Essential hypertension (ICD-10 - I10) 01/26/2025 DM (diabetes mellitus) (ICD-10 - E11.9) 03/21/2025 Dizziness (ICD-10 - R42) Holter monitor results still pending. Patient's granddaughter is calling to make a cardiology appt at [facility]. They would also like a neurology appt. 03/21/2025 Injury of head, subsequent encounter (ICD-10 - S09.90XD) Patient continues to have symptoms of post concussive syndrome. Will make neurology referral. She needs continued mental and physical rest. 03/21/2025 Post concussion syndrome (ICD-10 - F07.81) 01/26/2025 Lumbar degenerative disc disease (ICD-10 - M51.36) 08/18/2024 Essential hypertension (ICD-10 - I10) 06/26/2024 Actinic keratoses (ICD-10 - L57.0) 06/26/2024 ASCVD (arteriosclerotic cardiovascular disease) (ICD-10 - I25.10) 08/18/2024 Encounter for immunization (ICD-10 - Z23) 01/26/2025 Mixed hyperlipidemia (ICD-10 - E78.2) 03/21/2025 Hypokalemia (ICD-10 - E87.6) 03/21/2025 Essential hypertension (ICD-10 - I10) 01/26/2025 Arteriosclerotic cardiovascular disease (ASCVD) (ICD-10 - I25.10) 01/26/2025 Seasonal allergic rhinitis, unspecified trigger (ICD-10 - J30.2) 03/21/2025 BMI 24.0-24.9, adult (ICD-10 - Z68.24) 01/26/2025 Dysuria (ICD-10 - R30.0) 03/21/2025 Other Discharge summary with available lab/diagnostic imaging results obtained and reviewed. Discharge medication list reconciled. Appropriate counseling provided. Moderate Complexity Plan Of Treatment Next Appt Details Provider Name:Staci Moise Carlos Albertosoraya kavita, 05/10/2025 09:30:00 AM, [address], [address], [place], [id number], Insurance Providers Payer Name Payer Address Payer Phone Subscriber Number Group Number Insured Name Patient Relationship to Insured Coverage Start Date Coverage End Date MEDICARE PART B [address] [address] [place] [address] [id number] MARILYN MCMULLEN Self - patient is the insured [facility] [address] [place] [address] [id number] MARILYN MCMULLEN Self - patient is the insured Medications Administered Medication Instructions Date of Administration Dosage Notes Depo- Medrol 40 mg/ml 05/31/2008 1 mL Depo- Medrol 40 mg/ml 06/16/2014 1.5 mL Dexamethasone 06/04/2009 1CC Dexamethasone 06/14/2013 Dexamethasone 06/29/2013 Dexamethasone 04/10/2016 1 mL Dexamethasone 02/13/2019 1 mL Dexamethasone 11/17/2022 1 mL Medical (General) History Medical History History ICD Code diabetes mellitis hypertension Surgical History Surgery Date(Month/Year)
--- NOTE | 2025-04-09 14:30 | CA_ITS ---
APPROVED REPORT EXAM: Comprehensive 2D, Doppler, and color-flow Echocardiogram Shower Enclosure Installer: Tavia Reynolds CRT Ht: 5 ft 2 in Wt: 133lbs BSA: 1.61 BP: 171/71 mmHg Indications: ABN EKG Hypertension/HDD 2D Dimensions LA Volume 34.20 mL LA Volume Index 20.70 mL/m2 (M/F) 16-34 M-Mode Dimensions RVDd 1.48 cm (0.9-2.6) LA Diam 3.30 cm (1.9-4.0) LVDd 4.52 cm (3.5-5.7) LVDs 2.70 cm (3.5-5.7) IVSd 1.45 cm (0.6-1.1) PWd 0.70 cm (0.6-1.1) EF (Teich) 71.10% FS 40.30% EDV (Teich) 93.40 mL TAPSE 2.98 (<1.7) ESV (Teich) 27.00 mL LV Diastology E Decel Time 230 (160-240 msec) E/A Ratio 0.70 MED A' 14.30 cm/s LAT A' 13.60 cm/s Aortic Valve AO Peak GR. 9.50 mmHg Mitral Valve MV E Max Bla. 76.0 (40-130 cm/s) MV A Velocity 109.0 (40-130 cm/s) E/A Ratio 0.70 MV PHT 67.0 ms Pulmonary Valve PV Peak Velocity 162.0 (50-150 cm/s) Tricuspid Valve TR P. Velocity 394.00 cm/s RAP Estimate 10.00 mmHg RVSP 72.00 mmHg Left Ventricle The left ventricle is normal size. The left ventricular systolic function is normal. The left ventricular ejection fraction is within the normal range. Proximal septal thickening is present. There is normal LV segmental wall motion. The left ventricular diastolic function is normal. LVEF is 55%. Right Ventricle The right ventricle is normal size. The right ventricular systolic function is normal. Atria The left atrium size is normal. The right atrium size is normal. There is no Doppler evidence of interatrial shunt. Aortic Valve The aortic valve is mildly thickened. There is no aortic valvular stenosis. Trace aortic regurgitation. Mitral Valve The mitral valve is normal in structure. No evidence of mitral valve stenosis. Mild mitral regurgitation. Tricuspid Valve Tricuspid valve is grossly normal in structure and function. Mild tricuspid regurgitation. RVSP is 20-25 mmHg. Pulmonic Valve The pulmonary valve is normal in structure. Trace pulmonic regurgitation. Great Vessels The aortic root is normal in size. IVC is normal in size and collapses >50% with inspiration. Pericardium There is no pericardial effusion. Other Information Study Quality: Fair Conclusion Normal biventricular systolic function. Mild MR, mild TR. Electronically signed by : Noris Singh MD 04/19/2025 00:05:44
== END 2025-04-09 23:59 | disposition home or self-care (01) ==
LOC: RAD 13:20
PROVIDERS: PCP Family Medicine; Visit Provider Physician Assistant
DX: I08.1 Rheumatic disorders of both mitral and tricuspid valves (principal); E04.1 Nontoxic single thyroid nodule; E87.6 Hypokalemia; I10 Essential (primary) hypertension; R94.31 Abnormal electrocardiogram [ECG] [EKG]; R55 Syncope and collapse
CPT/HCPCS: 76536; 93306

== ENCOUNTER 2025-04-10 06:54 | Outpatient (CLI) | payer MEDICARE, BC, SELFPAY ==
--- OUTSIDE RECORDS SUMMARY | 2025-01-01 11:30 | XMS_ITS ---
Author Organization [facility] Address [address] [facility] [address] [place] [id number] Care Team Providers Care Compacting Machine Operator/Tender Name Role Phone Maicol Haynes Primary Care Provider Pipo Fowler Unavailable [phone] Allergies No Known Allergies REASON FOR VISIT [...] prn for inner ear Active Vital Signs Weight 135.6 lbs 01/01/2025 Blood pressure systolic 180 mm Hg 01/02/20 25 Blood pressure diastolic 80 mm Hg 025 Heart Rate 62 /min 01/01/2025 Height 62 in 01/01/2025 BMI 24.80 kg/m2 01/01/2025 Encounters Encounter Location Date Provider Diagnosis [facility] [address] [place], [place] [id number] 01/01/2025 Pipo Fowler Actinic keratoses L57.0 Assessments Encounter Date Diagnosis (ICD Code) Assessment Notes Treatment Notes Treatment Clinical Notes Section Notes 01/01/2025 Actinic keratoses (ICD-10 - L57.0) Plan Of Treatment Next Appt Details Follow Up: prn, Reason: Provider Name:Staci walls, 05/10/2025 09:30:00 AM, [address], [address], [place], [id number], Procedure Notes * Category Sub-Category Detail Notes [...] :1935 A ge:89 Y S ex:Female Date:01/01/2025 Address:[address] [place] [address], [id number] Pcp:Maicol Haynes Subjective: * Chief Complaints: * [...] 7000 DESTRUCTION BENIGN LESION, CRYOSURGERY,ELECTROSURGERY FIRST LESION, 48819 DESTRUCTION BENIGN LESION,CRYO, ELECTRO, 2-14 LESIONS * Follow Up: p rn * Billing Information: * Visit Code: 71739 Office Visit, Est Pt., Level 3. Modifiers: 25 * Procedure Codes: 36579 DESTRUCTION BENIGN LESION, CRYOSURGERY,ELECTROSURGERY FIRST LESION. 13365 DESTRUCTION BENIGN LESION,CRYO, ELECTRO, 2-14 LESIONS. * Electronic signature of Pipo Fowler MD on 04/10/2025 at 06:57 AM EDT Sign off status: Pending * Provider: Pipo Fowler M.D. Date: 0 01/01/2025 Generated for Leroy guzman/Marisa/Ignacioitting on: 0 04/10/2025 06:57 AM EDT History and Physical Notes * HPI (History of Present Illness) Category Sub-Category Detail Notes Category Not es Dermatology skin lesion Examination Category Sub-Category Detail Notes Category Not es General Examination Extremities: dorsum of le ft hand at 4th MP joint, small cutaneous horn Chest: raised 7mm lesion of the midchest with a small eschar.
--- OUTSIDE RECORDS SUMMARY | 2025-01-26 06:15 | XMS_ITS ---
Author Organization [facility] Address 1210 [facility] [address] [place] [id number] Care Team Providers Care Braiding Machine Tender Name Role Phone Maicol Haynes Primary Care Provider Carlos AlbertoRyan arguelloa Unavailable [phone] Allergies No Known Allergies Results Component Value [...] 120 Performing Lab: Notes/Report: Test performed by [facility] [address] [place] [address] , [address], [place] [address] Aristeo Reddy MD, Media Liaison Officer CLIA: [id number] Sodium 141 135-145 mmol/L Potassium 3.5 3.5-5.3 [...] Normal Performing Lab: Notes/Report: Test performed by [facility] [address] [place] [address] , [address], [place] [address] Aristeo Reddy MD, Media Liaison Officer CLIA: [id number] Cholesterol 106 <200 mg/dL Triglycerides 108 <150 [...] Normal Performing Lab: Notes/Report: Test performed by [facility] [address] [place] [address] [place] [address] Aristeo Reddy MD, Media Liaison Officer CLIA: [id number] TSH reflex to FT4 1.03 0.43-5.25 mU/L P-Microalbumin/Creatinine, R andom Urine Sample Reviewed date:02/01/2025 02:38:31 PM Interpretation: Normal Performing Lab: Notes/Report: Test performed by [facility] [address] [place] [address] , [place] [address] Aristeo Reddy MD, Media Liaison Officer CLIA: [id number] Albumin/Creatinine Ratio, Urine 9 0-30 ug/m g [...] once a day for 30 days Active glipiZIDE 5 MG TAKE 1 TABLET BY MOUTH TWICE DAILY for 90 days Active OneTouch Ultra DIRECTED ONCE A DAY OR DIRECTED 02/13/2013 Active Meclizine HCl 25 MG 1 tab(s) orally ac and hs prn for inner ear Active Omeprazole 20 MG TAKE 1 CAPSULE BY MOUTH DAILY 30 MINUTES BEFORE BREAKFAST for 30 Active Os-Barron Calcium + D3 500-5 MG-MCG 1 tablet with meals Orally once a day Active Aspirin 81 MG 1 tablet Orally Once a day for 30 day(s) Active Furosemide 20 MG TAKE 1 TABLET BY MOUTH EVERY OTHER DAY for 90 Active hydroCHLOROthiazide 25 MG TAKE 1 TABLET BY MOUTH DAILY for 90 Active Lisinopril 10 MG TAKE 1 TABLET BY MOUTH EVERY DAY for 90 Active Simvastatin 20 MG 1 tab(s) orally once a day (at bedtime) for 90 days Active Potassium Chloride Camille ER 2 0 MEQ 1 tab(s) Orally Once a day for 90 days Active Gabapentin 300 MG 1 cap(s) orally 2 times a day for 30 days 10/31/2024 Active metFORMIN HCl 1000 MG TAKE 1 TABLET BY MOUTH TWICE DAILY for 90 Active Vital Signs Weight 136.0 lbs 01/26/2025 Blood pressure systolic 150 mm Hg 01/27/20 25 Blood pressure diastolic 66 mm Hg 025 Heart Rate 67 /min 01/26/2025 Height 62 in 01/26/2025 BMI 24.87 kg/m2 01/26/2025 Encounters Encounter Location Date Provider Diagnosis [facility] [address] [facility] [address] [place], [place] [id number] 01/26/2025 Staci Kunz Essential hypertensi on I10 [...] phone to repo rt test results, Reason: Provider Name:Staci walls, 05/10/2025 09:30:00 AM, [address], [address] , [place], [place], [id number], Progress Notes * MARILYN MCMULLENDOB:[birth year] (89 yo F)Acc No.[id number]:01/26/2025 Progress Notes Patient: NATAN SLADETIE Provider: CORNELIUS Liz :1935 A ge:89 Y S ex:Female Date:01/26/2025 Address:[address] [place], [place] [id number] Pcp:Maicol Haynes Subjective: * Chief Complaints: * [...] G eneral Examination: General Appearance: N AD. HEENT: u nremarkable. Oral cavity: n o lesions, mucosa moist and WNL, no erythema. Neck: s upple, no lymphadenopathy. Chest: n ormal shape and expansion. Heart: R SR. Lungs: c lear to auscultation. Abdomen: bowel sounds present, soft and nontender, no organomegaly or masses, no guarding or rigidity. Neurologic Exam: I ntact, gait normal. Skin: n ormal, no rash. Peripheral pulses: n ormal (2+) bilaterally. Extremities: n o leg edema. Assessment: * Assessment: [...] G 2211 Complex e/[place], [address] GLYCATED HEMOGLOBIN TEST, Modifiers: QW , [address]34 CBC WITH AUTO DIFF, 79820 Urinalysis, no micro, 3052F HG A1C>EQUAL 8.0%<EQUAL 9.0%, G8752 MOST RECENT SYSTOLIC BP < 140MM HG, G8754 MOST RECENT DIASTOLIC BP < 90MM HG * Follow Up: v ia phone to report test results * Billing Information: * Visit Code: 85879 Office Visit, Est Pt., Level 4. * Procedure Codes: G2211 Complex e/[place]. [address] GLYCATED HEMOGLOBIN TEST. Modifiers: QW 21364 CBC WITH AUTO DIFF. 30334 Urinalysis, no micro. 3052F HG A1C>EQUAL 8.0%<EQUAL 9.0%. G8752 MOST RECENT SYSTOLIC BP < 140MM HG. G8754 MOST RECENT DIASTOLIC BP < 90MM HG. * Electronic signature of CORNELIUS Chery on 04/10/2025 at 06:57 AM EDT Sign off status: Pending * Provider: CORNELIUS Liz Date: 0 01/26/2025 Generated for Leroy guzman/Marisa/eTransmitting on: 0 04/10/2025 06:57 AM EDT History [...]
--- OUTSIDE RECORDS SUMMARY | 2025-03-21 11:15 | XMS_ITS ---
[facility] Address [address] [facility] [address] [place], [place] [id number] Care Team Providers Care Pocket Maker Name Role Phone Maicol Haynes Primary Care Provider Carlos AlbertoRyan arguelloa Unavailable [phone] Allergies No Known Allergies Results Component Value Reference Range Notes CBC Venipuncture (in house) Reviewed date:03/21/2025 10:23:00 PM Interpretation: Performing Lab: Notes/Report: wbc 7.1 3.5 - 10 lymph 34.8% 15 - 50 mid 6.6% 2 - 15 gran 58.6% 35 - 80 rbc 4.59 3.5 - 5.5 hgb 13.5 11.5 - 16.5 hct 40.1 35 - 55 mcv 87.3 75 - 100 mch 29.4 25 - 35 mchc 33.7 31 - 38 platlet 287 100 - 400 P-Comprehensive Metabolic Pa geovanny (CMP) Reviewed date:03/28/2025 03:22:01 PM Interpretation:glu 123 Performing Lab: Notes/Report: Test performed by [facility] , [address], [place] [address] Aristeo Reddy MD, Executive Secretary Social Welfare CLIA: [id number] Sodium 137 135-145 mmol/L Potassium 4.2 3.5-5.3 mmol/L Chloride 98 97-108 mmol/L CO2 27 22-32 mmol/L Glucose 123 65-99 mg/dL BUN 15 8-23 mg/dL Creatinine 0.70 0.50-1.00 mg/dL Calcium 9.8 8.6-10.4 mg/dL eGFR by Creatinine 83 >59 mL/min/1.73m2 Protein 7.6 6.0-8.3 g/dL Albumin 4.3 3.5-5.3 g/dL Alkaline Phosphatase 96 35-121 IU/L ALT (SGPT) 15 <5-47 IU/L AST (SGOT) 14 <5-40 IU/L Bilirubin, Total 0.3 <0.2-1.2 mg/dL A/G Ratio 1.3 1.1-2.5 P-TSH reflex to FT4 Reviewed date:03/28/2025 03:22:01 PM Interpretation: Performing Lab: Notes/Report: Test performed by [employer] [address] , [facility], [place] [address] Aristeo Reddy MD, Executive Secretary Social Welfare CLIA: [id number] TSH reflex to FT4 0.90 0.43-5.25 mU/L Reason For Referral Diagnosis 1 Injury of head, subs equent encounter (S09.90XD) Diagnosis 2 Dizziness (R42) Diagnosis 3 Post concussion synd fadi (F07.81) [facility] Referring Provider First Name Staci Referring Provider Last Name Ze Referring Provider Speciality Physician Corporate Administrator Referred Provider Specialty Neurology General Notes Staci Kunz 03:33:05 PM >Pt needs an appt with Dr. Allen in [place] 03/21/2025 3:51:42 PM > faxed all documents to Dr. Newsome's office Referral Priority Routine REASON FOR VISIT F/U [facility] Medications Medication SIG (Take, Route, Frequency, Duration) Notes Start Date End Date Status Lisinopril 10 MG TAKE 1 TABLET BY MOUTH EVERY DAY for 90 Active glipiZIDE 5 MG TAKE 1 TABLET BY MOUTH TWICE DAILY for 90 Active Ondansetron HCl 4 MG 1 tablet Orally abilio ry 8 hours as needed 03/16/2025 Active Meclizine HCl 25 MG 1 tablet as needed Orally every 8 hrs 03/16/2025 Active Simvastatin 20 MG TAKE 1 TABLET BY MOUTH DAILY AT BEDTIME for 90 Active Gabapentin 300 MG 1 cap(s) orally 2 times a day for 30 days 10/31/2024 Active Furosemide 20 MG TAKE 1 TABLET BY MOUTH EVERY OTHER DAY for 90 Active metFORMIN HCl 1000 MG TAKE 1 TABLET BY MOUTH TWICE DAILY for 90 Active Omeprazole 20 MG TAKE 1 CAPSULE BY MOUTH DAILY 30 MINUTES BEFORE BREAKFAST for 30 Active hydroCHLOROthiazide 25 MG TAKE 1 TABLET BY MOUTH DAILY for 90 Active Aspirin 81 MG 1 tablet Orally Once a day for 30 day(s) Active Blood Glucose Test Strips 333 - 1 strip In Vitro once a day or as directed 07/18/2024 Active OneTouch Ultra DIRECTED ONCE A DAY OR DIRECTED 02/13/2013 Active Potassium Chloride Camille ER 2 0 MEQ 1 tab(s) Orally Once a day for 90 days Active Os-Barron Calcium + D3 500-5 MG-MCG 1 tablet with meals Orally once a day Active Meclizine HCl 25 MG 1 tab(s) orally thre e times a day as needed Active Problems Problem Type SNOMED Code ICD Code Onset Dates Problem Status W/U Status Risk Notes Problem [id number] Post concussion syndrome (F07.81) Active confirmed Vital Signs Weight 132.6 lbs 03/21/2025 Blood pressure systolic 120 mm Hg 03/21/20 25 Blood pressure diastolic 76 mm Hg 025 Heart Rate 70 /min 03/21/2025 Height 62 in 03/21/2025 BMI 24.25 kg/m2 03/21/2025 Encounters Encounter Location Date Provider Diagnosis [facility] [address] [id number] 03/21/2025 Staci Kunz Dizziness R42 ; Inju ry of head, subsequent encounter S09.90XD ; Post concussion syndrome F07.81 ; Hypokalemia E87.6 ; Essential hypertension I10 and BMI 24.0-24.9, adult Z68.24 Assessments Encounter Date Diagnosis (ICD Code) Assessment Notes Treatment Notes Treatment Clinical Notes Section Notes 03/21/2025 Dizziness (ICD-10 - R42) Holter monitor results still pending. Patient's granddaughter is calling to make a cardiology appt at [facility]. They would also like a neurology appt. 03/21/2025 Injury of head, subsequent encounter (ICD-10 - S09.90XD) Patient continues to have symptoms of post concussive syndrome. Will make neurology referral. She needs continued mental and physical rest. 03/21/2025 Post concussion syndrome (ICD-10 - F07.81) 03/21/2025 Hypokalemia (ICD-10 - E87.6) 03/21/2025 Essential hypertension (ICD-10 - I10) 03/21/2025 BMI 24.0-24.9, adult (ICD-10 - Z68.24) 03/21/2025 Other Discharge summa with available lab/diagnostic imaging results obtained and reviewed. Discharge medication list reconciled. Appropriate counseling provided. Moderate Complexity Plan Of Treatment Medication Medication Name Sig Start Date Stop Date Notes Meclizine HCl 25 MG 1 tab(s) orally thre e times a day as needed Treatment Notes Assessment Notes Dizziness Holter monitor resul ts still pending. Patient's granddaughter is calling to make a cardiology appt at [facility]. They would also like a neurology appt. Injury of head, subsequent encounter Pat dileep continues to have symptoms of post concussive syndrome. Will make neurology referral. She needs continued mental and physical rest. Other Discharge summary wi available lab/diagnostic imaging results obtained and reviewed. Discharge medication list reconciled. Appropriate counseling provided. Moderate Complexity Referrals Referral Date Details 03/21/2025 03/21/2025 Next Appt Details Follow Up: via phone to repo rt test results, Reason: Provider Name:Staci Haro y, 05/10/2025 09:30:00 AM, [address], [address], [place], [place], [id number], Progress Notes * MARILYN MCMULLENDOB:[birth year] (89 yo F)Acc No.[id number]:03/21/2025 Patient: Kamilah MARILYN BRADSHAW Provider: CORNELIUS Liz :1935 A ge:89 Y S ex:Female Date:03/21/2025 Address:[address] [place] [address], [id number] Pcp:Maicol Haynes Subjective: * Chief Complaints: * 1 . F/U [facility]. * HPI: H PI: Patient is here today for a Transition of Care Visit. Discharge from the following Facility: [facility],Discharge date: 03/14/2025,Date of phone contact following discharge: 03/16/2025. Pt sts that she is still having some dizzy spells and issues with vertigo. * ROS: C ARDIOLOGY: no C hest [...] tablet Orally Once a day , Taking OneTouch Ultra DIRECTED ONCE A DAY OR DIRECTED , Taking Blood Glucose Test Strips 333 - Strip 1 strip In Vitro once a day or as directed , Taking Potassium Chloride Camille ER 20 [...] MOUTH DAILY 30 MINUTES BEFORE BREAKFAST , Taking Simvastatin 20 MG Tablet TAKE 1 TABLET BY MOUTH DAILY AT BEDTIME , Taking glipiZIDE 5 MG Tablet TAKE 1 TABLET BY MOUTH TWICE DAILY , Taking Lisinopril 10 MG Tablet TAKE 1 TABLET BY MOUTH EVERY DAY , Taking Meclizine HCl 25 MG Tablet 1 tablet as needed Orally every 8 hrs , Taking Ondansetron HCl 4 MG Tablet 1 tablet Orally every 8 hours as needed , Medication List reviewed and reconciled with the patient * Allergies: N .K.D.A. Objective: * Vitals: W t: 132.6, Temp: 97.7, BP: 120/76, HR: 70, Nurse: LYDIA, Ht: 62, BMI:24.25. * Examination: G eneral Examination: General Appearance: N AD. HEENT: sclera and conjunctiva clear, PERRLA, TM's normal, translucent, EOM's with normal ROM. Oral cavity: n o lesions, mucosa moist and WNL, no erythema. Neck: s upple, no lymphadenopathy. Chest: n ormal shape and expansion. Heart: R SR. Lungs: c lear to auscultation. Abdomen: bowel sounds present, soft and nontender, no organomegaly or masses, no guarding or rigidity. Neurologic Exam: alert and oriented, normal cranial nerves II-XII sensory & motor WNL, unsteady on Rhomberg. Skin: n ormal, no rash. Peripheral pulses: n ormal (2+) bilaterally. Extremities: n o leg edema. Assessment: * Assessment: 1. D izziness - R42 (Primary) 2 . I njury of head, subsequent encounter - S09.90XD 3 . P ost concussion syndrome - F07.81 4 . H ypokalemia - E87.6 5 . E ssential hypertension - I10 6 . B AL 24.0-24.9, adult - Z68.24 Plan: * Treatment: Value Reference Range T SH reflex to FT4 0.90 0.43-5.25 - mU/L * Makayla Brown 03/28/2025 03: 21:54 PM > See phone encounter Notes: Holter monitor results still pending. Patient's granddaughter is calling to make a cardiology appt at [facility]. They would also like a neurology appt.? Referral To:Neurology ?Reason: 2.?Injury of head, subsequent encounter? Notes: Patient continues to have symptoms of post concussive syndrome. Will make neurology referral. She needs continued mental and physical rest. ?&#160 ;? Referral To:Neurology ?Reason: 3.?Post concussion syndrome?LAB: CBC Venipuncture (in house) (Collection Date & Time - 03/21/2025)* Value Reference Range w bc 7.1 3.5 - 10 * l ymph 34.8% 15 - 50 * m id 6.6% 2 - 15 * g ran 58.6% 35 - 80 * r bc 4.59 3.5 - 5.5 * h gb 13.5 11.5 - 16.5 * h ct 40.1 35 - 55 * m cv 87.3 75 - 100 * m ch 29.4 25 - 35 * m chc 33.7 31 - 38 * p latlet 287 100 - 400 * Dolly Zamorano 03/21/2025 04 :24:05 PM > ? Referral To:Neurology ?Reason: 4.?Hypokalemia?LAB: P-Comprehensive Metabolic Panel (CMP) (Collection Date & Time - 03/21/2025 02:59 PM)?glu 123* Value Reference Range A /G Ratio 1.3 1.1-2.5 - * A lbumin 4.3 3.5-5.3 - g/dL * A lkaline Phosphatase 96 35-121 - IU/L * A LT (SGPT) 15 <5-47 - IU/L * A ST (SGOT) 14 <5-40 - IU/L * B ilirubin, Total 0.3 <0.2-1.2 - mg/dL * B UN 15 8-23 - mg/dL * C alcium 9.8 8.6-10.4 - mg/dL * C hloride 98 97-108 - mmol/L * C O2 27 22-32 - mmol/L * C reatinine 0.70 0.50-1.00 - mg/dL * G lucose 123 H 65-99 - mg/dL * P otassium 4.2 3.5-5.3 - mmol/L * S odium 137 135-145 - mmol/L * P rotein 7.6 6.0-8.3 - g/dL * e GFR by Creatinine 83 >59 - mL/min/1.73m2 * Makayla Brown 03/28/2025 03: 21:54 PM > See phone encounter 5.?Others? Notes: Discharge summary with available lab/diagnostic imaging results obtained and reviewed. Discharge medication list reconciled. Appropriate counseling provided. Moderate Complexity?? * Procedure Codes: 9 9495 TRANS CARE MGMT 14 DAY DISCH, 1111F DSCHR MED/CURENT MED MERGE, G2211 Complex [place], [address] CBC WITH AUTO DIFF, G8420 BMI<30 AND >=22 CALC & DOCU, G8752 MOST RECENT SYSTOLIC BP < 140MM HG, G8754 MOST RECENT DIASTOLIC BP < 90MM HG * Follow Up: v ia phone to report test results * Billing Information: * Visit Code: 76849 Office Visit, Est Pt., Level 4. * Procedure Codes: 14912 TRANS CARE MGMT 14 DAY DISCH. 1111F DSCHR MED/CURENT MED MERGE. G2211 Complex e/[place] [address] CBC WITH AUTO DIFF. G8420 BMI<30 AND >=22 CALC & DOCU. G8752 MOST RECENT SYSTOLIC BP < 140MM HG. G8754 MOST RECENT DIASTOLIC BP < 90MM HG. * Electronic signature of CORNELIUS Chery on 04/10/2025 at 06:58 AM EDT Sign off status: Pending * Provider: CORNELIUS Liz Date: 0 03/21/2025 Generated for Leroy ng/Fafransiscag/eTransmitting on: 0 04/10/2025 06:58 AM EDT History and Physical Notes * HPI (History of Present Illness) Category Sub-Category Detail Notes Category Not es HPI Patient is here today for a [facility] sition of Care Visit. Discharge from the following Facility: [facility],Discharge date: 03/14/2025,Date of phone contact following discharge: 03/16/2025. Pt sts that she is still having some dizzy spells and issues with vertigo Examination Category Sub-Category Detail Notes Category Not es General Examination HEENT: sclera and c onjunctiva clear, PERRLA, TM's normal, translucent, EOM's with normal ROM Heart: RSR Lungs: clear to auscultatio n Abdomen: bowel sounds present , soft and nontender, no organomegaly or masses, no guarding or rigidity Extremities: no leg edema General Appearance: NAD Skin: normal, no rash Neurologic Exam: alert and oriented, normal cranial nerves II-XII sensory & motor WNL, unsteady on Rhomberg Neck: supple, no lymphaden opathy Oral cavity: no lesions, mucosa m oist and WNL, no erythema Peripheral pulses: normal (2+) bilatera lly Chest: normal shape and exp ansion Consultation Request Notes Referral Date Referring Provider Referred Provider Not es 03/21/2025 Staci Kunz ,
--- NOTE | 2025-04-10 | CA_ITS ---
APPROVED REPORT Exam: Pharmacologic Technologist: Kamla Hidalgo Ht: 5 ft 2 in Wt: 133 lbs BSA: 1.61 m2 HR: 58 bpm BP: 184/77 mmHg Rhythm: Sr Medical History Medical History: HTN, Hyperlipidemia, Diabetes Medications: Aspirin, Furosemide, Gabapentin, Glipizide ER, Hydralazine, Hydrochlorothiazide, Lisinopril, Meclizine, Metformin, Multivitamin, Potassium Chloride ER, Simvastatin, Zinc, Vit D3, Vit B12 Allergies: No known drug allergies Cardiac Risk Factors: HTN, Hyperlipidemia, Diabetes Stress Test Details Test: Lexiscan HR Resting HR: 58 bpm Max Heart Rate (APMHR): [phone] bpm Target HR (85% APMHR): 112.862099 bpm Recovery HR: 80 bpm BP Resting BP: 184.0/77.0 mmHg Max BP: 184.0/77.0 mmHg Recovery BP: 166.0/75.0 mmHg ECG Resting ECG: Sr Stress ECG Conclusion Less than 1mm st depression Ekg unremarkable due to lexiscan infusion Electronically signed by : Noris Singh MD 04/10/2025 13:49:14
--- OUTSIDE RECORDS SUMMARY | 2025-04-10 06:57 | XMS_ITS | Patient Health Record ---
Author Organization [facility] Address [address] [facility] [address] [place] [id number] Care Team Providers Care Diamond Broker Name Role Phone Maicol Haynes Primary Care Provider Pipo Fowler Unavailable [phone] Vikash Victoria Unavailable [phone] Winifred Sosa Unavailable [phone] Staci Kunz Unavailable [phone] Allergies No Known Allergies Results Component Value Reference Range Notes P-Microalbumin/Creatinine, R andom Urine Sample Reviewed date:02/01/2025 02:38:31 PM Interpretation: Normal Performing Lab: Notes/Report: Test performed by [facility] [address] [place] [address] , [address], [place] [address] Aristeo Reddy MD, Risk Assessment Consultant CLIA: [id number] Albumin/Creatinine Ratio, Urine 9 0-30 ug/mg Microalbumin, Urine, Random 0.3 Creatinine, Urine 32.6 P-TSH reflex to FT4 Reviewed date:02/01/2025 02:38:31 PM Interpretation: Normal Performing Lab: Notes/Report: Test performed by [facility] [address] [place] [address] , [address], [place] [address] Aristeo Reddy MD, Risk Assessment Consultant CLIA: [id number] TSH reflex to FT4 1.03 0.43-5.25 mU/L P-Lipid Panel Reviewed date:02/01/2025 02:38:30 PM Interpretation: Normal Performing Lab: Notes/Report: Test performed by [facility] [address] [facility] [address], [place] [address] Aristeo Reddy MD, Risk Assessment Consultant RIGO: [id number] Cholesterol 106 <200 mg/dL Triglycerides 108 <150 [...] 120 Performing Lab: Notes/Report: Test performed by [facility] [employer] [address] [place] [address] , [address], [place] [address] Aristeo Reddy MD, Risk Assessment Consultant CLIA: [id number] Sodium 141 135-145 mmol/L Potassium 3.5 3.5-5.3 [...] 0.4 <0.2-1.2 mg/dL A/G Ratio 1.4 1.1-2.5 CBC Venipuncture (in house) Reviewed date:01/26/2025 01:50:32 [...] 1.010 Ketone neg Bili neg Gluc neg Urinalysis - Inhouse Reviewed date:06/26/2024 01:32:32 PM Interpretation: Performing Lab: Notes/Report: Color/Clarity yellow/cloudy Leuk Neg Nitrite Neg Urobili 3.2 Protein Neg pH 8.5 Blood Neg Sp. Gr. 1.020 Ketone Neg Bili Neg Gluc Neg Glycohemoglobin A1c (in hous e) Reviewed date:06/26/2024 01:32:41 PM Interpretation: Performing Lab: Notes/Report: glycohemoglobin 7.2% 5 - 6.5 % P-Comprehensive Metabolic Pa geovanny (CMP) Reviewed date:07/07/2024 12:20:52 PM Interpretation:gluc 108, satisfactory Performing Lab: Notes/Report: Test performed by [facility] , [address], [place] [address] Aristeo Reddy MD, Risk Assessment Consultant CLIA: [id number] Sodium 138 135-145 mmol/L Potassium 3.9 3.5-5.3 [...] 0.2 <0.2-1.2 mg/dL A/G Ratio 1.5 1.1-2.5 Mammogram Reviewed date:11/20/2024 05:05:43 PM Interpretation:Negative, annual f/u Performing Lab: Notes/Report: Negative, annual f/u result Negative, annual f/u H-BMP Reviewed date:03/16/2025 12:43:50 PM Interpretation: Performing Lab: Notes/Report: HELD OFF ON LAST TROPONIN PER BHIMES, PT WAS DISORIENTED NA 132 136-145 mmol/L K 3.2 3.5-5.1 mmoL/L CL 98 98-107 mmol/L CO2 28 22.0-30.0 mmol/L GAP 9.2 5-15 mEq/L BUN 10 7-17 mg/dl CREATT 0.60 0.52-1.04 mg/dl CRCLE 46 50-200 mL/min GFRAA 114 >60 ML/MIN EGFR 94 >60 ml/min GLU 274 74-100 mg/dl CA 8.3 8.4-10.2 mg/dl H-BMP Reviewed date:03/16/2025 12:43:50 PM Interpretation: Performing [...] 274 on 03/13/25-1854 CA 8.3 8.4-10.2 mg/dl H-CBC Reviewed date:03/16/2025 [...] 0.0 0-0.2 K/mm3 NRBC# 0 IG# 0.01 Glycohemoglobin A1c (in hous e) Reviewed date:02/01/2025 02:38:31 PM Interpretation:8.2% Performing Lab: Notes/Report: 8.2% glycohemoglobin 8.2% 5 - 6.5 % CBC Venipuncture (in house) Reviewed date:03/21/2025 10:23:00 [...] 123 Performing Lab: Notes/Report: Test performed by [facility] , [address], [place] [address] Aristeo Reddy MD, Risk Assessment Consultant CLIA: [id number] Sodium 137 135-145 mmol/L Potassium 4.2 3.5-5.3 [...] Interpretation: Performing Lab: Notes/Report: Test performed by [facility] [address] [place] [address] , [address], [place] [address] Aristeo Reddy MD, Risk Assessment Consultant CLIA: [id number] TSH reflex to FT4 0.90 0.43-5.25 mU/L P-Surgical Pathology Reviewed date:07/11/2024 11:19:48 AM Interpretation:Squamous [...] and totally submitted in cassette 2A, 12/02. (MILEYG,[email or web address],mbj) Grossing services provided by [facility], [facility], d/b/a [address] [place], [address] Donte Norman MD, Risk Assessment Consultant. Microscopic Description: 1. There are nests of [...] End of Report Technical services provided by [facility], [facility], d/b/a [facility], [address] [place] [address] , [place] [address] Donte Norman MD, Risk Assessment Consultant. Case reviewed and diagnosis rendered at [facility], [facility], d/b/a [address] , [place] [address] Donte Norman MD, Risk Assessment Consultant. CONFIDENTIAL Medications Medication SIG (Take, Route, Frequency, Duration) [...] Vaccine Route Administration Date Status Comme nts Zostavax Unknown 04/02/2009 Administered Tetanus Tdap-Adacel (over 7yrs) IM Intramuscular 09/29/2017 Administered Tetanus Dtap-Daptacel (under 7yrs) IM Intramuscular 11/23/2006 Administered Shingrix Unknown 05/19/2018 Administered Shingrix Unknown 07/13/2018 Administered Prevnar (PCV20) IM Intramuscular 08/28/2024 Administered Prevnar (PCV13) Unknown 06/27/2014 Administered PNEUMOVAX 23 VACCINE Unknown 04/28/2008 Administered PNEUMOVAX 23 VACCINE Unknown 10/12/2008 Administered Fluzone High Dose (65yr and older) Unknown 06/28/2019 Administered Fluzone High Dose (65yr and older) IM Intramuscular 07/26/2020 Administered Fluzone High Dose (65yr and older) IM Intramuscular 08/18/2021 Administered Fluzone High Dose (65yr and older) IM Intramuscular 08/18/2022 Administered Fluzone High Dose (65yr and older) IM Intramuscular 08/23/2023 Administered Fluzone High Dose (65yr and older) IM Intramuscular 08/18/2024 Administered COVID 19 Moderna Unknown 11/06/2020 Administered COVID 19 Moderna Unknown 12/06/2020 Administered COVID 19 Moderna Unknown 09/02/2021 Administered COVID 19 Moderna Unknown 02/27/2022 Administered Problems Problem Type SNOMED Code ICD Code Onset Dates Problem Status W/U Status Risk Notes Problem Essential hypertension (58968650) Essential hypertension (I10) Active confirmed Problem Type 2 diabetes mellitus with other specified complication (E11.69) Active confirmed Problem 858343940 Mixed hyperlipidemia (E78.2) Active confirmed Problem 0080756 Goiter (E04.9) Active confirmed Problem 92649901 Lumbar degenerat breezy disc disease (M51.36) Active confirmed Problem 99695690 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) Active confirmed Problem 91207205 Chronic fatigue (R53.82) Active confirmed Problem 017799008 Actinic keratose s (L57.0) Active confirmed Problem Type II diabetes mellitus without complication (815314826) T2DM (type 2 diabetes mellitus) (E11.9) Active confirmed Problem 130656054 Squamous cell carcinoma of skin (C44.92) Active confirmed Problem DM - Diabetes mellitus (57257759) DM (diabetes mellitus) (E11.9) Active confirmed Problem 917270046 Altered mental status, unspecified altered mental status type (R41.82) Active confirmed Problem 712897782 Dyslipidemia (E78.5) Active confirmed Problem 062413619 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 Problem 95312491 Postmenopausal (Z78.0) Active confirmed Problem 95211847 Post concussion syndrome (F07.81) Active confirmed Problem 974337072 Seasonal allergi c rhinitis, unspecified trigger (J30.2) Active confirmed Problem 363368246 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 [facility] [address] [place], [place] [id number] 07/07/2024 Pipo Fowler Squamous cell carcin ariana of skin C44.92 [facility] [address] [place] [address] [place], [place] [id number] 08/18/2024 Pipo Fowler Squamous cell carcin ariana of skin C44.92 ; 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 ; Essential hypertension I10 and Encounter for immunization Z23 [facility] [address] [place], [place] [id number] 08/28/2024 Staci Kunz Encounter for immunization Z23 [facility] [address] [place], [place] [id number] 01/01/2025 Pipo Fowler Actinic keratoses L5 7.0 [facility] [address] [place] [address] [place], [place] [id number] 01/26/2025 Staci Kunz Essential hypertensi on I10 ; DM (diabetes mellitus) E11.9 ; Lumbar degenerative disc disease M51.36 ; Mixed hyperlipidemia E78.2 ; 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 ; Seasonal allergic rhinitis, unspecified trigger J30.2 and Dysuria R30.0 [facility] [address] [place], [place] [id number] 03/21/2025 Staci Kunz Dizziness R42 ; Inju ry of head, subsequent encounter S09.90XD ; Post concussion syndrome F07.81 ; Hypokalemia E87.6 ; Essential hypertension I10 and BMI 24.0-24.9, adult Z68.24 [facility] [address] [place], [place] [id number] 04/02/2025 R Chaim Ivy [facility] [address] [place], [place] [id number] 07/11/2024 Pipo Fowler [facility] [address] [place], [place] [id number] 07/18/2024 R Chaim Ivy [facility] [address] [place], [place] [id number] 08/24/2024 R Chaim Ivy [facility] [address] [place], [place] [id number] 10/31/2024 R Chaim Ivy Right hip pain M25.5 51 [facility] [address] [place], [place] [id number] 02/01/2025 Stacielizabeth Kunz [facility] [address] [place], [place] [id number] 02/02/2025 R Chaim Ivy [facility] [address] [place] [id number] 03/14/2025 R Chaim Ivy [facility] [address] [place], [place] [id number] 03/16/2025 Vikash Victoria [facility] [address] [place], [place] [id number] 03/28/2025 Staci Kunz Assessments Encounter Date Diagnosis (ICD Code) Assessment Notes Treatment Notes Treatment Clinical Notes Section Notes 03/21/2025 Dizziness (ICD-10 - R42) Holter monitor results still pending. Patient's granddaughter is calling to make a cardiology appt at [facility]. They would also like a neurology appt. 03/21/2025 Injury of head, subsequent encounter (ICD-10 - S09.90XD) Patient continues to have symptoms of post concussive syndrome. Will make neurology referral. She needs continued mental and physical rest. 01/26/2025 Essential hypertension (ICD-10 - I10) 01/26/2025 DM (diabetes mellitus) (ICD-10 - E11.9) 01/01/2025 Actinic keratoses (ICD-10 - L57.0) 10/31/2024 Right hip pain (ICD-10 - M25.551) 08/28/2024 Encounter for immunization (ICD-10 - Z23) 06/26/2024 T2DM (type 2 diabetes mellitus) (ICD-10 - E11.9) 06/20/2024 Toe pain, right (ICD-10 - M79.674) no pain with filing; will continue with socks with shoes; bandaide for padding prn 08/18/2024 Arteriosclerotic cardiovascular disease (ASCVD) (ICD-10 - I25.10) 08/18/2024 Squamous cell carcinoma of skin (ICD-10 - C44.92) She should notify us if lesions try to recur prior to her dermatology appointment. 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 Fowlre. 06/26/2024 Essential hypertension (ICD-10 - I10) 06/26/2024 Actinic keratoses (ICD-10 - L57.0) 08/18/2024 Essential hypertension (ICD-10 - I10) 01/26/2025 Lumbar degenerative disc disease (ICD-10 - M51.36) 03/21/2025 Post concussion syndrome (ICD-10 - F07.81) 03/21/2025 Hypokalemia (ICD-10 - E87.6) 01/26/2025 Mixed hyperlipidemia (ICD-10 - E78.2) 08/18/2024 Encounter for immunization (ICD-10 - Z23) 06/26/2024 ASCVD (arteriosclerotic cardiovascular disease) (ICD-10 - I25.10) 01/26/2025 Arteriosclerotic cardiovascular disease (ASCVD) (ICD-10 - I25.10) 03/21/2025 Essential hypertension (ICD-10 - I10) 03/21/2025 BMI 24.0-24.9, adult (ICD-10 - Z68.24) 01/26/2025 Seasonal allergic rhinitis, unspecified trigger (ICD-10 - J30.2) 01/26/2025 Dysuria (ICD-10 - R30.0) 03/21/2025 Other Discharge summary with available lab/diagnostic imaging results obtained and reviewed. Discharge medication list reconciled. Appropriate counseling provided. Moderate Complexity Plan Of Treatment Next Appt Details Provider Name:Staci walls, 05/10/2025 09:30:00 AM, [address], [place], [id number], Insurance Providers Payer Name Payer Address Payer Phone Subscriber Number Group Number Insured Name Patient Relationship to Insured Coverage Start Date Coverage End Date MEDICARE PART B [address] [address] [place] [id number] [id number] MARILYN MCMULLEN Self - patient is the insured [facility] [address] [place] [address] [id number] MARILYN MCMULLEN Self - patient is the [...]
--- NOTE | 2025-04-10 07:00 | NM_ITS ---
APPROVED REPORT Exam: Nuclear Stress Test Indication: Abnormal EKG, Syncope, HTN, DM Patient Location: Outpatient Stress Tech: Kamla Hidalgo NM Tech:Seema Saucedo, ARRT, RT (R)(N) Ht: 5 ft 2 in Wt: 133 lbs Bra Size: 40D HR: 58 bpm BP: 184/77 mmHg BSA: 1.61 m2 TID: 0.99 BMI: 24.3 History: Abnormal EKG, Syncope, HTN, DM Procedure: Patient received 0.4 mg of intravenous Lexiscan, resting heart rate 58 bpm, resting blood pressure 184/77 mmHg, with Lexiscan maximum heart rate achieved was 89 bpm which is % of the maximum predicted heart rate and blood pressure was 172/72 mmHg. With Lexiscan, patient denied any complaint of chest pain. Cardiac Stress and Resting SPECT Images: Cardiac Stress and Resting SPECT images were obtained using technetium 99m Myoview 30.6 mCi stress and 10.77 mCi at rest. The patient is unable to lie on her abdomen. Therefore, prone stress imaging could not be performed. This may affect the diagnostic interpretation of the study findings. Resting and stress imaging in supine positions demonstrate no evidence of fixed or reversible perfusion defects. Gated imaging demonstrates normal global and regional LV systolic function. LVEF is calculated at 71%. Conclusion: No evidence of fixed or reversible perfusion defects. Gated imaging demonstrates normal global and regional LV systolic function. LVEF is calculated at 71%. Electronically signed by : Noris Singh MD 04/10/2025 13:48:05
[2025-04-10] MEDS: SODIUM CHLORIDE 0.9% 10ML SYR (RAD ONLY) 10 ML IV ×2 (08:28)
[2025-04-10] MEDS: REGADENOSON 0.4MG/5ML SYRINGE 0.4 MG IV (08:28)
[2025-04-10] MEDS: ISOTOPE MYOVIEW (PER STUDY) 1 DOSE IV (08:28)
== END 2025-04-10 23:59 | disposition home or self-care (01) ==
LOC: RAD 06:55
PROVIDERS: PCP Family Medicine; Visit Provider Physician Assistant
DX: R94.31 Abnormal electrocardiogram [ECG] [EKG] (principal); I10 Essential (primary) hypertension; R55 Syncope and collapse; E78.5 Hyperlipidemia, unspecified; E11.9 Type 2 diabetes mellitus without complications
CPT/HCPCS: 78452; 93017; 93018; A9502; J2785

== ENCOUNTER 2025-05-28 08:57 | Outpatient (CLI) | payer MEDICARE, BC, SELFPAY ==
--- OUTSIDE RECORDS SUMMARY | 2025-01-26 06:15 | XMS_ITS ---
Author Organization [facility] Address 1210 [facility] [address] [place] [id number] Care Team Providers Care Jeeper Operator Name Role Phone Maicol Haynes Primary Care Provider [phone] Carlos AlbertoRyan arguelloa Unavailable [phone] Allergies No Known Allergies Results Component Value Reference Range Notes Urinalysis - Inhouse Reviewed date:01/26/2025 01:50:25 PM Interpretation: Performing Lab: Notes/Report: Color/Clarity clear Leuk neg Nitrite neg Urobili 3.2 Protein neg pH 7.0 Blood neg Sp. Gr. 1.010 Ketone neg Bili neg Gluc neg CBC Venipuncture (in house) Reviewed date:01/26/2025 01:50:32 PM Interpretation: Performing Lab: Notes/Report: wbc 5.7 3.5 - 10 lymph 42.7 15 - 50 mid 6.2 2 - 15 gran 51.1 35 - 80 rbc 4.18 3.5 - 5.5 hgb 12.4 11.5 - 16.5 hct 36.2 35 - 55 mcv 86.5 75 - 100 mch 29.7 25 - 35 mchc 34.3 31 - 38 platlet 211 100 - 400 Glycohemoglobin A1c (in hous e) Reviewed date:02/01/2025 02:38:31 PM Interpretation:8.2% Performing Lab: Notes/Report: 8.2% glycohemoglobin 8.2% 5 - 6.5 % P-Comprehensive Metabolic Pa geovanny (CMP) Reviewed date:02/01/2025 02:38:30 PM Interpretation:gluc 120 Performing Lab: Notes/Report: Test performed by [facility] [address] [place] [address] , [address], [place] [address] Aristeo Reddy MD, Fire Protection Engineering Technician CLIA: [id number] Sodium 141 135-145 mmol/L Potassium 3.5 3.5-5.3 mmol/L Chloride 100 97-108 mmol/L CO2 29 22-32 mmol/L Glucose 120 65-99 mg/dL BUN 14 8-23 mg/dL Creatinine 0.73 0.50-1.00 mg/dL Calcium 9.3 8.6-10.4 mg/dL eGFR by Creatinine 79 >59 mL/min/1.73m2 Protein 6.8 6.0-8.3 g/dL Albumin 4.0 3.5-5.3 g/dL Alkaline Phosphatase 101 35-121 IU/L ALT (SGPT) 17 <5-47 IU/L AST (SGOT) 20 <5-40 IU/L Bilirubin, Total 0.4 <0.2-1.2 mg/dL A/G Ratio 1.4 1.1-2.5 P-Lipid Panel Reviewed date:02/01/2025 02:38:30 PM Interpretation: Normal Performing Lab: Notes/Report: Test performed by [facility] [address] [place] [address] , [address], [place] [address] Aristeo Reddy MD, Fire Protection Engineering Technician CLIA: [id number] Cholesterol 106 <200 mg/dL Triglycerides 108 <150 mg/dL HDL Cholesterol 55 >39 mg/dL Cholesterol / HDL Ratio 1.93 0.00-4.44 Ratio Non-HDL Cholesterol 51 <130 mg/dL LDL Cholesterol (Calculation) 29 <130 mg/dL LDL Cholesterol Levels* Less than 100 mg/dL Optimal 100 to 129 mg/dL Near Optimal/ Above Optimal 130 to 159 mg/dL Borderline High 160 to 189 mg/dL High 190 mg/dL and above Very High * Categories as recommended by the 2004 ATPIII guidelines LDL/HDL Ratio 0.5 <3.3 Ratio LDL Cholesterol Patient History Test Date: 11/03/2023 LDL Results: 37 Units: mg/dL % Change: - Test Date: 01/26/2025 LDL Results: 29 Units: mg/dL % Change: -21% P-TSH reflex to FT4 Reviewed date:02/01/2025 02:38:31 PM Interpretation: Normal Performing Lab: Notes/Report: Test performed by [facility] [address] [place] [address] [place] [address] Aristeo Reddy MD, Fire Protection Engineering Technician CLIA: [id number] TSH reflex to FT4 1.03 0.43-5.25 mU/L P-Microalbumin/Creatinine, R andom Urine Sample Reviewed date:02/01/2025 02:38:31 PM Interpretation: Normal Performing Lab: Notes/Report: Test performed by [facility] [address] [place] [address] , [place] [address] Aristeo Reddy MD, Fire Protection Engineering Technician CLIA: [id number] Albumin/Creatinine Ratio, Urine 9 0-30 ug/m g Microalbumin, Urine, Random 0.3 Creatinine, Urine 32.6 REASON FOR VISIT glucose running high Medications Medication SIG (Take, Route, Frequency, Duration) Notes Start Date End Date Status Blood Glucose Test Strips 333 - 1 strip In Vitro once a day or as directed 07/18/2024 Active Valsartan-hydroCHLOROthiazid e 320-25 MG 1 tab(s) orally once a day; Duration: 30 days Active glipiZIDE 5 MG TAKE 1 TABLET BY MOUTH TWICE DAILY; Duration: 90 days Active OneTouch Ultra DIRECTED ONCE A DAY OR DIRECTED 02/13/2013 Active Meclizine HCl 25 MG 1 tab(s) orally ac and hs prn for inner ear Active Omeprazole 20 MG TAKE 1 CAPSULE BY MOUTH DAILY 30 MINUTES BEFORE BREAKFAST; Duration: 30 Active Os-Barron Calcium + D3 500-5 MG-MCG 1 tablet with meals Orally once a day Active Aspirin 81 MG 1 tablet Orally Once a day; Duration: 30 day(s) Active Furosemide 20 MG TAKE 1 TABLET BY MOUTH EVERY OTHER DAY; Duration: 90 Active hydroCHLOROthiazide 25 MG TAKE 1 TABLET BY MOUTH DAILY; Duration: 90 Active Lisinopril 10 MG TAKE 1 TABLET BY MOUTH EVERY DAY; Duration: 90 Active Simvastatin 20 MG 1 tab(s) orally once a day (at bedtime); Duration: 90 days Active Potassium Chloride Camille ER 2 0 MEQ 1 tab(s) Orally Once a day; Duration: 90 days Active Gabapentin 300 MG 1 cap(s) orally 2 times a day; Duration: 30 days 10/31/2024 Active metFORMIN HCl 1000 MG TAKE 1 TABLET BY MOUTH TWICE DAILY; Duration: 90 Active Vital Signs Blood pressure systolic 150 mm Hg 01/27/20 25 Blood pressure diastolic 66 mm Hg 025 Heart Rate 67 /min 01/26/2025 Height 62 in 01/26/2025 Weight 136.0 lbs 01/26/2025 BMI 24.87 kg/m2 01/26/2025 Encounters Encounter Location Date Provider Diagnosis [facility] [address] [place], [place] [id number] 01/26/2025 Staci Kunz Essential hypertensi on I10 ; DM (diabetes mellitus) E11.9 ; Lumbar degenerative disc disease M51.36 ; Mixed hyperlipidemia E78.2 ; 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 ; Seasonal allergic rhinitis, unspecified trigger J30.2 and Dysuria R30.0 Assessments Encounter Date Diagnosis (ICD Code) Assessment Notes Treatment Notes Treatment Clinical Notes Section Notes 01/26/2025 Essential hypertension (ICD-10 - I10) 01/26/2025 DM (diabetes mellitus) (ICD-10 - E11.9) 01/26/2025 Lumbar degenerative disc disease (ICD-10 - M51.36) 01/26/2025 Mixed hyperlipidemia (ICD-10 - E78.2) 01/26/2025 Arteriosclerotic cardiovascular disease (ASCVD) (ICD-10 - I25.10) 01/26/2025 Seasonal allergic rhinitis, unspecified trigger (ICD-10 - J30.2) 01/26/2025 Dysuria (ICD-10 - R30.0) Plan Of Treatment Next Appt Details Follow Up: via phone to repo rt test results, Reason: Progress Notes * MARILYN MCMULLENDOB:[birth year] (89 yo F)Acc No.[id number]:01/26/2025 Progress Notes Patient: MARILYN SLADE Provider: CORNELIUS Liz :1935 A ge:89 Y S ex:Female Date:01/26/2025 Address:[address] [place], [place] [id number] Pcp:Maicol Haynes Subjective: * Chief Complaints: * 1 . Glucose running high. * HPI: E ndocrinology: 89 year old female presents with c/o Recent Blood Sugars P t is here today for c/o BS running high. Pt sts it usually runs in 80-90s and sts that here lately it has been 125-130. Pt sts she is fasting today. She thought the metformin was causing kidney problems so she began only taking it every other day, but then her glucose went up so she started taking the glipizide twice a day. She just recently began taking the metformin twice a day again and her glucose has been better. . * ROS: C ARDIOLOGY: no C hest pain. n o S hortness of breath. ? G ASTROENTEROLOGY: no N ausea. n o V omiting. n o D iarrhea.? U ROLOGY: no D ifficulty urinating. n o B lood in urine. * Medical History: D iawallytes mellitis, Hypertension. * Family History: F ather: [...] TAKE 1 TABLET BY MOUTH DAILY , Taking Omeprazole 20 MG Capsule Delayed Release TAKE 1 CAPSULE BY MOUTH DAILY 30 MINUTES BEFORE BREAKFAST , Medication List reviewed and reconciled with the patient * Allergies: N .K.D.A. Objective: * Vitals: W t: 136.0, Temp: 97.6, BP: 150/66, HR: 67, Nurse: rm, Ht: 62, Repeat BP:130/60, BMI:24.87. * Examination: G eneral Examination: General Appearance: N AD. H EENT: u nremarkable.?Oral cavity: n o lesions, mucosa moist and WNL, no erythema. N catherine: s upple, no lymphadenopathy. C hest: n ormal shape and expansion. H eart: R SR. L ungs: c lear to auscultation. A bdomen: bowel sounds present, soft and nontender, no organomegaly or masses, no guarding or rigidity. N eurologic Exam: I ntact, gait normal. S kin: n ormal, no rash. P eripheral pulses: n ormal (2+) bilaterally. E xtremities: n o leg edema. Assessment: * Assessment: 1. E ssential hypertension - I10 (Primary) 2 . D M (diabetes mellitus) - E11.9 3 . L umbar degenerative disc disease - M51.36 4 . M ixed hyperlipidemia - E78.2 5 . A rteriosclerotic cardiovascular disease (ASCVD) - I25.10 6 . S easonal allergic rhinitis, unspecified trigger - J30.2 ?7. D ysuria - R30.0 Plan: * Treatment: Value Reference Range A /G Ratio 1.4 1.1-2.5 - * A lbumin 4.0 3.5-5.3 - g/dL * A lkaline Phosphatase 101 35-121 - IU/L * A LT (SGPT) 17 <5-47 - IU/L * A ST (SGOT) 20 <5-40 - IU/L * B ilirubin, Total 0.4 <0.2-1.2 - mg/dL * B UN 14 8-23 - mg/dL * C alcium 9.3 8.6-10.4 - mg/dL * C hloride 100 97-108 - mmol/L * C O2 29 22-32 - mmol/L * C reatinine 0.73 0.50-1.00 - mg/dL * G lucose 120 H 65-99 - mg/dL * P otassium 3.5 3.5-5.3 - mmol/L * S odium 141 135-145 - mmol/L * P rotein 6.8 6.0-8.3 - g/dL * e GFR by Creatinine 79 >59 - mL/min/1.73m2 * Genet Hooker 02/01/2025 02:37 :16 PM > See phone encounter ?LAB: P-TSH reflex to FT4 (Collection Date & Time - 01/26/2025 09:31 AM)? Normal* Value Reference Range T SH reflex to FT4 1.03 0.43-5.25 - mU/L * Genet Hooker 02/01/2025 02:37 :16 PM > See phone encounter ?LAB: CBC Venipuncture (in house) (Collection Date & Time - 01/26/2025)* Value Reference Range w bc 5.7 3.5 - 10 * l ymph 42.7 15 - 50 * m id 6.2 2 - 15 * g ran 51.1 35 - 80 * r bc 4.18 3.5 - 5.5 * h gb 12.4 11.5 - 16.5 * h ct 36.2 35 - 55 * m cv 86.5 75 - 100 * m ch 29.7 25 - 35 * m chc 34.3 31 - 38 * p latlet 211 100 - 400 * Danyell Andre 01/26/2025 10:4 6:51 AM >Staci Kunz 01/26/2025 1:50:29 PM > 2.?DM (diabetes mellitus)?LAB: P-Microalbumin/Creatinine, Random Urine Sample (Collection Date & Time - 01/26/2025 09:31 AM)?Normal* Value Reference Range A lbumin/Creatinine Ratio, Urine 9 0-30 - ug /mg * C reatinine, Urine 32.6 - mg/dL * M icroalbumin, Urine, Random 0.3 - mg/dL * Genet Hooker 02/01/2025 02:37 :16 PM > See phone encounter ?LAB: Glycohemoglobin A1c (in house) (Collection Date & Time - 01/26/2025)? 8.2%* Value Reference Range g lycohemoglobin 8.2% 5 - 6.5 % * Danyell Andre 01/26/2025 10:4 8:13 AM > Genet Hooker 02/01/2025 02:37:16 PM > See phone encounter 3.?Mixed hyperlipidemia?LAB: P-Lipid Panel (Collection Date & Time - 01/26/2025 09:31 AM)?Normal* Value Reference Range C holesterol / HDL Ratio 1.93 0.00-4.44 - Ratio * C holesterol 106 <200 - mg/dL * H DL Cholesterol 55 >39 - mg/dL * L DL Cholesterol (Calculation) 29 <130 - mg/d L * L DL/HDL Ratio 0.5 <3.3 - Ratio * N on-HDL Cholesterol 51 <130 - mg/dL * T riglycerides 108 <150 - mg/dL * Genet Hooker 02/01/2025 02:37 :16 PM > See phone encounter 4.?Dysuria?LAB: Urinalysis - Inhouse (Collection Date & Time - 01/26/2025)* Value Reference Range C olor/Clarity clear * L euk neg * N itrite neg * U robili 3.2 * P rotein neg * p H 7.0 * B lood neg * S p. Gr. 1.010 * K etone neg * B dylan neg * G nisha neg * Danyell Andre 01/26/2025 10:3 1:49 AM > Provider reviewed results while patient in office.Staci Kunz 01/26/2025 1:50:22 PM > * Procedure Codes: G 2211 Complex e/[place], [address] GLYCATED HEMOGLOBIN TEST, Modifiers: QW , [address] CBC WITH AUTO DIFF, 70643 Urinalysis, no micro, 3052F HG A1C>EQUAL 8.0%<EQUAL 9.0%, G8752 MOST RECENT SYSTOLIC BP < 140MM HG, G8754 MOST RECENT DIASTOLIC BP < 90MM HG * Follow Up: v ia phone to report test results * Images: Billing Information: * Visit Code: 52504 Office Visit, Est Pt., Level 4. * Procedure Codes: G2211 Complex e/[place]. [address] GLYCATED HEMOGLOBIN TEST. Modifiers: QW 40355 CBC WITH AUTO DIFF. 53883 Urinalysis, no micro. 3052F HG A1C>EQUAL 8.0%<EQUAL 9.0%. G8752 MOST RECENT SYSTOLIC BP < 140MM HG. G8754 MOST RECENT DIASTOLIC BP < 90MM HG. * Electronic signature of CORNELIUS Chery on 05/28/2025 at 09:00 AM EDT Sign off status: Pending * Provider: CORNELIUS Liz Date: 0 01/26/2025 Generated for Leroy guzman/Marisa/Ignacioitting on: 0 05/28/2025 09:00 AM EDT History and Physical Notes * HPI (History of Present Illness) Category Sub-Category Detail Notes Category Not es Endocrinology Recent Blood Sugars Pt is here t jazzy for c/o BS running high. Pt sts it usually runs in 80-90s and sts that here lately it has been 125-130. Pt sts she is fasting today. She thought the metformin was causing kidney problems so she began only taking it every other day, but then her glucose went up so she started taking the glipizide twice a day. She just recently began taking the metformin twice a day again and her glucose has been better. Examination Category Sub-Category Detail Notes Category Not es General Examination HEENT: unremarkable Heart: RSR Lungs: clear to auscultatio n Abdomen: bowel sounds present , soft and nontender, no organomegaly or masses, no guarding or rigidity Extremities: no leg edema General Appearance: NAD Skin: normal, no rash Neurologic Exam: Intact, gait normal Neck: supple, no lymphaden opathy Oral cavity: no lesions, mucosa m oist and WNL, no erythema Peripheral pulses: normal (2+) bilatera lly Chest: normal shape and exp ansion
--- OUTSIDE RECORDS SUMMARY | 2025-03-21 11:15 | XMS_ITS ---
Author Organization [facility] Address [address] [facility] [address] [place], [place] [address] Care Team Providers Care Plate Mill Mill Hand Name Role Phone Maicol Haynes Primary Care Provider Carlos AlbertoRyan arguelloa Unavailable [phone] Allergies No Known Allergies Results Component Value [...] 123 Performing Lab: Notes/Report: Test performed by [employer] [facility]0 [facility] , [address], [place] [address] Aristeo Reddy MD, Contract Accountant CLIA: [id number] Sodium 137 135-145 mmol/L Potassium 4.2 3.5-5.3 [...] Interpretation: Performing Lab: Notes/Report: Test performed by [employer], [address] , [place] [address] Aristeo Reddy MD, Contract Accountant CLIA: [id number] TSH reflex to FT4 0.90 0.43-5.25 mU/L REASON FOR VISIT F/U [facility] Medications Medication SIG (Take, Route, Frequency, Duration) Notes Start Date End Date Status Lisinopril 10 MG TAKE 1 TABLET BY MOUTH EVERY DAY; Duration: 90 Active glipiZIDE 5 MG TAKE 1 TABLET BY MOUTH TWICE DAILY; Duration: 90 Active Ondansetron HCl 4 MG 1 tablet Orally abilio ry 8 hours as needed 03/16/2025 Active Meclizine HCl 25 MG 1 tablet as needed Orally every 8 hrs 03/16/2025 Active Simvastatin 20 MG TAKE 1 TABLET BY MOUTH DAILY AT BEDTIME; Duration: 90 Active Gabapentin 300 MG 1 cap(s) orally 2 times a day; Duration: 30 days 10/31/2024 Active Furosemide 20 MG TAKE 1 TABLET BY MOUTH EVERY OTHER DAY; Duration: 90 Active metFORMIN HCl 1000 MG TAKE 1 TABLET BY MOUTH TWICE DAILY; Duration: 90 Active Omeprazole 20 MG TAKE 1 CAPSULE BY MOUTH DAILY 30 MINUTES BEFORE BREAKFAST; Duration: 30 Active hydroCHLOROthiazide 25 MG TAKE 1 TABLET BY MOUTH DAILY; Duration: 90 Active Aspirin 81 MG 1 tablet Orally Once a day; Duration: 30 day(s) Active Blood Glucose Test Strips 333 - 1 strip In Vitro once a day or as directed 07/18/2024 Active OneTouch Ultra DIRECTED ONCE A DAY OR DIRECTED 02/13/2013 Active Potassium Chloride Camille ER 2 0 MEQ 1 tab(s) Orally Once a day; Duration: 90 days Active Os-Barron Calcium + D3 500-5 MG-MCG 1 tablet with meals Orally once a day Active Meclizine HCl 25 MG 1 tab(s) orally thre e times a day as needed Active Problems Problem Type SNOMED Code ICD Code Onset Dates Problem Status W/U Status Risk Notes Problem Post concussion syndrome (F07.81) Active confirmed Vital Signs Blood pressure systolic 120 mm Hg 03/21/20 25 Blood pressure diastolic 76 mm Hg 025 Heart Rate 70 /min 03/21/2025 Height 62 in 03/21/2025 Weight 132.6 lbs 03/21/2025 BMI 24.25 kg/m2 03/21/2025 Encounters Encounter Location Date Provider Diagnosis [facility] [address] [place], [place] [phone] 03/21/2025 Staci Kunz Dizziness R42 ; Inju [...] calling to make a cardiology appt at [facility]. They would also like a neurology [...] (ICD-10 - Z68.24) 03/21/2025 Other Discharge summa ry with available lab/diagnostic imaging results obtained and [...] calling to make a cardiology appt at [facility]. They would also like a neurology appt. Injury of head, subsequent encounter Pat dileep continues to have symptoms of post concussive syndrome. Will make neurology referral. She needs continued mental and physical rest. Other Discharge summary wi th available lab/diagnostic imaging results obtained and reviewed. Discharge medication list reconciled. Appropriate counseling provided. Moderate Complexity Next Appt Details Follow Up: via phone to repo rt test results, Reason: Progress Notes * MARILYN MCMULLENDOB:[birth year] (89 yo F)Acc No.[id number]:03/21/2025 Patient: MARILYN SLADE Provider: CORNELIUS Liz :1935 A ge:89 Y S ex:Female Date:03/21/2025 Address:[address] [place] [address] Pcp:Maicol Haynes Subjective: * Chief Complaints: * 1 . F/U [facility]. * HPI: H PI: Patient is here today for a Transition of Care Visit. [facility]charge [facility] the [facility],Discharge [facility]: 03/14/2025,Date of phone contact following discharge: [...] Examination: General Appearance: N AD. H EENT: sclera and conjunctiva clear, PERRLA, TM's normal, translucent, EOM's with normal ROM. O ral cavity: n o lesions, mucosa moist and WNL, no erythema. N catherine: s upple, no lymphadenopathy. C hest: normal shape and expansion. H eart: R SR. L ungs: c lear to auscultation. A bdomen: bowel sounds present, soft and nontender, no organomegaly or masses, no guarding or rigidity. N eurologic Exam: alert and oriented, normal cranial nerves II-XII sensory & motor WNL, unsteady on [place]om[place]. S kin: n ormal, no rash. P eripheral pulses: n ormal (2+) bilaterally. E xtremities: n o leg edema. Assessment: * Assessment: 1. D izziness - R42 (Primary) 2 . I njury of head, subsequent encounter - S09.90XD 3 . P ost concussion syndrome - F07.81 4 . H ypokalemia - E87.6 5 . E ssential hypertension - I10 6 . B RI 24.0-24.9, adult - Z68.24 Plan: * Treatment: Value Reference Range T SH reflex to FT4 0.90 0.43-5.25 - mU/L * Makayla Brown 03/28/2025 03: 21:54 PM > See phone encounter Notes: Holter monitor results still pending. Patient's granddaughter is calling to make a cardiology appt at [facility]. They would also like a neurology appt.?? 2.?Injury of head, subsequent encounter? Notes: Patient continues to have symptoms of post concussive syndrome. Will make neurology referral. She needs continued mental and physical rest. ??3.?Post concussion syndrome?LAB: CBC Venipuncture (in house) (Collection [...] Dolly Zamorano 03/21/2025 04 :24:05 PM > 4.?Hypokalemia?LAB: P-Comprehensive Metabolic Panel (CMP) (Collection Date [...] MERGE, G2211 Complex e/[place], [address] CBC WITH AUTO DIFF, G8420 BMI<30 AND >=22 CALC & DOCU, G8752 MOST RECENT SYSTOLIC BP < 140MM HG, G8754 MOST RECENT DIASTOLIC BP < 90MM HG * Follow Up: v ia phone to report test results * Images: Billing Information: * Visit Code: 53184 Office Visit, Est Pt., Level 4. * Procedure Codes: 52901 TRANS CARE MGMT 14 DAY DISCH. 1111F DSCHR MED/CURENT MED MERGE. G2211 Complex e/[place]. [address] CBC WITH AUTO DIFF. G8420 BMI<30 AND >=22 CALC & DOCU. G8752 MOST RECENT SYSTOLIC BP < 140MM HG. G8754 MOST RECENT DIASTOLIC BP < 90MM HG. * Electronic signature of CORNELIUS Chery on 05/28/2025 at 09:00 AM EDT Sign off status: Pending * Provider: CORNELIUS Liz Date: 0 03/21/2025 Generated for Leroy guzman/Marisa/Robertransmitting on: 0 05/28/2025 09:00 AM EDT History and Physical Notes * HPI (History of Present Illness) Category Sub-Category Detail Notes Category Not es HPI Patient is here today for a [facility] sition of Care Visit. [facility]charge [facility]charge [facility]: 03/14/2025,Date of phone contact following discharge: [...]
--- OUTSIDE RECORDS SUMMARY | 2025-05-10 05:30 | XMS_ITS ---
Author Organization [facility] Address [address] [facility] [address] [id number] Care Team Providers Care Laborer Orchard Name Role Phone Maicol Haynes Primary Care Provider Carlos AlbertoStaci arguello Unavailable [phone] Allergies No Known Allergies Results Component Value Reference Range Notes CBC Venipuncture (in house) Reviewed date:05/14/2025 01:28:23 PM Interpretation: Normal Performing Lab: Notes/Report: Normal wbc 4.8 3.5 - 10 lymph 41.8 15 - 50 mid 7.3 2 - 15 gran 50.9 35 - 80 rbc 5.47 3.5 - 5.5 hgb 16.1 11.5 - 16.5 hct 48.7 35 - 55 mcv 89.1 75 - 100 mch 29.5 25 - 35 mchc 33.1 31 - 38 platlet 219 100 - 400 Glycohemoglobin A1c (in hous e) Reviewed date:05/14/2025 01:28:23 PM Interpretation: Normal Performing Lab: Notes/Report: Normal glycohemoglobin 6.9% 5 - 6.5 % P-Comprehensive Metabolic Pa geovanny (CMP) Reviewed date:05/14/2025 01:28:23 PM Interpretation: Normal Performing Lab: Notes/Report: Test performed by [facility] , [address], [place] [address] Aristeo Reddy MD, Metallographer CLIA: [id number] Sodium 141 135-145 mmol/L Potassium 4.0 3.5-5.3 mmol/L Chloride 100 97-108 mmol/L CO2 30 20-32 mmol/L Glucose 102 65-99 mg/dL BUN 10 8-23 mg/dL Creatinine 0.71 0.50-1.00 mg/dL Calcium 9.6 8.6-10.4 mg/dL eGFR by Creatinine 82 >59 mL/min/1.73m2 Protein 7.7 6.0-8.3 g/dL Albumin 4.5 3.5-5.3 g/dL Alkaline Phosphatase 83 35-121 IU/L ALT (SGPT) 17 <5-47 IU/L AST (SGOT) 21 <5-40 IU/L Bilirubin, Total 0.3 <0.2-1.2 mg/dL A/G Ratio 1.4 1.1-2.5 P-Lipid Panel Reviewed date:05/14/2025 01:28:23 PM Interpretation: Normal Performing Lab: Notes/Report: Test performed by [facility], [address] , [address] , [place] [address] Aristeo Reddy MD, Metallographer CLIA: [id number] Cholesterol 120 <200 mg/dL Triglycerides 138 <150 mg/dL HDL Cholesterol 54 >39 mg/dL Cholesterol / HDL Ratio 2.22 0.00-4.44 Ratio Non-HDL Cholesterol 66 <130 mg/dL LDL Cholesterol (Calculation) 38 <130 mg/dL LDL Cholesterol Levels* Less than 100 mg/dL Optimal 100 to 129 mg/dL Near Optimal/ Above Optimal 130 to 159 mg/dL Borderline High 160 to 189 mg/dL High 190 mg/dL and above Very High * Categories as recommended by the 2004 ATPIII guidelines LDL/HDL Ratio 0.7 <3.3 Ratio LDL Cholesterol Patient History Test Date: 11/03/2023 LDL Results: 37 Units: mg/dL % Change: - Test Date: 01/26/2025 LDL Results: 29 Units: mg/dL % Change: -21% Test Date: 05/10/2025 LDL Results: 38 Units: mg/dL % Change: +31% P-TSH reflex to FT4 Reviewed date:05/14/2025 01:28:23 PM Interpretation: Normal Performing Lab: Notes/Report: Test performed by [facility], [address] , [facility], [place] [address] Aristeo Reddy MD, Metallographer CLIA: [id number] TSH reflex to FT4 0.81 0.43-5.25 mU/L Reason For Referral Diagnosis 1 Vertigo (R42) Diagnosis 2 Balance problems (R2 6.89) Referral Organization Al Referring Provider First Name Staci Referring Provider Last Name Ze Referring Provider Speciality Physician City Solicitor Referred Provider Specialty Physical The rapist General Notes Staci Kunz 08/2025 10:03:04 AM [facility] 05/10/2025 10:05:50 AM > faxed to [facility] PT Referral Priority Routine REASON FOR VISIT confirmed 3 month check with fasting labs and Annual Wellness Visit Medications Medication SIG (Take, Route, Frequency, Duration) Notes Start Date End Date Status Meclizine HCl 25 MG 1 tab(s) orally thre e times a day as needed Active metFORMIN HCl 1000 MG TAKE 1 TABLET BY MOUTH TWICE DAILY; Duration: 90 Active Furosemide 20 MG TAKE 1 TABLET BY MOUTH EVERY OTHER DAY; Duration: 90 Active hydroCHLOROthiazide 25 MG TAKE 1 TABLET BY MOUTH DAILY; Duration: 90 Active Meclizine HCl 25 MG 1 tablet as needed Orally every 8 hrs 03/16/2025 Active Omeprazole 20 MG TAKE 1 CAPSULE BY MOUTH DAILY 30 MINUTES BEFORE BREAKFAST; Duration: 30 Active Simvastatin 20 MG TAKE 1 TABLET BY MOUTH DAILY AT BEDTIME; Duration: 90 Active Gabapentin 300 MG 1 cap(s) orally 2 times a day; Duration: 30 days 10/31/2024 Active Lisinopril 10 MG TAKE 1 TABLET BY MOUTH EVERY DAY; Duration: 90 Active glipiZIDE 5 MG TAKE 1 TABLET BY MOUTH TWICE DAILY; Duration: 90 Active Blood Glucose Test Strips 333 - 1 strip In Vitro once a day or as directed 07/18/2024 Active Potassium Chloride Camille ER 2 0 MEQ TAKE 1 TABLET BY MOUTH ONCE DAILY; Duration: 90 Active Aspirin 81 MG 1 tablet Orally Once a day; Duration: 30 day(s) Active OneTouch Ultra DIRECTED ONCE A DAY OR DIRECTED 02/13/2013 Active Os-Barron Calcium + D3 500-5 MG-MCG 1 tablet with meals Orally once a day Active Ondansetron HCl 4 MG 1 tablet Orally abilio ry 8 hours as needed Active Problems Problem Type SNOMED Code ICD Code Onset Dates Problem Status W/U Status Risk Notes Problem Balance problems (R26.89) Active confirmed Vital Signs Blood pressure systolic 126 mm Hg 05/10/20 25 Blood pressure diastolic 70 mm Hg 025 Heart Rate 60 /min 05/10/2025 Height 62 in 05/10/2025 Weight 131.2 lbs 05/10/2025 BMI 23.99 kg/m2 05/10/2025 Encounters Encounter Location Date Provider Diagnosis [facility] [address] [place], [place] [id number] 05/10/2025 Staci Kunz Adult general medica l examination Z00.00 ; Vertigo R42 ; Balance problems R26.89 ; Essential hypertension I10 ; DM (diabetes mellitus) E11.9 ; Mixed hyperlipidemia E78.2 ; Goiter E04.9 ; Injury of head, subsequent encounter S09.90XD ; Post concussion syndrome F07.81 ; Osteoporosis screening Z13.820 ; Type 2 diabetes mellitus with other specified complication E11.69 and BMI 23.0-23.9, adult Z68.23 Assessments Encounter Date Diagnosis (ICD Code) Assessment Notes Treatment Notes Treatment Clinical Notes Section Notes 05/10/2025 Adult general medical examination (ICD-10 - Z00.00) Patient instructed to return to office Annually for Annual Wellness Visits to include annual screenings of Pain assessment, Functional Ability assessment, Cognitive Ability assessment, Fall Risk assessment, Depression screening and Bladder control screening. 05/10/2025 Vertigo (ICD-10 - R42) 05/10/2025 Balance problems (ICD-10 - R26.89) 05/10/2025 Essential hypertension (ICD-10 - I10) 05/10/2025 DM (diabetes mellitus) (ICD-10 - E11.9) 05/10/2025 Mixed hyperlipidemia (ICD-10 - E78.2) 05/10/2025 Goiter (ICD-10 - E04.9) 05/10/2025 Injury of head, subsequent encounter (ICD-10 - S09.90XD) Patient has not gotten an appt with neurology. We called the neurology office today and they have been trying to reach the patient. A number was given to the patient for her to contact their office. 05/10/2025 Post concussion syndrome (ICD-10 - F07.81) 05/10/2025 Osteoporosis screening (ICD-10 - Z13.820) 05/10/2025 Type 2 diabetes mellitus with other specified complication (ICD-10 - E11.69) 05/10/2025 BMI 23.0-23.9, adult (ICD-10 - Z68.23) Plan Of Treatment Medication Medication Name Sig Start Date Stop Date Notes Meclizine HCl 25 MG 1 tab(s) orally thre e times a day as needed Treatment Notes Assessment Notes Adult general medical examination Patien t instructed to return to office Annually for Annual Wellness Visits to include annual screenings of Pain assessment, Functional Ability assessment, Cognitive Ability assessment, Fall Risk assessment, Depression screening and Bladder control screening. Injury of head, subsequent encounter Corrine falk has not gotten an appt with neurology. We called the neurology office today and they have been trying to reach the patient. A number was given to the patient for her to contact their office. Pending Test Test Name Order Date Bone density 05/10/2025 Referrals Referral Date Details 05/10/2025 05/10/2025 Next Appt Details Follow Up: As directed by MD , Reason: Progress Notes * RADHABELLEMARILYNDOB:[birth year] (89 yo F)Acc No.[id number]:05/10/2025 Annual Wellness Visit Patient: MARILYN SLADE Provider: CORNELIUS Liz :1935 A ge:89 Y S ex:Female Date:05/10/2025 Address:[address] [place] [address] Pcp:Maicol Haynes Subjective: * Chief Complaints: * 1 . confirmed 3 month check with fasting labs and Annual Wellness Visit. * HPI: H PI: Patient is here today for a scheduled check up with fasting labs and a Medicare Annual Wellness Visit. Pt wants to see if she is due for any shots. Pt states she needs a refill on Meclizine. * ROS: D ERMATOLOGY: no M ole. n o H mini. G ASTROENTEROLOGY: no N ausea. n o V omiting. n o D iarrhea.? O PTHALMOLOGY: Negative for d enies vision issues. U ROLOGY: no D ifficulty urinating. n [...] no. Alcohol: no. * Medications: T aking Meclizine HCl 25 MG Tablet 1 tab(s) orally three times a day as needed , Taking Os-Barron Calcium + D3 500-5 MG-MCG Tablet 1 tablet with meals Orally once a day , Taking Aspirin 81 MG Tablet Delayed Release 1 tablet Orally Once a day , Taking OneTouch Ultra DIRECTED ONCE A DAY OR DIRECTED , Taking Blood Glucose Test Strips 333 - Strip 1 strip In Vitro once a day or as directed , Taking Gabapentin 300 MG Capsule 1 cap(s) orally 2 times a day , Taking Omeprazole 20 MG Capsule Delayed [...] needed Orally every 8 hrs , Taking Furosemide 20 MG Tablet TAKE 1 TABLET BY MOUTH EVERY OTHER DAY , Taking hydroCHLOROthiazide 25 MG Tablet TAKE 1 TABLET BY MOUTH DAILY , Taking metFORMIN HCl 1000 MG Tablet TAKE 1 TABLET BY MOUTH TWICE DAILY , Taking Ondansetron HCl 4 MG Tablet 1 tablet Orally every 8 hours as needed , Taking Potassium Chloride Camille ER 20 MEQ Tablet Extended Release TAKE 1 TABLET BY MOUTH ONCE DAILY , Medication List reviewed and reconciled with the patient * Allergies: N .K.D.A. Objective: * Vitals: W t: 131.2, Temp: 97.7, BP: 126/70, HR: 60, Nurse: jose, Ht: 62, BMI:23.99. * Examination: G eneral Examination: General Appearance: N AD. H EENT: u nremarkable.?Oral cavity: n o lesions, mucosa moist and WNL, no erythema. N catherine: s upple, no lymphadenopathy. C hest: n ormal shape and expansion. H eart: R SR. L ungs: c lear to auscultation. A bdomen: b owel sounds present, soft and nontender, no organomegaly or masses. N eurologic Exam: I ntact, gait normal. S kin: n ormal, no rash. P eripheral pulses: n ormal (2+) bilaterally. E xtremities: n o leg edema. ? * Physical Examination: G ENERAL: Pain Assessment: P ain level: 0, on a scale of 0-10 (with 10 being extreme pain). F unctional Status Assessment: P atient response to question of how often physical health interferes with daily activities:almost never . Able to perform ADLs-including meal preparation, grocery shopping, housework, laundry, taking medications or handling finances. Cognitive Status: alert and oriented. Ambulation Status: Fully ambulatory. F all Risk Assessment: I ndependant in ambulation, adequate lighting in home. Patient has fallen and had trouble walking within the past 12 months. D epression Screening: D enies depressed mood or anxiety. Describes emotional health as: positive/upbeat. B ladder Control Screening: S mall problem. Assessment: * Assessment: 1. A dult general medical examination - Z00.00 (Primary) 2 . V ertigo - R42? 3. B alance problems - R26.89 4 . E ssential hypertension - I10 5 . D M (diabetes mellitus) - E11.9 6 . M ixed hyperlipidemia - E78.2 7 . G oiter - E04.9 8 . I njury of head, subsequent encounter - S09.90XD 9 . P ost concussion syndrome - F07.81 ?10. O steoporosis screening - Z13.820 1 1. T ype 2 diabetes mellitus with other specified complication - E11.69 1 2. B [place] 23.0-23.9, adult - Z68.23? Plan: * Treatment: 2. V ertigo Refill Meclizine HCl Tablet, 25 MG, 1 tab(s), orally, three times a day as needed, 30, Refills 2.? Referral To:Physical Therapist Reason: 3. B alance problems Referral To:Physical Therapist Reason: 4. E ssential hypertension L AB: P-Comprehensive Metabolic Panel (CMP) (Collection Date & Time - 05/10/2025 09:32 AM) N ormal Value Reference Range A /G Ratio 1.4 1.1-2.5 - * A lbumin 4.5 3.5-5.3 - g/dL * A lkaline Phosphatase 83 35-121 - IU/L * A LT (SGPT) 17 <5-47 - IU/L * A ST (SGOT) 21 <5-40 - IU/L * B ilirubin, Total 0.3 <0.2-1.2 - mg/dL * B UN 10 8-23 - mg/dL * C alcium 9.6 8.6-10.4 - mg/dL * C hloride 100 97-108 - mmol/L * C O2 30 20-32 - mmol/L * C reatinine 0.71 0.50-1.00 - mg/dL * G lucose 102 H 65-99 - mg/dL * P otassium 4.0 3.5-5.3 - mmol/L * S odium 141 135-145 - mmol/L * P rotein 7.7 6.0-8.3 - g/dL * e GFR by Creatinine 82 >59 - mL/min/1.73m2 * Staci Kunz 05/10/2025 1 0:10:08 AM EDT >room Ashannon Makayla Brown 05/14/2025 01:27:30 PM EDT > See phone encounter 5.?DM (diabetes mellitus)?LAB: CBC Venipuncture (in house) (Collection Date & Time - 05/10/2025)? Normal* Value Reference Range w bc 4.8 3.5 - 10 * l ymph 41.8 15 - 50 * m id 7.3 2 - 15 * g ran 50.9 35 - 80 * r bc 5.47 3.5 - 5.5 * h gb 16.1 11.5 - 16.5 * h ct 48.7 35 - 55 * m cv 89.1 75 - 100 * m ch 29.5 25 - 35 * m chc 33.1 31 - 38 * p latlet 219 100 - 400 * Mackenzie William 05/10/2025 1 1:26:19 AM EDT > Makayla Brown 05/14/2025 01:27:30 PM EDT > See phone encounter ?LAB: Glycohemoglobin A1c (in house) (Collection Date & Time - 05/10/2025)? Normal* Value Reference Range g lycohemoglobin 6.9% 5 - 6.5 % * Mackenzie William 05/10/2025 1 1:27:23 AM EDT > Makayla Brown 05/14/2025 01:27:30 PM EDT > See phone encounter 6.?Mixed hyperlipidemia?LAB: P-Lipid Panel (Collection Date & Time - 05/10/2025 09:32 AM)?Normal* Value Reference Range C holesterol / HDL Ratio 2.22 0.00-4.44 - Ratio * C holesterol 120 <200 - mg/dL * H DL Cholesterol 54 >39 - mg/dL * L DL Cholesterol (Calculation) 38 <130 - mg/d L * L DL/HDL Ratio 0.7 <3.3 - Ratio * N on-HDL Cholesterol 66 <130 - mg/dL * T riglycerides 138 <150 - mg/dL * Ryan Kunzelizabeth Moise 05/10/2025 1 0:10:08 AM EDT >room shannon Triana Whitney 05/14/2025 01:27:30 PM EDT > See phone encounter 7.?Goiter?LAB: P-TSH reflex to FT4 (Collection Date & Time - 05/10/2025 09:32 AM)? Normal* Value Reference Range T SH reflex to FT4 0.81 0.43-5.25 - mU/L * Ryan Kunzelizabeth Moise 05/10/2025 1 0:10:08 AM EDT >room Ashannon Whitney 05/14/2025 01:27:30 PM EDT > See phone encounter 8.?Injury of head, subsequent encounter? Notes: Patient has not gotten an appt with neurology. We called the neurology office today and theyhave been trying to reach the patient. A number was given to the patient for her to contact their office.??9.?Osteoporosis screening?Imaging: Bone density* Noelle Delcid 05/11/2025 08:3 9:25 AM EDT > faxed to [facility] Scheduling * Procedure Codes: G 0439 ANNUAL WELLNESS VST; PPS SUBSQT VST, G2211 Complex [place], [address] GLYCATED HEMOGLOBIN TEST, Modifiers: QW , 1090F PRES/ABSN URINE INCON ASSESS, 3288F FALL RISK ASSESSMENT DOCD, 1170F FXNL STATUS ASSESSED, 1126F AMNT PAIN NOTED NONE PRSNT, 1159F MED LIST DOCD IN RCRD, 1003F LEVEL OF ACTIVITY ASSESS, 1036F TOBACCO NON-USER, 3017F COLORECTAL CA SCREEN DOC REV, G9899 Scrn vanda perf rslts doc, 10048 CBC WITH AUTO DIFF, 42556 VENIPUNCT, ROUTINE*, G8510 NEG SCR Depression PT NOT ELIG F/U/PLN DOC, 3044F HG A1C LEVEL LT 7.0%, G8420 BMI<30 AND >=22 CALC & DOCU, G8950 PREHTN/HTN BP DOC INDCD F/U DOC, G8752 MOST RECENT SYSTOLIC BP < 140MM HG, G8754 MOST RECENT DIASTOLIC BP < 90MM HG * Preventive Medicine: Counseling: E motional health: P atient encouraged to try connecting with family or friends to boost mood. B ladder control: M ethods of controlling or managing leakage of urine discussed. E xercise: P atient advised to start, increase or maintain level of exercise/physical activity. I njury prevention: F all prevention discussed. Discussed need for cane/walker. Potential trip hazards discussed. Immunizations: T etanus u p to date. P neumococcal u p to date. I nfluenza u p to date. Screening / Special Tests: M ammogram R ecent history:11/16/2024, negative. C olonoscopy R ecent history:, excluded due to age. B one mineral Density R ecent history:02/05/2022, normal, recommended. D iabetic Retinal Eye Exam R ecent history:03/13/2025. N ephrology History R ecent history:, GFR and urine M/A performed 01/26/2025. * Follow Up: A s directed by * Images: Billing Information: * Visit Code: 43494 Office Visit, Est Pt., Level 3. Modifiers: 25 * Procedure Codes: G0439 ANNUAL WELLNESS VST; PPS SUBSQT VST. G2211 Complex e/[place]. [address] GLYCATED HEMOGLOBIN TEST. Modifiers: QW 1090F PRES/ABSN URINE INCON ASSESS. 3288F FALL RISK ASSESSMENT DOCD. 1170F FXNL STATUS ASSESSED. 1126F AMNT PAIN NOTED NONE PRSNT. 1159F MED LIST DOCD IN RCRD. 1003F LEVEL OF ACTIVITY ASSESS. 1036F TOBACCO NON-USER. 3017F COLORECTAL CA SCREEN DOC REV. G9899 Scrn [place]anda [place]slts [place]. [address] CBC WITH AUTO DIFF. 00456 VENIPUNCT, ROUTINE*. G8510 NEG SCR Depression PT NOT ELIG F/U/PLN DOC. 3044F HG A1C LEVEL LT 7.0%. G8420 BMI<30 AND >=22 CALC & DOCU. G8950 PREHTN/HTN BP DOC INDCD F/U DOC. G8752 MOST RECENT SYSTOLIC BP < 140MM HG. G8754 MOST RECENT DIASTOLIC BP < 90MM HG. * Electronic signature of CORNELIUS Chery on 05/28/2025 at 09:00 AM EDT Sign off status: Pending * Provider: CORNELIUS Liz Date: 05/10/2025 Generated for Leroy guzman/Marisa/Ignacioitting on: 05/28/2025 09:00 AM EDT History and Physical Notes * HPI (History of Present Illness) Category Sub-Category Detail Notes Category Not es HPI Patient is here today for a [facility] duled check up with fasting labs and a Medicare Annual Wellness Visit. Pt wants to see if she is due for any shots. Pt states she needs a refill on Meclizine Physical Examination Category Sub-Category Detail Notes Section Note s GENERAL Pain Assessment: Pain level: 0, on a scale of 0-10 (with 10 being extreme pain) Functional Status Assessment: Patient re sponse to question of how often physical health interferes with daily activities:almost never . Able to perform ADLs-including meal preparation, grocery shopping, housework, laundry, taking medications or handling finances.Cognitive Status: alert and oriented.Ambulation Status: Fully ambulatory Fall Risk Assessment: Independant in amb ulation, adequate lighting in home. Patient has fallen and had trouble walking within the past 12 months Depression Screening: Denies depressed m ood or anxiety. Describes emotional health as: positive/upbeat Bladder Control Screening: Small problem Examination Category Sub-Category Detail Notes Category Not es General Examination HEENT: unremarkable Heart: RSR Lungs: clear to auscultatio n Abdomen: bowel sounds present , soft and nontender, no organomegaly or masses Extremities: no leg edema General Appearance: NAD Skin: normal, no rash Neurologic Exam: Intact, gait normal Neck: supple, no lymphaden opathy Oral cavity: no lesions, mucosa m oist and WNL, no erythema Peripheral pulses: normal (2+) bilatera lly Chest: normal shape and exp ansion Consultation Request Notes Referral Date Referring Provider Referred Provider Not es 05/10/2025 Staci Kunz ,
--- OUTSIDE RECORDS SUMMARY | 2025-05-28 08:59 | XMS_ITS | Encounter Summary ---
[facility] Address [address] [place] [address] Care Team Providers Care Montessori Teacher Name Role Phone Leonides Haynes MD Primary Care Provider Reason for Visit * Reason Onset Date Comments Appointment 05/23/2025 Encounter Details Date Type Department Care Team (Late st Contact Info) Description 05/23/2025 Telephone [facility] NEUROLOGY [address] [facility] [address] [place] [address] Anita Leger, ROLL COVERER [address] [facility] [address] [place] [address] Appointment Social History Tobacco Use Types Packs/Day Years Used Date Smoking Tobacco: Never Assessed Abuse Screen Answer Date Recorded Unsafe at Home or Work/School Not on file Feels Threatened by Someone? Not on file 07/2023 Does Anyone Keep You from Co ntacting Others or Doint Things Outside the Home? Not on file 08/09/2023 Physical Sign of Abuse Present Not on file 1 Housing Stability Answer Date Recorded Current Living Arrangements Not on file 07/2023 Potentially Unsafe Housing Conditions Not on katya e 08/09/2023 Family and Community Support Answer Efrain e Recorded Help with Day-to-Day Activities Not on file 08/09/2023 Lonely or Isolated Not on file 08/09/2023 Employment Answer Date Recorded Do you want help finding or keeping work or a toro b? Not on file 08/09/2023 Disabilities Answer Date Recorded Concentrating, Remembering, or Making Decisions Difficulty Not on file 08/09/2023 Doing Errands Independently Difficulty Not on fi le 08/09/2023 Education Answer Date Recorded Help with school or training? Not on file Preferred Language Not on file 08/09/2023 Comments Unknown Sex and Gender Information Value Date Recorded Sex Assigned at Not on file Legal Sex Female 10:05 AM EDT Gender Identity Not on file Sexual Orientation Not on file documented as of this encounter Miscellaneous Notes * Telephone Encounter - Kori Breaux - 05/23/2025 2:42 PM EDT Provider: ANITA LEGER APRN Caller: Joellen Vanessa Relationship to Patient: Self (home) [phone] (work) Reason for Call: PATIENT REQUESTED AN APPOINTMENT REMINDER AND DIRECTIONS TO OFFICE TO BE MAILED TOHER HOME. THANK YOU . documented in this encounter Plan of Treatment Upcoming Encounters Date Type Department Care Team (Late st Contact Info) Description 08/10/2025 10:30 AM EDT Office Visit [facility] NEUROLOGY [address] [facility] [address] [place] [address] Anita Leger APRN [address] [facility] [address] [place] [address] documented as of this encounter Visit Diagnoses Not on filedocumented in this encounter Care Teams Montessori Teacher Relationship Specialty Start Date End Date Leonides Haynes MD [address] [facility] [address] [place] [address] PCP - General Family Medicine 05/23/25 documented as of this encounter
--- OUTSIDE RECORDS SUMMARY | 2025-05-28 09:00 | XMS_ITS | Patient Health Record ---
[facility] [address] [facility] [address] [place] [id number] Care Team Providers Care Traffic Maintenance Officer Name Role Phone IvyMaicol Primary Care Provider [phone] Pipo Fowler Unavailable [phone] Vikash Victoria Unavailable [phone] Winifred Sosa Unavailable [phone] Staci Kunz Unavailable [phone] Allergies No Known Allergies Results Component Value Reference Range Notes Mammogram Reviewed date:11/20/2024 05:05:43 PM Interpretation:Negative, annual f/u Performing Lab: Notes/Report: Negative, annual f/u result Negative, annual f/u P-Microalbumin/Creatinine, R andom Urine Sample Reviewed date:02/01/2025 02:38:31 PM Interpretation: Normal Performing Lab: Notes/Report: Test performed by [facility] [address] [place] [address] , [place] [address] Aristeo Reddy MD, Mental Measurements Teacher CLIA: [id number] Albumin/Creatinine Ratio, Urine 9 0-30 ug/mg Microalbumin, Urine, Random 0.3 Creatinine, Urine 32.6 P-TSH reflex to FT4 Reviewed date:02/01/2025 02:38:31 PM Interpretation: Normal Performing Lab: Notes/Report: Test performed by [facility] [address] [place] [address] , [place] [address] Aristeo Reddy MD, Mental Measurements Teacher CLIA: [id number] TSH reflex to FT4 1.03 0.43-5.25 mU/L P-Lipid Panel Reviewed date:02/01/2025 02:38:30 PM Interpretation: Normal Performing Lab: Notes/Report: Test performed by [facility] [address] [place] [address] , [address], [place] [address] Aristeo Reddy MD, Mental Measurements Teacher CLIA: [id number] Cholesterol 106 <200 mg/dL Triglycerides 108 <150 [...] 120 Performing Lab: Notes/Report: Test performed by [facility], [employer] [address] [facility] , [address], [place] [address] Aristeo Reddy MD, Mental Measurements Teacher CLIA: [id number] Sodium 141 135-145 mmol/L Potassium 3.5 3.5-5.3 [...] 1.010 Ketone neg Bili neg Gluc neg H-BMP Reviewed date:03/16/2025 12:43:50 PM Interpretation: Performing Lab: Notes/Report: NA 133 136-145 mmol/L K 3.5 3.5-5.1 mmoL/L CL 101 98-107 mmol/L CO2 30 22.0-30.0 mmol/L GAP 5.5 5-15 mEq/L BUN 13 7-17 mg/dl Delta: 10 on 03/13/25-1854 CREATT 0.70 0.52-1.04 mg/dl CRCLE 37 50-200 mL/min GFRAA 96 >60 ML/MIN EGFR 79 >60 ml/min GLU 188 74-100 mg/dl Delta: 274 on 03/13/25 CA 8.3 8.4-10.2 mg/dl H-CBC Reviewed date:03/16/2025 [...] 274 74-100 mg/dl CA 8.3 8.4-10.2 mg/dl P-TSH reflex to FT4 Reviewed date:05/14/2025 01:28:23 PM Interpretation: Normal Performing Lab: Notes/Report: Test performed by [facility] [address] [place] [address] , [place] [address] Aristeo Reddy MD, Mental Measurements Teacher CLIA: [id number] TSH reflex to FT4 0.81 0.43-5.25 mU/L P-Lipid Panel Reviewed date:05/14/2025 01:28:23 PM Interpretation: Normal Performing Lab: Notes/Report: Test performed by [facility] [address] [place] [address] , [place] [address] Aristeo Reddy MD, Mental Measurements Teacher CLIA: [id number] Cholesterol 120 <200 mg/dL Triglycerides 138 <150 [...] ATPIII guidelines LDL/HDL Ratio 0.7 <3.3 Ratio _ LDL Cholesterol Patient History _ Test Date: 11/03/2023 LDL Results: 37 Units: mg/dL % Change: - - Test Date: 01/26/2025 LDL Results: 29 Units: mg/dL % Change: -21% - Test Date: 05/10/2025 LDL Results: 38 Units: mg/dL % Change: +31% _ P-Comprehensive Metabolic Pa geovanny (CMP) Reviewed date:05/14/2025 01:28:23 PM Interpretation: Normal Performing Lab: Notes/Report: Test performed by [facility], [address] [place] [address] Aristeo Reddy MD, Mental Measurements Teacher IA: [id number] Sodium 141 135-145 mmol/L Potassium 4.0 3.5-5.3 [...] 0.3 <0.2-1.2 mg/dL A/G Ratio 1.4 1.1-2.5 Glycohemoglobin A1c (in hous e) Reviewed date:05/14/2025 01:28:23 PM Interpretation: Normal Performing Lab: Notes/Report: Normal glycohemoglobin 6.9% 5 - 6.5 % CBC Venipuncture (in house) Reviewed date:05/14/2025 01:28:23 [...] - 38 platlet 219 100 - 400 Urinalysis - Inhouse Reviewed date:06/26/2024 01:32:32 PM [...] satisfactory Performing Lab: Notes/Report: Test performed by [facility] [address] , [address], [place] [address] Aristeo Reddy MD, Mental Measurements Teacher CLIA: [id number] Sodium 138 135-145 mmol/L Potassium 3.9 3.5-5.3 [...] 0.2 <0.2-1.2 mg/dL A/G Ratio 1.5 1.1-2.5 P-Surgical Pathology Reviewed date:07/11/2024 11:19:48 AM Interpretation:Squamous [...] maria) Grossing services provided by [facility], [facility], d/b/a [address] [place], [address] Donte Norman MD, Mental Measurements Teacher. Microscopic Description: 1. There are nests of [...] End of Report Technical services provided by [facility], [facility], [address] [place] [address] , [place] [address] Donte Norman MD, Mental Measurements Teacher. Case reviewed and diagnosis rendered at [facility], [facility], d/b/a [address] , [place] [address] Donte Norman MD, Mental Measurements Teacher. CONFIDENTIAL CBC Venipuncture (in house) Reviewed date:03/21/2025 10:23:00 [...] 123 Performing Lab: Notes/Report: Test performed by [facility] [address] , [address], [place] [address] Aristeo Reddy MD, Mental Measurements Teacher CLIA: [id number] Sodium 137 135-145 mmol/L Potassium 4.2 3.5-5.3 [...] Interpretation: Performing Lab: Notes/Report: Test performed by [facility] [address] , [address], [place] [address] Aristeo Reddy MD, Mental Measurements Teacher CLIA: [id number] TSH reflex to FT4 0.90 0.43-5.25 mU/L Medications Medication SIG (Take, Route, Frequency, Duration) Notes Start Date End Date Status glipiZIDE 5 MG 1 tablet with food Orally twice a day; Duration: 90 days Active Omeprazole 20 MG TAKE 1 CAPSULE BY MOUTH DAILY 30 MINUTES BEFORE BREAKFAST; Duration: 30 Active Simvastatin 20 MG TAKE 1 TABLET BY MOUTH DAILY AT BEDTIME; Duration: 90 Active Blood Glucose Test Strips 333 - 1 strip In Vitro once a day or as directed 07/18/2024 Active Potassium Chloride [place] ER 2 0 MEQ TAKE 1 TABLET BY MOUTH ONCE DAILY; Duration: 90 Active Meclizine HCl 25 MG 1 tab(s) orally thre e times a day as needed Active Gabapentin 300 MG 1 cap(s) orally 2 times a day; Duration: 30 days 10/31/2024 Active Aspirin 81 MG 1 tablet Orally Once a day; Duration: 30 day(s) Active metFORMIN HCl 1000 MG TAKE 1 TABLET BY MOUTH TWICE DAILY; Duration: 90 Active OneTouch Ultra DIRECTED ONCE A DAY OR DIRECTED 02/13/2013 Active Ondansetron HCl 4 MG 1 tablet Orally abilio ry 8 hours as needed Active Furosemide 20 MG TAKE 1 TABLET BY MOUTH EVERY OTHER DAY; Duration: 90 Active Os-Barron Calcium + D3 500-5 MG-MCG 1 tablet with meals Orally once a day Active hydroCHLOROthiazide 25 MG TAKE 1 TABLET BY MOUTH DAILY; Duration: 90 Active Lisinopril 10 MG TAKE 1 TABLET BY MOUTH EVERY DAY; Duration: 90 Active Meclizine HCl 25 MG 1 tablet as needed Orally every 8 hrs 03/16/2025 Active Immunizations Vaccine Route Administration Date Status [...] W/U Status Risk Notes Problem Essential hypertension (89222689) Essential hypertension (I10) Active confirmed Problem Type 2 diabetes mellitus with other specified complication (E11.69) Active confirmed Problem Mixed hyperlipidemia (863301701) Mixed hyperlipidemia (E78.2) Active confirmed Problem Goiter (7612059) Goiter (E04.9) Active confirme d Problem Degeneration of lumbar intervertebral disc (75842882) Lumbar degenerative disc disease (M51.36) Active confirmed Problem Atherosclerotic heart disease of elem coronary artery without angina pectoris (652525073816058) 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) Active confirmed Problem Chronic fatigue syndrome (17487671) Chronic fatigue (R53.82) Active confirmed Problem Multiple actinic keratoses (disorder) (705608316) Actinic keratoses (L57.0) Active confirmed Problem Type II diabetes mellitus without complication (783416483) T2DM (type 2 diabetes mellitus) (E11.9) Active confirmed Problem Squamous cell carcinoma of skin (704763815) Squamous cell carcinoma of skin (C44.92) Active confirmed Problem DM - Diabetes mellitus (92052959) DM (diabetes mellitus) (E11.9) Active confirmed Problem Altered mental status (939657952) Altered mental status, unspecified altered mental status type (R41.82) Active confirmed Problem Problem with balance (192974257) Balance problems (R26.89) Active confirmed Problem Dyslipidemia (617933771) Dyslipidemia (E78.5) Active confirmed Problem 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 Problem Postmenopausal (18721947) Postmenopausal (Z78.0) Active confirmed Problem Postconcussion syndrome (45048576) Post concussion syndrome (F07.81) Active confirmed Problem Seasonal allergic rhinitis (272925504) Seasonal allergic rhinitis, unspecified trigger (J30.2) Active confirmed Problem 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 [facility] [address] y [address] [place], [place] [id number] 07/07/2024 Pipo Fowler Squamous cell carcin ariana of skin C44.92 [facility] [address] y [address] [place], [place] [id number] 08/18/2024 Pipo Fowler Squamous cell carcin ariana of skin C44.92 ; 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 ; Essential hypertension I10 and Encounter for immunization Z23 [facility] [address] y [address] [place], [place] [id number] 08/28/2024 Staci Kunz Encounter for immunization Z23 [facility] [address] [place] [id number] 01/01/2025 Pipo Fowler Actinic keratoses L5 7.0 [facility] [address] [place], [place] [id number] 01/26/2025 Staci Kunz Essential hypertensi on I10 ; DM (diabetes mellitus) E11.9 ; Lumbar degenerative disc disease M51.36 ; Mixed hyperlipidemia E78.2 ; 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 ; Seasonal allergic rhinitis, unspecified trigger J30.2 and Dysuria R30.0 [facility] [address] [place], [place] [id number] 03/21/2025 Staci Kunz Dizziness R42 ; Inju ry of head, subsequent encounter S09.90XD ; Post concussion syndrome F07.81 ; Hypokalemia E87.6 ; Essential hypertension I10 and BMI 24.0-24.9, adult Z68.24 [facility] [address] [place], [place] [id number] 05/10/2025 Staci Kunz Adult general medica l examination Z00.00 ; Vertigo R42 ; Balance problems R26.89 ; Essential hypertension I10 ; DM (diabetes mellitus) E11.9 ; Mixed hyperlipidemia E78.2 ; Goiter E04.9 ; Injury of head, subsequent encounter S09.90XD ; Post concussion syndrome F07.81 ; Osteoporosis screening Z13.820 ; Type 2 diabetes mellitus with other specified complication E11.69 and BMI 23.0-23.9, adult Z68.23 [facility] [address] [place], [place] [id number] 07/11/2024 [facility]ipo Fowler [facility] [address] [place], [place] [id number] 07/18/2024 Maicol Haynes [facility] [address] [place] [id number] 08/24/2024 R Chaim Ivy [facility] [address] [place], [place] [id number] 10/31/2024 R Chaim Barthfleet Right hip pain M25.5 51 [facility] [address] [place], [place] [id number] 02/01/2025 Staci Carcamody [facility] [address] [place] [id number] 02/02/2025 R Chaim Ivy [facility] [address] [place], [place] [id number] 03/14/2025 R Chaim Ivy [facility] [address] [place] [id number] 03/16/2025 Vikash Ashdown [facility] [address] [place] [id number] 03/28/2025 Staci Crowdy [facility] [address] [place], [place] [id number] 04/02/2025 Staci Crowdy [facility] [address] [place], [place] [id number] 05/14/2025 R Chaim Ivy [facility] [address] [place], [place] [id number] 05/14/2025 Staci Kunz Assessments Encounter Date Diagnosis (ICD [...] calling to make a cardiology appt at [facility]. They would also like a neurology appt. 03/21/2025 Injury of head, subsequent encounter (ICD-10 - S09.90XD) Patient continues to have symptoms of post concussive syndrome. Will make neurology referral. She needs continued mental and physical rest. 05/10/2025 Vertigo (ICD-10 - R42) 05/10/2025 Adult general medical examination (ICD-10 - Z00.00) Patient instructed to return to office Annually for Annual Wellness Visits to include annual screenings of Pain assessment, Functional Ability assessment, Cognitive Ability assessment, Fall Risk assessment, Depression screening and Bladder control screening. 05/10/2025 Balance problems (ICD-10 - R26.89) 03/21/2025 Post concussion syndrome (ICD-10 - F07.81) 01/26/2025 Lumbar degenerative disc disease (ICD-10 - M51.36) 08/18/2024 Essential hypertension (ICD-10 - I10) 06/26/2024 Actinic keratoses (ICD-10 - L57.0) 06/26/2024 ASCVD (arteriosclerotic cardiovascular disease) (ICD-10 - I25.10) 08/18/2024 Encounter for immunization (ICD-10 - Z23) 01/26/2025 Mixed hyperlipidemia (ICD-10 - E78.2) 03/21/2025 Hypokalemia (ICD-10 - E87.6) 05/10/2025 Essential hypertension (ICD-10 - I10) 05/10/2025 DM (diabetes mellitus) (ICD-10 - E11.9) 03/21/2025 Essential hypertension (ICD-10 - I10) 01/26/2025 Arteriosclerotic cardiovascular disease (ASCVD) (ICD-10 - I25.10) 01/26/2025 Seasonal allergic rhinitis, unspecified trigger (ICD-10 - J30.2) 03/21/2025 BMI 24.0-24.9, adult (ICD-10 - Z68.24) 05/10/2025 Mixed hyperlipidemia (ICD-10 - E78.2) 05/10/2025 Goiter (ICD-10 - E04.9) 01/26/2025 Dysuria (ICD-10 - R30.0) 05/10/2025 Injury of head, subsequent encounter (ICD-10 [...] 05/10/2025 BMI 23.0-23.9, adult (ICD-10 - Z68.23) 03/21/2025 Other Discharge summary with available lab/diagnostic imaging results obtained and reviewed. Discharge medication list reconciled. Appropriate counseling provided. Moderate Complexity Plan Of Treatment Pending Test Test Name Order Date Bone density 05/10/2025 Insurance Providers Payer Name Payer Address Payer Phone Subscriber Number Group Number Insured Name Patient Relationship to Insured Coverage Start Date Coverage End Date MEDICARE PART B [address] [address] [place] [phone] [id number] MARILYN MCMULLEN Self - patient is the insured [facility] [employer] [address] [place] [address] [phone] [id number] MARILYN MCMULLEN Self - patient is the [...]
--- OUTSIDE RECORDS SUMMARY | 2025-05-28 09:01 | XMS_ITS | Data Portability ---
Author Organization [place] - Manoj kaur, [facility] [place] [facility] Address [address] [place] [address] Assessment Encounter Date Assessment Date Assessment LastModified by Organization Details LastModified Time 12/02/2021 12/02/2021 Follow up yearly conner Not available 12/02/2021 07:33:30 12/08/2022 12/08/2022 Follow up yearly [email or web address] Not available 12/08/2022 07:13:39 12/07/2023 12/07/2023 Follow up yearly [email or web address] Not available 12/07/2023 07:09:11 08/29/2024 08/29/2024 Follow up as scheduled [email or web address] Not available 08/29/2024 13:51:09 12/11/2024 12/11/2024 Follow up in 6 months [email or web address] Not available 12/11/2024 10:37:20 Plan of Treatment Reminders Order Date Submit Date Provider Last Modified By Organization Details Last Modified Time Details Appointments DERMATOLO GY VISIT 2025 09:45A M DARIUSZ FLORES MD Not available Not available Not available Lab None recorded. Referral None recorded. Procedures None recorded. Surgeries None recorded. Imaging None recorded. Medication Orders None recorded. Patient TargetsNo targets recorded. Patient Instructions Encounter Date Encounter Id Patient Instructions Last Modified By Organization Details Last Modified Time 12/02/2021 [id number] Education: We discussed the potential diagnostic options, options for further evaluation and treatments, and the risks and benefits of each. conner Not available 12/02/2021 07:33:30 12/08/2022 [id number] Education: We discussed the potential diagnostic options, options for further evaluation and treatments, and the risks and benefits of each. [email or web address] Not available 12/08/2022 07:13:44 12/07/2023 [id number] Education: We discussed the potential diagnostic options, options for further evaluation and treatments, and the risks and benefits of each. [email or web address] Not available 12/07/2023 07:09:16 08/29/2024 [id number] Education: We discussed the potential diagnostic options, options for further evaluation and treatments, and the risks and benefits of each. [email or web address] Not available 08/29/2024 13:31:36 12/11/2024 [id number] Education: We discussed the potential diagnostic options, options for further evaluation and treatments, and the risks and benefits of each. [email or web address] Not available 12/11/2024 10:12:47 Reason for Referral None Reported. Results Created Date Observation Date Name Description Value Unit Range Abnormal Flag Note LastModifiedBy Organization Detail LastModifiedTime Result Notes None recorded. 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 Procedures Surgical History Date Name Laterality Status Provider Name and Address Organization Details Recorded Time 12/11/19 25 Destruction Premalignant Lesion(s) completed [facility] 12/11/2024 10:36:13 12/11/19 25 Destruction BN Lesions completed [facility] 12/11/2024 10:36:11 08/29/20 24 Destruction Premalignant Lesion(s) completed [facility] 08/29/2024 13:50:53 12/07/19 24 Destruction Premalignant Lesion(s) completed Neelima Simpson [facility] 12/07/2023 10:22:35 12/08/19 23 Destruction Premalignant Lesion(s) completed Paola Sullivan [facility] 12/08/2022 10:16:21 12/02/19 22 Destruction [facility] 12/02/2021 10:21:10 12/02/19 22 Destruction BN Lesions completed [facility] 12/02/2021 10:21:20 12/03/19 21 Destruction Premalignant Lesion(s) completed [facility] 12/03/2020 09:29:19 12/05/19 20 Destruction Premalignant Lesion(s) completed [facility] 12/05/2019 09:38:23 12/05/19 20 Destruction BN Lesions completed [facility] 12/05/2019 09:37:59 11/29/19 19 Destruction Premalignant Lesion(s) completed [facility] 11/29/2018 09:46:50 11/23/19 18 Destruction Premalignant Lesion(s) completed [facility] 11/23/2017 09:25:47 11/17/19 17 Destruction Premalignant Lesion(s) completed Paola AlmazanSuleiman [facility] 11/17/2016 09:32:41 Imaging Results None recorded. Procedure [...] Time Tobacco Smoking Status Never Smoker Paola Sullivan [facility] 11/17/2016 09:10:58 What Was The Date [...] SNOMED-CT Code Diagnosis ICD10 Code Diagnosis Note [id number] MD ASPEN JIMENEZ Formerly named [facility] [address] [place] [phone] 11/17/2016 08:45:41 11/17/2016 09:41:24 Actinic keratosis 516799115 L57.0 Education, then cryodestru ction with liquid nitrogen (LN) x 8 on face, chest, and arms. Senile hyperkeratosis 39 0376822 L82.1 Reassuranc e and education regarding the disorder and options. Epidermoid cyst 98460268 6 L72.0 Reassuranc e and education regarding the disorder and options. [id number] MD ASPEN JIMENEZ Formerly named [facility] [address] [place] [address] 11/23/2017 09:16:16 11/25/2017 09:13:58 Actinic keratosis 378069230 L57.0 LN x 7 Senile hyperkeratosis 39 1214304 L82.1 Reassuranc e Lentigo 222526997 L81.4 reassuranc e Epidermoid cyst of skin 126427848 L72.0 reassuranc e [id number] MD ASPEN JIMENEZ Formerly named [facility] [address] [place] [phone] 11/29/2018 09:08:32 11/30/2018 08:17:01 Actinic keratosis 462644273 L57.0 LN x 9 Senile hyperkeratosis 39 6644942 L82.1 Reassuranc e [place]ent[place] 875491541 L81.4 reassuranc e Epidermoid cyst of skin 129800946 L72.0 reassuranc e [id number] MD ASPEN JIMENEZ [place] [address] [place] [address] 7 12/05/2019 09:02:00 12/05/2019 13:39:54 Epidermoid cyst of skin 914761002 L72.0 reassuranc e Senile hyperkeratosis 39 7331803 L82.1 Reassuranc e [place]entigo 278592885 L81.4 reassuranc e Actinic keratosis [address] x 17 Inflamed s eborrheic keratosis 075955806 L82.0 LN x 1 [id number] MD ASPEN JIMENEZ [place] [address] [place] [address] 7 12/03/2020 08:52:54 12/03/2020 12:31:00 Epidermoid cyst of skin 990368172 L72.0 reassuranc e Senile hyperkeratosis 39 6602102 L82.1 Reassuranc e Lentigo 632999605 L81.4 reassuranc e Actinic keratosis [address] x 14 efudex discussed- -pt declines [id number] MD ASPEN JIMENEZ [place] [address] [place] [address] 7 12/02/2021 09:51:20 12/02/2021 10:32:01 Epidermoid cyst of skin 686015517 L72.0 reassuranc e Senile hyperkeratosis 39 2584925 L82.1 Reassuranc e Lentigo 713749475 L81.4 reassuranc eRecommend ed Equate Ultra Sunscreen 30+ and sun protecting hats/cloth ing Actinic keratosis [address] x 4 efudex discussed- -pt declines Inflamed s eborrheic keratosis 552416804 L82.0 LN x 9 [id number] MD AUZL JIM[facility]ZOLO [facility] [address] [place] [address] 7 12/08/2022 09:59:47 12/08/2022 10:19:02 Epidermoid cyst of skin 932893740 L72.0 reassuranc e Senile hyperkeratosis 39 6628350 L82.1 Reassuranc e [place]entigo 350543359 L81.4 reassuranc eRecommend ed Equate Ultra Sunscreen 30+ and sun protecting hats/cloth ing Actinic keratosis 575505 [address] x 22 [id number] MD ASPEN JIMENEZ [facility] [address] [place] [address] 7 12/07/2023 09:46:21 12/07/2023 11:08:36 Epidermoid cyst of skin 004947364 L72.0 Reassuranc e Lentigo 869542994 L81.4 Reassuranc eRecommend ed Equate Ultra Sunscreen 30+ and sun protecting hats/cloth ing Actinic keratosis 912366 [address] x 7 Raised avtar orrheic keratosis 5064273854 46963 L82.1 Reassuranc e [id number] MD ASPEN JIMENEZ [facility] [address] [place] [address] 7 08/29/2024 13:07:15 08/29/2024 14:31:17 Actinic keratosis 577156928 L57.0 LN x 25 History of squamous cell carcinoma of skin 007525854 Z85.828 Lt neck, Lt cheekRevie wed outside path reportNo obvious tumor noted todayDiscu ssed tx optionsWil l proceed w/ close observatio n todayPhoto s todayF/u in 3-4 months for recheck Lentiginosis 975918734 L 81.4 Reassuranc eRecommend ed Equate Ultra Sunscreen 30+ and sun protecting hats/cloth ing Raised avtar orrheic keratosis 9002601163 97850 L82.1 Reassuranc e [id number] MD ASPEN JIMENEZ G[facility] [address] [place] [address] 7 12/11/2024 09:24:42 12/11/2024 10:41:55 History of squamous cell carcinoma of skin 813881091 Z85.828 Lt neck, Lt cheek - untreated, no obvious signs of tumor, photos 08/2024, doing well Lentiginosis 028270111 L 81.4 Reassuranc eRecommend ed Equate Ultra Sunscreen 30+ and sun protecting hats/cloth ing Raised avtar orrheic keratosis 5997045994 58784 L82.1 Reassuranc e Actinic keratosis [address] x 8 Inflamed s eborrheic keratosis 220725872 L82.0 LN x 2 Epidermoid cyst of skin 205742491 L72.0 Reassuranc eDiscussed tx options including observatio [...] OF [place] (MEDICARE SUPPLEMENT) [id number] Joellen Vanessa [id number] Joellen Vanessa 08/29/2024 1 [place] Joellen Vanessa [id number] Joellen Vanessa 12/11/2024 1 [place] Joellen Vanessa [id number] Joellen Vanessa OBGyn Episode No OBEpisode recorded.
--- OUTSIDE RECORDS SUMMARY | 2025-05-28 09:01 | XMS_ITS | Clinical Summary ---
Author Organization [facility] ystem Address [address] [place] [address] Care Team Providers Care Brush Finisher Name Role Phone Leonides Haynes MD Primary Care Provider Encounters Date Type Department Care Team Description 05/23/2025 Telephone [facility] NEUROLOG[facility] [address] [facility] [address] [place] [address] Cornelia Bolden APRN Appointment from Last 3 Months Social History Tobacco Use Types Packs/Day Years [...] on file Sexual Orientation Not on file Last Filed Vital Signs Vital Sign Reading Time Taken Comments Blood Pressure 127/77 09/04/2014 9:26 AM EST Pulse 66 09/04/2014 9:26 AM EST Temperature 36.4 C (97.6 F) 09/04/2014 9:26 AM EST Respiratory Rate 17 09/04/2014 9:26 AM EST Oxygen Saturation 95% 09/04/2014 9:26 AM EST Inhaled Oxygen Concentration - - Weight 65.8 kg (145 lb 2.1 oz) 09/04/2014 9:26 A M EST Height 157.5 cm (5' 2 ) 09/04/2014 9:26 AM EST Body Mass Index 26.54 09/04/2014 9:26 AM EST Plan of Treatment Upcoming Encounters Date Type Department Care Team (Late st Contact Info) Description 08/10/2025 10:30 AM EDT Office Visit [facility] NEUROLOGY [address] [facility] [address] [place] [phone] Cornelia Bolden, [employer] [address] [address] [place] [address] Health Maintenance Due Date Last Done Comments DXA SCAN 1935 RSV Vaccine - Adults (1 - 1- dose 75+ series) 2012 ZOSTER VACCINE (2 of 3) 09/07/2018 07/13/20 18, 05/19/2018, 04/02/2009 COVID-19 Vaccine (5 - 2023-2 5 season) 2024 02/27/2022, 09/02/2021, 12/06/2020, Additional history exists ANNUAL WELLNESS VISIT 05/23/2025 INFLUENZA VACCINE 08/01/2025 08/18/2024, , 08/18/2022, Additional history exists TDAP/TD VACCINES (2 - Td or Tdap) 09/29/2027 017 HEMOGLOBIN A1C Discontinued 08/08/2019, 07/2017, 02/08/2017, Additional history exists Pneumococcal Vaccine 50+ Completed 024, 06/27/2014, 10/12/2008, Additional history exists Procedures Procedure Name Priority Date/Time Associated Diagnosis Comments SCANNED - LABS 03/14/2025 SCANNED - IMAGING 03/13/2025 SCANNED - IMAGING 03/13/2025 SCANNED - IMAGING 03/13/2025 SCANNED - IMAGING 03/13/2025 SCANNED - IMAGING 03/13/2025 SCANNED - IMAGING 03/13/2025 HEMOGLOBIN A1C Routine 08/08/2019 9:45 AM EDT Diabetes mellitus without complication from Last 3 Months or Most Recently Relevant to Health Maintenance Results * LABS SCANNED (03/14/2025) [facility] LAB BLOOD ORDERABLES Final Re sult * IMAGING SCANNED (03/13/2025) Only the most recent of6 resultswithin the time period is included. Anatomical Region Laterality Modality Radiographic Shae ging [facility] IMG DIAGNOSTIC IMAGING ORDERA BLES Final Result * (ABNORMAL) Hemoglobin A1c (08/08/2019 9:45 AM EDT) Hemoglobin A1C 7.54(H) 4.80 - 5.60 % 08/08/2019 6:50 PM EDT [facility] Blood Venipuncture / Unknown 08/08/2019 9:45 AM EDT 08/08/2019 9:45 AM EDT Narrative [facility] - 08/08/2019 6:50 PM EDT Hemoglobin A1C Ranges: Increased Risk for Diabetes 5.7% to 6.4% Diabetes >= 6.5% Diabetic Goal < 7.0% Darryn Reese MD LAB BLOOD ORDERABLES Final R esult [facility]
[address] [place] [address], [place] [phone] from Last 3 Months or Most Recently Relevant to Health Maintenance Insurance MEDICARE A & B [facility] Care Teams Brush Finisher Relationship Specialty Start Date End Date Leonides Haynes MD [address] [facility] [address] [place] [address] PCP - General Family Medicine 05/23/25
--- NOTE | 2025-05-28 09:02 | XR_ITS ---
FINAL REPORT TECHNIQUE: Bone densitometry calculations of the lumbar spine and left hip were obtained. CLINICAL HISTORY: SCREENING COMPARISON: 02/05/2022 FINDINGS: Using L1-4, the bone mineral density of the spine is 1.166 g/cm2, corresponding to T-score of 1.1 and a Z score of 4.0. This is within the range of normal limits. Previously was 1.122 with a T-score of 0.7 and a Z-score of 3.6. Using the left hip, the bone mineral density of the femoral neck is 0.765 g/cm2, corresponding to a T-score of -0.8 and a Z-score of 1.8. This is within the range of normal limits. Previously was 0.800 with a T-score of-0.4 and a Z-score of 2.1. FRAX not reported because all T-scores at or above-1.0. NOTE: T-score: Standard deviation compared with peak bone mass of young adult mean. *Following the recommendations of the International Society of Bone densitometry, classification of hip BMD is based on the lower of two T-scores; total hip or femoral neck. IMPRESSION: 1. Bone mineral density of the lumbar spine within the range of normal limits. 2. Bone mineral density of the left femoral neck within the range of normal limits. Reviewed, Interpreted and Dictated by Jazmyne Bailey MD Transcribed by Vanessa Doe Authenticated and [facility]
== END 2025-05-28 23:59 | disposition home or self-care (01) ==
LOC: RAD 08:57
PROVIDERS: PCP Family Medicine; Visit Provider Physician Assistant
DX: M81.0 Age-related osteoporosis without current pathological fracture (principal)
CPT/HCPCS: 77080

== ENCOUNTER 2025-05-30 11:00 | Outpatient (RCR) | payer MEDICARE, BC, SELFPAY ==
--- NOTE | 2025-05-21 16:52 | HMH.PTOPEV ---
PT Outpatient Evaluation Rehab PT Outpatient Evaluation Start: 05/21/25 16:30 Freq: Status: Active Protocol: Document 05/21/25 16:35 PHORNE (Rec: 05/21/25 16:50 PHORNE [id number]) E-signed By Marlo Vincent, PT Outpatient Therapy Subjective History Subjective History This is the initial PT eval for Joellen Vanessa, 89 yowf who presents with c/o dizziness and decreased balance x ~ 2 mos. Pt suffered a fall backwards, hitting the back of her head on a concrete floor with resulting concussion. All other tests were negative for brain bleed or CVA. She reports her dizziness can be worse with certain positions like bending forward and laying flat in supine initially. These episodes last 10 -15 sec and do not include vertigo. She also endorses blurry vision intermittently as well. She has hx of HTN and DM. She has seen cardiology with all tests clear so far. They did report incidental finding of significant thyroid nodules and further work-up is pending. Chief Complaint Other Level of pain today 0 (0-10) Balance Eval Hx of Falls Hx Falls Yes Number in last 6 1 months Nystagmus Nystagmus Presence None Oculomotor Gaze Oculomotor Gaze Nml: Vergence Smooth Pursuit Saccades VOR Cancellation Cover/Uncover Cross Cover [place]berg Feet Together/Eyes pass open/Stable Surface Feet Together/Eyes pass Closed/Stable Surface Feet Together/Eyes fail open/Unstable Surface Feet Together/Eyes fail Closed/Unstable Surface Dynamic Gait Index Test Protocol Gait Level Surface Normal Query Text: Instructions: Walk at your normal speed from here to the next tressa (20'). Grading: Tresas the lowest category that applies. Change in Gait Speed Normal Query Text: Instructions: Begin walking at your normal pace (for 5') , when I tell you go , walk as fast as you can (for 5'). When I tell you slow , walk as slowly as you can ( for 5'). Grading: Tressa the lowest category that applies. Gait with Horizontal Moderate Impairment Head Turns Query Text: Instructions: Begin walking at your normal pace. When I tell you to look right , keep walking straight, but turn you head to the right. Keep looking to the right unit I tell you look left , then keep walking straight and turn your head to the left. Keep your head to the left until I tell you look straight , then keep walking straight, but return you head to the center. Grading: Tressa the lowest category that applies. Gait with Vertical Moderate Impairment Head Turns Query Text: Instructions: Begin walking at your normal pace. When I tell you to look up , keep walking staight, but tip your head up. Keep looking up until I tell you to look down , then keep walking straight and tip your head down. Keep your head down until I tell you look straight , then keep walking straight, but return your head to the center. Grading: Tressa the lowest category that applies. Gait and Pivot Turn Mild Impairment Query Text: Instructions: Begin walking at your normal pace. When I tell you turn and stop , turn as quickly as you can to face the opposite direction and stop. Grading: Tressa the lowest category that applies. Step Over Obstacle Mild Impairment Query Text: Instructions: Begin walking at your normal speed. When you come to the shoebox, step over it, not around it and keep walking. Grading: Tressa the lowest category that applies. Step Around Normal Obstacles Query Text: Instructions: Begin walking at normal speed. When you come to the first cone (about 6' away) , walk around the right side of it. When you come to the second cone (6' past first cone), walk around it to the left. Grading: Tressa the lowest category that applies. Steps Moderate Impairment Query Text: Instructions: Walk up these stairs as you would at home. At the top, turn around and walk down . Grading: Tressa the lowest category that applies. Scoring Dynamic Gait Index 16 Score Miscellaneous Dx PT Eval Objective Objective Michael-Hallpike and horizontal roll testing performed with no nystagmus noted on either side. All occulomotor testing normal for age group at this time. Finger Rub Test was diminished on R side. DGI reproduces symptoms with gait with turning head horizontal and vertical. Outpatient Therapy Assessment Impairments Problems/ Impaired Walking,Impaired Household Care,Impaired Impairmments Recreational Activities,Impaired Balance,Impaired DGI Score,Impaired Self Care/Self Management Prognosis Rehab Potential Good Comment Skilled therapy is indicated in order to improve overall balance and reduce dizziness while ambulating in order to return pt to PLOF. Clinical Impression Consistent with Yes Diagnosis Short Term Goals Number of Weeks 2 Increase DGI Score Yes: 18 or better Patient to be Ind w/ Yes HEP Halfway Goals Number of Weeks 4 Increase Ability to Yes: without dizziness > 15 min Walk Return to Yes: without dizziness Recreational Activities Increase DGI Score Yes: 20 or better Patient to be Ind w/ Yes Advanced HEP Outpatient Therapy Plan of Care Treatment Plan May Include Therapeutic Exercise Yes Including Home Exercise Program Manual Therapy Yes Techniques Neuromuscular Re- Yes education Therapeutic Yes Activities to Return to Previous Functional/Work Level Gait Training Yes ADL/Self Care Yes Education Eval/Re-Eval Yes Frequency Times per week 2 Duration Number of Weeks 4 Addendums This patient is a No candidate for social or vocational rehab ? Patient/Guardian Yes verbally acknowledges understanding of treatment program and consents to further treatment? Patient/Guardian Yes verbally acknowledges understanding of diagnosis, prognosis and goals for treatment? Eval Complexity PT Charges 27240 - High Complexity Shoulder/Elbow Eval Shoulder Objective Measurements Elbow Objective Measurements PHYSICIAN CERTIFICATION: I certify the specified therapy services for Joellen Delcid Amalfredoyaquelin are required, authorized, and reviewed every 30 days.
== END 2025-05-30 23:59 | disposition home or self-care (01) ==
LOC: PT 11:00
PROVIDERS: PCP Family Medicine; Visit Provider Physician Assistant
DX: R26.89 Other abnormalities of gait and mobility (principal)
CPT/HCPCS: 97112; 97163

== ENCOUNTER → 2025-06-05 09:40 | Outpatient (RCR) | payer MEDICARE, BC, SELFPAY | LOC: PT 09:40 | PROVIDERS: PCP Family Medicine; Visit Provider Physician Assistant | DX: R26.89 Other abnormalities of gait and mobility (principal); R42 Dizziness and giddiness | CPT/HCPCS: 97110; 97112 ==

== ENCOUNTER 2025-10-09 13:32 | Outpatient (CLI) | payer MEDICARE, BC, SELFPAY ==
--- NOTE | 2025-10-09 14:00 | US_ITS ---
FINAL REPORT TECHNIQUE: Limited sonographic images of the thyroid were obtained. CLINICAL HISTORY: monitor for treatment of multiple thyroid nodules COMPARISON: Since 04/09/2025 FINDINGS: The right lobe of the thyroid measures 4.8 x 1.8 x 2.6 cm. The left lobe of the thyroid measures 3.7 x 1.3 x 1.8 cm. There are multiple cystic and solid nodules throughout both lobes. Individual nodules measure up to 1.4 cm, similar to prior exam. The isthmus measures 2 mm. There is a dominant, cystic and solid complex nodule measuring 3.6 cm, was 3.8 cm. IMPRESSION: Multiple cystic and solid nodules bilaterally, favor multinodular goiter. Dominant mass in the isthmus. If not already biopsied, recommend biopsy per TI-RADS criteria. Reviewed, Interpreted and Dictated by Paul Padilla MD Transcribed by Guerda Quezada Authenticated and . [facility]
== END 2025-10-09 23:59 | disposition home or self-care (01) ==
LOC: RAD 13:33
PROVIDERS: PCP Family Medicine; Visit Provider Nurse Practitioner
DX: E04.2 Nontoxic multinodular goiter (principal)
CPT/HCPCS: 76536